=== PATIENT | female | born 1970 | race Caucasian/White ===

== ENCOUNTER 2023-09-18 20:46 | Outpatient (REF) | payer BC, SELFPAY ==
[2023-09-24 09:07] LABS: Age Gdln ACOG Testing Note (.); HPV Aptima Negative (Negative); IGP, Aptima HPV, rfx 16/18,45 Note (.)
== END 2023-09-18 20:47 | disposition home or self-care (01) ==
LOC: LAB 20:46
PROVIDERS: Visit Provider Obstetrics & Gynecology
DX: Z01.419 Encounter for gynecological examination (general) (routine) without abnormal findings (principal)
CPT/HCPCS: G0145

== ENCOUNTER 2023-11-29 07:40 | Outpatient (OUT) | payer BC, SELFPAY ==
--- NOTE | 2023-11-29 07:41 | MM_ITS ---
Patient Name: KIKA DANIELLE MR#: [id number] : 1970 Exam Date: 11/29/2023 Ordering Doctor: DR Kyaw Cruz . RADIOLOGY REPORT PROCEDURE: MM TOMOSYNTHESIS SCREENING BI COMPARISON: MG MAMM SCREEN 3D FADIA CAD, 09/17/2021. MG MAMM SCREEN 3D FADIA CAD, 10/27/2022. INDICATIONS: Screening Calculator Name NCI Breast Cancer Risk Assessment Tool 5 Year Breast Cancer Risk 1.10% Lifetime Breast Cancer Risk 9.70% Personal Breast Cancer No Personal Ovarian Cancer No Treatments None Family Cancers Aunt-paternal with breast cancer at age ~60; Father with colon cancer at age ~60. LOCATION: [facility] BREAST COMPOSITION: The breasts are heterogeneously dense,which may obscure small masses. FINDINGS: DIAGNOSTIC CATEGORY 1--NEGATIVE. NO CHANGE FROM COMPARISON ASSESSMENT. Scattered benign-appearing calcifications are present. Scattered benign-appearing lymph nodes are present. RIGHT BREAST: No significant suspicious finding. LEFT BREAST: No significant suspicious finding. RECOMMENDATIONS: ROUTINE MAMMOGRAM AND CLINICAL EVALUATION IN 12 MONTHS. PLEASE NOTE: A NORMAL MAMMOGRAM DOES NOT EXCLUDE THE POSSIBILITY OF BREAST CANCER. A CLINICALLY SUSPICIOUS PALPABLE LUMP SHOULD BE BIOPSIED. Dictated by: Neo Og MD on 11/29/2023 at 13:02 Approved by: Neo Og MD on 11/29/2023 at 13:03
--- OUTSIDE RECORDS SUMMARY | 2023-11-29 07:44 | XMS_ITS | CCD ---
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 Cleaner Name Role Phone Michelle Cardoza Unavailable NANI, DR MICHELLE Rosas Attending Unavailable CARDOZA, DR MICHELLE Rosas Consulting Unavailable CARDOZA, DR MICHELLE Rosas Primary Care Unavailable CARDOZA, DR MICHELLE Rosas Admitting Unavailable KARASIK ., DR ALVARENGA Admitting Unavailabl e CARDOZA, DR MICHELLE Rosas Primary Care Unavailable KARASIK ., DR ALVARENGA Attending Unavailabl e KARASIK ., DR ALVARENGA Consulting Unavailabl e WEST, DR LESLI Cr Consulting Unavailable ZIEBER, DR FILIPE Chavez Consulting Unavailable CARDOZA, DR MICHELLE Rosas Primary Care Unavailable KARASIK ., DR ALVARENGA Attending Unavailabl e KARASIK ., DR ALVARENGA Consulting Unavailabl e KARASIK ., DR ALVARENGA Admitting Unavailabl e CARDOZA, DR MICHELLE Rosas Primary Care Unavailable TIMMIS, DR SMITH Attending Unavailable TIMMIS, DR SMITH Consulting Unavailable TIMMIS, DR SMITH Admitting Unavailable WEST, DR LESLI Cr Consulting Unavailable SHANNON RIVERA Attending Unavailable Allergies Allergy Classification Reported Allergen(s) Allergy Type Date of Onset Reaction(s) Facility Penicillins (antibiotic) (1 source) Penicillins Drug Allergy 3 PENICILLINS Comment:REACTIO N HAPPENED A CHILD [facility] Sulfonamides (antibiotic) (1 source) Sulfonamides (Antibiotic) Drug Allergy 3 [facility] (2 sources) Penicillin Drug Allergy Unknown [employer] Other (2 sources) Substance with sulfonamide structure and antibacterial mechanism of action (substance) Drug allergy Unknown [employer] Other (1 source) Penicillins Drug allergy (disorder) 4 [facility] (1 source) Sulfonamides (Antibiotic) Drug allergy (disorder) 4 [facility] Medications Current Medications Medication Drug Class(es) Dates Sig (Normalized) Sig (Original) ciprofloxacin 250 mg oral tablet (2 sources) Quinolone Antimicrobial Start: 10-24-2022 take 1 tablet by mouth every twelve hours Ciprofloxacin HCl 250 MG 1 tablet Orally every 12 hrs for 5 day(s) Oct, Active Completed/Discontinued Medications Medication Drug Class(es) Dates Sig (Normalized) Sig (Original) triamcinolone acetonide 40 mg/ml injectable suspension (1 source) Corticosteroid Start: 11-29-2022 Kenalog-40 October, 60 mg Problems Problem Classification Problem Date Documented Da te Episodic/Chronic Genitourinary symptoms and ill-defined conditions (1 source) Dysuria Episodic Immunizations and screening for infectious disease (1 source) Encounter for screening for human papillomavirus (HPV); Translations: [ENC SCREENING HUMAN PAPILLOMAVIRUS] Onset: 09-19-2022 Episodic Other bone disease and musculoskeletal deformities (1 source) Other specified disorders of bone density and structure, left thigh; Translations: [OTH D/O BONE DEN STRUCT LT THIGH] Onset: 11-03-2022 Episodic Other ear and sense organ disorders (4 sources) Sensorineural hearing loss, bilateral; Translations: [SENSORINEURAL HEAR LOSS BILATERAL] Onset: 04-28-2022 Chronic Other screening for suspected conditions (not mental disorders or infectious disease) (8 sources) Encounter for screening mammogram for malignant neoplasm of breast; Translations: [Encounter for screening for malignant neoplasm of cervix] Onset: 09-13-2022 Episodic Other upper respiratory disease (1 source) Seasonal allergic rhinitis; Translations: [Other seasonal allergic rhinitis] Chronic Other upper respiratory disease (1 source) Other seasonal allergic rhinitis Chronic Residual codes; unclassified (1 source) Asymptomatic menopausal state; Translations: [ASYMPTOMATIC MENOPAUSAL STATE] Onset: 11-03-2022 Episodic Residual codes; unclassified (1 source) Family history of malignant neoplasm of breast; Translations: [FAMILY HX MALIG NEOPLASM OF BREAST] Onset: 11-03-2022 Episodic Residual codes; unclassified (1 source) Family history of malignant neoplasm of digestive organs; Translations: [FAM HX MALIG NEOPLASM DIGESTIV ORGN] Onset: 11-03-2022 Episodic Results Test Name Value Interpretation Reference Range Facility XR DEXA BONE DENSITYon 10-28 XR DEXA BONE DENSITY EXAMINATION: XR DEX A BONE DENSITY, 10/27/2022 3:26 PM EDT HISTORY: Menopause present COMPARISON: None. TECHNIQUE: Dual-energy X-ray absorptiometry (DEXA) bone density study performed for the axial skeleton. FINDINGS: SPINE ANALYSIS: Average bone mineral density is 1.209 g/cm2. T-score (standard deviation relative to young adult mean): 0.2 . HIP ANALYSIS: Lowest bone mineral density is within the left femoral trochanter, 0.708 g/cm2. T-score (standard deviation relative to young adult mean): -1.2 . IMPRESSION: [employer] Classification: Osteopenia - Moderate Fracture Risk Electronically authenticated by: FILIPE MORAES Date: 2022-10-28 06:58 Normal [facility] MAMM SCREEN 3D FADIA CADon 10-27-2022 MG MAMM SCREEN 3D FADIA CAD Patient: KIKA KUMAR Exam Date: 10/27/2022 : 1970 Gender:F Ordering : DR LYLE VASQUEZ . Admission #: [id number] Family : Order #: [id number] CLICK HERE TO VIEW EXAM RADIOLOGY REPORT PROCEDURE: MAMMOGRAM SCREENING 3D BILATERAL CAD COMPARISON: MG MAMM SCREEN FADIA W CAD, 06/17/2020. MG MAMM SCREEN 3D FADIA CAD, 09/17/2021. INDICATIONS: Screeening Calculator Name NCI Breast Cancer Risk Assessment Tool 5 Year Breast Cancer Risk 1.10% Lifetime Breast Cancer Risk 9.90% Personal Breast Cancer No Personal Ovarian Cancer No Treatments None Family Cancers Aunt-paternal with breast cancer at age 60; Father with colon cancer at age 60. LOCATION: [facility] BREAST COMPOSITION: Heterogeneously dense,which may obscure small masses. FINDINGS: DIAGNOSTIC CATEGORY 1--NEGATIVE. NO CHANGE FROM COMPARISON ASSESSMENT. Scattered benign-appearing calcifications are present. Scattered benign-appearing lymph nodes are present. RIGHT BREAST: No significant suspicious finding. LEFT BREAST: No significant suspicious finding. RECOMMENDATIONS: ROUTINE MAMMOGRAM AND CLINICAL EVALUATION IN 12 MONTHS. PLEASE NOTE: A NORMAL MAMMOGRAM DOES NOT EXCLUDE THE POSSIBILITY OF BREAST CANCER. A CLINICALLY SUSPICIOUS PALPABLE LUMP SHOULD BE BIOPSIED. Dictated by: Lesli Almazan MD on 10/28/2022 at 07:39 Approved by: Lesli Almazan MD on 10/28/2022 at 07:42 Normal [facility] PAP ACOG PANEL 2: 30 to 65on 09-22-2022 . . Normal [facility] Comment on above: Result Comment: Perf ormed at: WB Performed By: #### [id number] #### [facility] [address] [place] [address] Dr. Jihan Bryant Age Gdln ACOG Testing 30-65 Normal [facility] Comment on above: Performed By: #### [id number] #### [facility] [address] [place] [address] Dr. Jihan Bryant DIAGNOSIS: Comment Normal [facility] Comment on above: Result Comment: NEGA TIVE FOR INTRAEPITHELIAL LESION OR MALIGNANCY. THIS SPECIMEN WAS RESCREENED PART OF OUR HYDROPULPER OPERATOR PROGRAM. Performed at: WB Performed By: #### [id number] #### [facility] [address] [place] [address] Dr. Jihan Bryant HPV Aptima Negative Normal Negative [facility] Comment on above: Result Comment: This nucleic acid amplification test detects fourteen high-risk HPV types (16,18,31,33,35,39,45,51,52,56,58,59,66,68) without differentiation. Performed at: =G Performed By: #### [id number] #### [facility] [address] [place] [address] Dr. Jihan Bryant HPV Genotype Reflex Comment Normal [facility] Comment on above: Result Comment: Crit eria not met, HPV Genotype not performed. Performed at: WB Performed By: #### [id number] #### [facility] [address] [place] [address] Dr. Jihan Bryant Methodology: Comment Normal [facility] Comment on above: Result Comment: This liquid based ThinPrep(R) pap test was screened with the use of an image guided system. Performed at: WB Performed By: #### [id number] #### [facility] [address] [place] [address] Dr. Jihan Bryant Note: Comment Normal [facility] Comment on above: Result Comment: The Pap smear is a screening test designed to aid in the detection of premalignant and malignant conditions of the uterine cervix. It is not a diagnostic procedure and should not be used as the sole means of detecting cervical cancer. Both false-positive and false-negative reports do occur. . Performed at: WB Performed By: #### [id number] #### [facility] [address] [place] [address] Dr. Jihan Bryant Performed by: Comment Normal [facility] Comment on above: Result Comment: Hakan Anderson, Performing Artist (ASCP) Performed at: WB Performed By: #### [id number] #### [facility] [address] [address] [address] Jihan Bryant QC reviewed by: Comment Normal [facility] Comment on above: Result Comment: Catracho Liang, Supervisory Performing Artist (ASCP) Performed at: WB Performed By: #### [id number] #### [facility] [address] [place] [address] Dr. Jihan Bryant Specimen adequacy: Comment Normal [facility] Comment on above: Result Comment: Sati sfactory for evaluation. Areas of partially obscuring inflammatory exudate are present. Performed at: WB Performed By: #### [id number] #### [facility] [address] [place] [address] Dr. Jihan Bryant MRI IACS WO W CONon 04-28-20 22 MRI IACS WO W CON EXAMINATION: MRI IAC S WO W CON HISTORY: Sensorineural hearing loss, bilateral COMPARISON: No relevant comparison available. TECHNIQUE: A limited examination was performed of the internal auditory canals. Images were obtained without and contrast. FINDINGS: IACS: Negative. No evidence of an acoustic schwannoma. INNER EARS: Negative. No abnormal signal intensity. MIDDLE EARS: Negative. No fluid or abnormal soft tissue. MASTOIDS: Negative. No fluid or abnormal soft tissue. BRAIN: Mild scattered white matter signal abnormality, nonspecific.. No edema, mass, or inappropriate atrophy within the field of view. CSF SPACES: Negative. No visible mass. IMPRESSION: Mild white matter disease, nonspecific No acute infarct No evidence of an acoustic schwannoma Electronically authenticated by: LESLI ALMAZAN Date: 2022-04-28 19:05 Normal [facility] CBC AUTO DIFFon 02-25-2022 BASO # 0.1 103/ul Normal 0.0-0.1 [facility] Comment on above: Performed By: #### C BC #### [facility] [address] [address] [address] Jihan Bryant Basophils/100 WBC (Bld) 0.6 % Normal 0.2-2.0 [facility] Comment on above: Performed By: #### C BC #### [facility] [address] [address] [address] Jihan Bryant EO # 0.1 103/ul Normal 0.0-0.7 [facility] Comment on above: Performed By: #### C BC #### [facility] [address] [address] [address] Jihan Bryant Eosinophils/100 WBC (Bld) 1.5 % Normal 0.9-7.0 [facility] Comment on above: Performed By: #### C BC #### [facility] [address] [place] [address] Dr. Jihan Bryant Erythrocyte distribution width (RBC) [Ratio] 13.4 % Normal 11.0-15.0 [facility] Comment on above: Performed By: #### C BC #### [facility] [address] [place] [address] Dr. Jihan Bryant Hematocrit (Bld) [Volume fraction] 46.9 % Normal 36.0-48.0 [facility] Comment on above: Performed By: #### C BC #### [facility] [address] [place] [address] Dr. Jihan Bryant Hemoglobin (Bld) [Mass/Vol] 15.5 g/dL Normal 12.0-16.0 [facility] Comment on above: Performed By: #### C BC #### [facility] [address] [place] [address] Dr. Jihan Bryant IG # 0.04 10e3/ul Critically high 0.00-0.03 [facility] Comment on above: Performed By: #### C BC #### [facility] [address] [place] [address] Dr. Jihan Bryant IG % 0.5 % Normal 0.0-0.5 [facility] Comment on above: Performed By: #### C BC #### [facility] [address] [place] [address] Dr. Jihan Bryant LYMPH # 2.4 103/ul Normal 1.2-3.8 [facility] Comment on above: Performed By: #### C BC #### [facility] [address] [place] [address] Dr. Jihan Bryant Lymphocytes/100 WBC (Bld) 29.5 % Normal 20.5-60.0 [facility] Comment on above: Performed By: #### C BC #### [facility] [address] [place] [address] Dr. Jihan Bryant MANUAL DIFF REQ NO Normal [facility] Comment on above: Performed By: #### C BC #### [facility] [address] [place] [address] Dr. Jihan Byrant MCH (RBC) [Entitic mass] 31.3 pg Normal 26.7-34.0 [facility] Comment on above: Performed By: #### C BC #### [facility] [address] [place] [address] Dr. Jihan Bryant MCHC (RBC) [Mass/Vol] 33.0 g/dL Normal 29.9-35.2 [facility] Comment on above: Performed By: #### C BC #### [facility] [address] [place] [address] Dr. Jihan Bryant MCV (RBC) [Entitic vol] 94.7 fL Normal 81.0-99.0 [facility] Comment on above: Performed By: #### C BC #### [facility] [address] [place] [address] Dr. Jihan Bryant MONO # 0.6 103/ul Normal 0.3-0.8 [facility] Comment on above: Performed By: #### C BC #### [facility] [address] [place] [address] Dr. Jihan Bryant Monocytes/100 WBC (Bld) 7.7 % Normal 1.7-12.0 [facility] Comment on above: Performed By: #### C BC #### [facility] [address] [place] [address] Dr. Jihan Bryant NEUT # 5.0 103/ul Normal 1.4-6.5 [facility] Comment on above: Performed By: #### C BC #### [facility] [address] [place] [address] Dr. Jihan Bryant Neutrophils/100 WBC (Bld) 60.2 % Normal 43.0-75.0 [facility] Comment on above: Performed By: #### C BC #### [facility] [address] [place] [address] Dr. Jihan Bryant Platelet mean volume (Bld) [Entitic vol] 8.9 fL Critically low 9.5-13.5 [facility] Comment on above: Performed By: #### C BC #### [facility] [address] [place] [address] Dr. Jihan Bryant PLT 284 103/ul Normal 150-450 [facility] Comment on above: Performed By: #### C BC #### [facility] [address] [place] [address] Dr. Jihan Bryant RBC 4.95 106/ul Normal 4.20-5.40 [facility] Comment on above: Performed By: #### C BC #### [facility] [address] [place] [address] Dr. Jihan Bryant WBC 8.3 103/ul Normal 4.0-11.0 [facility] Comment on above: Performed By: #### C BC #### [facility] [address] [place] [address] Dr. Jihan Bryant GLYCOHEMOGLOBIN A1Con 2021 ADA RECOMMENDATION SEE BELOW Normal [facility] Comment on above: Result Comment: ADA RECOMMENDED LIMIT 4.0 - 6.0 ADA THERAPEUTIC TARGET < 7.0 ACTION SUGGESTED > 7.0 Performed By: #### A 1C #### [facility] [address] [place] [address] Dr. Jihan Bryant Glucose [Mass/Vol] 111 mg/dL Normal [facility] Comment on above: Performed By: #### A 1C #### [facility] [address] [address] [address] Jihan Bryant HbA1c (Bld) [Mass fraction] 5.5 % Normal 4.5-6.2 [facility] Comment on above: Performed By: #### A 1C #### [facility] [address] [address] [address] Jihan Bryant LIPID PROFILEon 02-25-2022 CHOL-HDL RATIO NORM SEE BELOW Normal [facility] Comment on above: Result Comment: 3.3 - 4.4 LOW RISK 4.4 - 7.1 AVERAGE RISK 7.1 - 11.0 MODERATE RISK >11.0 HIGH RISK Performed By: #### C MP, LIPID, TSH #### [facility] [address] [place] [address] Dr. Jihan Bryant Cholesterol [Mass/Vol] 229 mg/dL Critically high <=200 [facility] Comment on above: Performed By: #### C MP, LIPID, TSH #### [facility] [address] [address] [address] Jihan Bryant Cholesterol in HDL [Mass/Vol] 59 mg/dL Normal 40-60 [facility] Comment on above: Performed By: #### C MP, LIPID, TSH #### [facility] [address] [place] [address] Dr. Jihan Bryant Cholesterol in LDL [Mass/Vol] 149.4 mg/dL Normal [facility] Comment on above: Performed By: #### C MP, LIPID, TSH #### [facility] [address] [address] [address] Jihan Bryant Cholesterol.total/Cho lesterol in HDL [Mass ratio] 3.9 {ratio} Normal [facility] Comment on above: Performed By: #### C MP, LIPID, TSH #### [facility] [address] [place] [address] Dr. Jihan Bryant HDL NORMAL > or = 60 mg/dl - LO W CARDIOVASCULAR RISK <40 mg/dl - HIGH CARDIOVASCULAR RISK Normal [facility] Comment on above: Performed By: #### C MP, LIPID, TSH #### [facility] [address] [address] [address] Jihan Bryant LDL CALC NORMAL SEE BELOW Normal [facility] Comment on above: Result Comment: <100 mg/dl OPTIMAL 100 - 129 mg/dl NEAR OR ABOVE OPTIMAL 130 - 159 mg/dl BORDERLINE HIGH 160 - 189 mg/dl HIGH >190 mg/dl VERY HIGH Performed By: #### C MP, LIPID, TSH #### [facility] [address] [address] [address] Jihan Bryant Triglyceride [Mass/Vol] 103 mg/dL Normal <=150 [facility] Comment on above: Performed By: #### C MP, LIPID, TSH #### [facility] [address] [place] [address] Dr. Jihan Bryant VLDL CALC 20.6 mg/dL Normal [facility] Comment on above: Performed By: #### C MP, LIPID, TSH #### [facility] [address] [place] [address] Dr. Jihan Bryant PROF 14(COMP METB)on 022 Albumin [Mass/Vol] 3.9 g/dL Normal 3.4-5.0 [facility] Comment on above: Performed By: #### C MP, LIPID, TSH #### [facility] [address] [place] [address] Dr. Jihan Bryant Albumin/Globulin [Mass ratio] 1.2 {ratio} Normal [facility] Comment on above: Performed By: #### C MP, LIPID, TSH #### [facility] [address] [place] [address] Dr. Jihan Bryant ALP [Catalytic activity/Vol] 93 U/L Normal 46-116 [facility] Comment on above: Performed By: #### C MP, LIPID, TSH #### [facility] [address] [place] [address] Dr. Jihan Bryant ALT [Catalytic activity/Vol] 22 U/L Normal 14-59 [facility] Comment on above: Performed By: #### C MP, LIPID, TSH #### [facility] [address] [place] [address] Dr. Jihan Bryant Anion gap [Moles/Vol] 9.9 mmol/L Normal [facility] Comment on above: Performed By: #### C MP, LIPID, TSH #### [facility] [address] [address] [address] Jihan Bryant AST [Catalytic activity/Vol] 12 U/L Critically low 15-37 [facility] Comment on above: Performed By: #### C MP, LIPID, TSH #### [facility] [address] [place] [address] Dr. Jihan Bryant Bilirubin [Mass/Vol] 0.9 mg/dL Normal 0.2-1.0 [facility] Comment on above: Performed By: #### C MP, LIPID, TSH #### [facility] [address] [place] [address] Dr. Jihan Bryant Calcium [Mass/Vol] 9.1 mg/dL Normal 8.5-10.1 [facility] Comment on above: Performed By: #### C MP, LIPID, TSH #### [facility] [address] [place] [address] Dr. Jihan Bryant Chloride [Moles/Vol] 104 mmol/L Normal 98-107 [facility] Comment on above: Performed By: #### C MP, LIPID, TSH #### [facility] [address] [place] [address] Dr. Jihan Bryant CO2 [Moles/Vol] 30.4 mmol/L Normal 21.0-32.0 [facility] Comment on above: Performed By: #### C MP, LIPID, TSH #### [facility] [address] [place] [address] Dr. Jihan Bryant Creatinine [Mass/Vol] 0.71 mg/dL Normal 0.55-1.02 [facility] Comment on above: Performed By: #### C MP, LIPID, TSH #### [facility] [address] [place] [address] Dr. Jihan Bryant EGFR-AF ICELANDIC >60 Normal >=60 [facility] Comment on above: Performed By: #### C MP, LIPID, TSH #### [facility] [address] [address] [address] Jihan Bryant EGFR-NON AF ICELANDIC >60 Normal >=60 [facility] Comment on above: Performed By: #### C MP, LIPID, TSH #### [facility] [address] [address] [address] Jihan Bryant Globulin (S) [Mass/Vol] 3.2 g/dL Normal [facility] Comment on above: Performed By: #### C MP, LIPID, TSH #### [facility] [address] [place] [address] Dr. Jihan Bryant Glucose [Mass/Vol] 104 mg/dL Normal 74-106 [facility] Comment on above: Performed By: #### C MP, LIPID, TSH #### [facility] [address] [place] [address] Dr. Jihan Bryant Potassium [Moles/Vol] 4.3 mmol/L Normal 3.5-5.1 [facility] Comment on above: Performed By: #### C MP, LIPID, TSH #### [facility] [address] [place] [address] Dr. Jihan Bryant Protein [Mass/Vol] 7.1 g/dL Normal 6.4-8.2 [facility] Comment on above: Performed By: #### C MP, LIPID, TSH #### [facility] [address] [place] [address] Dr. Jihan Bryant Sodium [Moles/Vol] 140 mmol/L Normal 136-145 [facility] Comment on above: Performed By: #### C MP, LIPID, TSH #### [facility] [address] [place] [address] Dr. Jihan Bryant Urea nitrogen [Mass/Vol] 18.0 mg/dL Normal 7.0-18.0 [facility] Comment on above: Performed By: #### C MP, LIPID, TSH #### [facility] [address] [place] [address] Dr. Jihan Bryant Urea nitrogen/Creatinine [Mass ratio] 25.4 mg/mg Normal [facility] Comment on above: Performed By: #### C MP, LIPID, TSH #### [facility] [address], [place] [address] Dr. Jihan Bryant TSHon 02-25-2022 TSH 2.224 uIU/mL Normal 0.358-3.740 [facility] Comment on above: Performed By: #### C MP, LIPID, TSH #### [facility] [address], [place] [address] Dr. Jihan Bryant Ambulatory Clinical Summaryo n 08-19-2020 Ambulatory Clinical Summary {[id number] Normal [facility] General Surgery Office/Clini c Noteon 08-19-2020 General Surgery Office/Clinic Note HPI Staff 3 week post operative visit following umbilical hernia repair at [facility]. Denies pain or complications. History of Present Illness 3 weeks s/p primary umbilical hernia repair; doing well, denies pain, no drainage from incision, wearing abdominal binder; no strenuous activities; Review of Systems ROS - Provider Constitutional: no fever, no sweats, no weight loss. Eyes: no glasses, no blurred vision, no visual loss. ENMT: no dentures, no hoarseness, no swallowing difficulties, no hearing loss, no ear infection(s), no nose bleeds. Cardiovascular: normal blood pressure, no chest pain, regular heartbeat, no heart murmur. Respiratory: no shortness of breath, no cough, no asthma, no wheezing. Gastrointestinal: no nausea, no vomiting, no diarrhea, no constipation, no blood in stool, no change in bowel habits, no abdominal pain, no hepatitis. Genitourinary: no kidney stones, no urine infection, no dysuria. Musculoskeletal: no pain, no weakness. Skin: no changing moles, no rash, no skin lumps. Neurologic: no seizures, no epilepsy, no headache. Psychiatric: no emotional or psychiatric problem. Heme/Lymph: no bleeding problems, no anemia, no blood clots, no transfusions. Allergy/Immunologic: no swollen lymph nodes/glands, no IV drug abuse. Other: Additional ROS info: Except as noted in the above Review of Systems and in the History of Present Illness, all other systems have been reviewed and are negative or noncontributory. Physical Exam abd: soft, normal bs; incision without erythema or drainage, no ecchymoses, no seroma or recurrent hernias. Assessment/Plan 1. Umbilical hernia (K42.9: Umbilical hernia without obstruction or gangrene) doing well, continue to wear abdominal binder for 1 more week and no lifting > 10 lbs, then gradually increase activities back to normal; call with problems/questions. 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 Medications Zyrtec, Daily Allergies penicillin (Rash) sulfa drugs (Rash) Social History Alcohol - Denies Alcohol Use, 06/23/2020 Substance Abuse - Denies Substance Abuse, 06/23/2020 Tobacco Never (less than 100 in lifetime) Tobacco Use:., 07/21/2020 Family History Anxiety: Mother. Arthritis: Mother. COPD: Mother and Father. Colon cancer: Father. Depression: Mother. Diabetes mellitus type 2: Mother. Heart disease: Father. [facility] Comment on above: Result Comment: Elec tronically Signed By: Dilshad MARTELL MD\.br\Date and Time Signed: 08/19/20 13:26 EST Consultation Noteon 08-11-19 21 Consultation Note [id number] .[id number]:127 Normal [facility] RAD - MRI Reporton RAD - MRI Report [id number] .[id number]:127 Normal [facility] Ambulatory Clinical Summaryo n 08-05-2020 Ambulatory Clinical Summary {[id number]}CD:[id number] [facility] General Surgery Office/Clini c Noteon 08-05-2020 General Surgery Office/Clinic Note History of Present Illness 1 week s/p primary repair of small umbilical hernia at time of open ovarian cystectomy by Dr Vasquez; patient doing well, mild soreness, not taking any pain medication, normal bms, no drainage from incision, voiding well, no fevers, no N/V; wearing abdominal binder. Review of Systems ROS - Provider Constitutional: no fever, no sweats, no weight loss. Eyes: no glasses, no blurred vision, no visual loss. ENMT: no dentures, no hoarseness, no swallowing difficulties, no hearing loss, no ear infection(s), no nose bleeds. Cardiovascular: normal blood pressure, no chest pain, regular heartbeat, no heart murmur. Respiratory: no shortness of breath, no cough, no asthma, no wheezing. Gastrointestinal: no nausea, no vomiting, no diarrhea, no constipation, no blood in stool, no change in bowel habits, mild abdominal pain, no hepatitis. Genitourinary: no kidney stones, no urine infection, no dysuria. Musculoskeletal: no pain, no weakness. Skin: no changing moles, no rash, no skin lumps. Neurologic: no seizures, no epilepsy, no headache. Psychiatric: no emotional or psychiatric problem. Heme/Lymph: no bleeding problems, no anemia, no blood clots, no transfusions. Allergy/Immunologic: no swollen lymph nodes/glands, no IV drug abuse. Other: Additional ROS info: Except as noted in the above Review of Systems and in the History of Present Illness, all other systems have been reviewed and are negative or noncontributory. Physical Exam abd: soft, normal bs, nontender, nondistended, incision healing well, glue intact; no drainage, mild resolving ecchymoses. Assessment/Plan 1. Umbilical hernia (K42.9: Umbilical hernia without obstruction or gangrene) doing well, continue no lifting > 10 lbs for an additional 3 weeks, continue to wear abdominal binder; f/u in 2 weeks, call sooner if problems/questions. 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 Medications Zyrtec, Daily Allergies penicillin (Rash) sulfa drugs (Rash) Social History Alcohol - Denies Alcohol Use, 06/23/2020 Substance Abuse - Denies Substance Abuse, 06/23/2020 Tobacco Never (less than 100 in lifetime) Tobacco Use:., 07/21/2020 Family History Anxiety: Mother. Arthritis: Mother. COPD: Mother and Father. Colon cancer: Father. Depression: Mother. Diabetes mellitus type 2: Mother. Heart disease: Father. [facility] Comment on above: Result Comment: Elec tronically Signed By: NIURKA PIERRE, Dilshad Dahl\Date and Time Signed: 08/05/20 17:23 EST Operative Reporton 1 Operative Report [id number] .[id number]:127 Normal [facility] Operative Reporton 1 Operative Report [id number] .00CD:127 [facility] Ambulatory Clinical Summaryo n 07-21-2020 Ambulatory Clinical Summary {[id number] [facility] Patient Educationon 07-21-19 21 Patient Education Urinary Tract Infection Urinary tract infections (UTIs) can develop anywhere along your urinary tract. Your urinary tract is your body's drainage system for removing wastes and extra water. Your urinary tract includes two kidneys, two ureters, a bladder, and a urethra. Your kidneys are a pair of lawson-shaped organs. Each kidney is about the size of your fist. They are located below your ribs, one on each side of your spine. CAUSES Infections are caused by microbes, which are microscopic organisms, including fungi, viruses, and bacteria. These organisms are so small that they can only be seen through a microscope. Bacteria are the microbes that most commonly cause UTIs. SYMPTOMS Symptoms of UTIs may vary by age and gender of the patient and by the location of the infection. Symptoms in young women typically include a frequent and intense urge to urinate and a painful, burning feeling in the bladder or urethra during urination. Older women and men are more likely to be tired, shaky, and weak and have muscle aches and abdominal pain. A fever may mean the infection is in your kidneys. Other symptoms of a kidney infection include pain in your back or sides below the ribs, nausea, and vomiting. DIAGNOSIS To diagnose a UTI, your caregiver will ask you about your symptoms. Your caregiver also will ask to provide a urine sample. The urine sample will be tested for bacteria and white blood cells. White blood cells are made by your body to help fight infection. TREATMENT Typically, UTIs can be treated with medication. Because most UTIs are caused by a bacterial infection, they usually can be treated with the use of antibiotics. The choice of antibiotic and length of treatment depend on your symptoms and the type of bacteria causing your infection. HOME CARE INSTRUCTIONS ? If you were prescribed antibiotics, take them exactly as your caregiver instructs you. Finish the medication even if you feel better after you have only taken some of the medication. ? Drink enough water and fluids to keep your urine clear or pale yellow. ? Avoid caffeine, tea, and carbonated beverages. They tend to irritate your bladder. ? Empty your bladder often. Avoid holding urine for long periods of time. ? Empty your bladder before and after sexual intercourse. ? After a bowel movement, women should cleanse from front to back. Use each tissue only once. SEEK MEDICAL CARE IF: ? You have back pain. ? You develop a fever. ? Your symptoms do not begin to resolve within 3 days. SEEK IMMEDIATE MEDICAL CARE IF: ? You have severe back pain or lower abdominal pain. ? You develop chills. ? You have nausea or vomiting. ? You have continued burning or discomfort with urination. MAKE SURE YOU: ? Understand these instructions. ? Will watch your condition. ? Will get help right away if you are not doing well or get worse. Document Released: 03/29/2006 Document Revised: 12/18/2012 Document Reviewed: 07/27/2012 ExitCare? Patient Information ?2013 [facility] [employer] [facility]. [facility] Urology Office/Clinic Noteon 07-21-2020 Urology Office/Clinic Note Chief Complaint Pt is new and referred by Dr. Vasquez pt is having ureter stents put in on 07/29/2020. This patient is a 49-year-old female with a history of a left ovarian cyst and umbilical hernia. She is being scheduled for combined general surgery and [employer] surgery procedure. A request has been made for placement of ureteral stents to aid in the dissection of the pelvic portion of procedure. HPI Staff Pt is new and here referred by pt is having ureter stents put in on 07/29/2020. Pain with urination:Pt denies pain and burning Blood in urine:Pt denies Incomplete bladder emptying:Pt denies Frequency:Pt states she goes a lot but does not have urgency Urgency:Pt denies Nocturia:Pt denies Hesitancy:Pt denies Urination requires straining:P denies Stream:Pt denies Stream starts and stops:Pt denies Leaking before getting to the restroom:Pt denies Urinary incontinence without sensory awareness:Pt denies Temporarily unable to restrain urination with body movement:Pt states occasionally Wearing pad/Depends:Pt denies Urine odor:Pt denies Flank/Back pain:Pt denies Abdominal pain:Pt denies History of Present Illness Reviewed urine, MRI, and referral papers from Dr. Vasquez. There have been no associated fever, chills, flank pain or blood in the urine. Pt. denies any pain/burning with urination at this time. Review of Systems ROS - Provider Constitutional: denies weight loss, denies hot flashes. Eyes: denies eye problems. Gastrointestinal: denies nausea, denies vomiting. Cardiovascular: denies chest pain or angina. Integumentary: no dryness Musculoskeletal: denies musculoskeletal symptoms. ENMT: denies otolaryngeal symptoms. Respiratory: no shortness of breath. Heme/Lymph: denies easy bleeding tendency, denies easy bruising tendency. Psychiatric: no confusion, no anxiety. Genitourinary: denies vaginal discharge, denies incontinence, denies dysuria, denies hematuria, denies urinary frequency, denies amenorrhea, denies menorrhagia, denies abnormal bleeding, denies pelvic pain, denies genital sores, and denies decreased libido. Physical Exam Vitals & Measurements HR: 82(Peripheral) RR: 16 BP: 120/81 HT: 167 cm HT: 167.0 cm WT: 88.0 kg WT: 88.0 kg BMI: 31.55 General Appearance: alert , no acute distress, well nourished, well developed female. Head: normocephalic . Eyes: normal orbit and globe. ENMT: normal examination of external ears. Chest: Lungs CTA, respirations non labored . Cardiovascular: regular rate and rhythm. Abdomen: soft, non distended, no tenderness, no mass or organomegaly, no hernia. Genitourinary: bladder nonpalpable, no flank tenderness. Lymph Nodes: unremarkable palpation of the cervical area. Skin: warm, dry, no bruising. Psychiatric: cooperative, affect appropriate for age, normal judgement, euthymic mood. Assessment/Plan This patient has a left ovarian cyst and umbilical hernia both of which is scheduled for surgery. She is here today to discuss the urologic portion of the procedure that will include cystoscopy and bilateral ureteral stent placement. The procedure, risk and potential complications have been discussed. Informed consent has been obtained. 1. Ovarian cyst (N83.209: Unspecified ovarian cyst, unspecified side) Pt. referred by Dr. Vasquez and will be having surgery with him on 07/29/2020. MRI done on 06/23/2020 showed large 18cm simple appearing cystic structure within the midline pelvis and lower abd. of uncertain etiology. Today I discussed with the pt. having Cysto/ureteral stent placement prior to the procedure. All questions/concerns were discussed. Pt. to call the office if sheencounters any issues prior. Pt. acknowledges understanding. 2. Umbilical hernia (K42.9: Umbilical hernia without obstruction or gangrene) Surgery will be on 07/29/2020. 3. Stress incontinence (N39.3: Stress incontinence (female) (male)) Intermittent. Pt. is doing well overall w/ his urination w/ no bothersome symptoms. Orders: Urnls Dip Stick Auto w/o Microscopy POC [id number] I have reviewed the previous health record information and history for this pt. from Dr. Cummings. Follow-up With When Contact Information Emiliano Mcconnell MD, Tony Schaefer [address] [place] [address]- Additional Instructions: Patient Education Urinary Tract Infection Deanna Flaherty , personally scribed for Dr. Cummings on 07/21/2020 09:49:20. Documentation recorded by the scribe, Deanna Lee, accurately reflects the services(s) I performed and decisions made by me. Authenticated by Dr. Cummings on 07/21/2020 09:57:29. 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 Medications Zyrtec, Daily Allergies penicillin (Rash) sulfa drugs (Rash) Social History Alcohol - Denies Alcohol Use, 06/23/2020 Substance Abuse - Denies Substance Abuse, 06/23/2020 Tobacco Never (less than 100 in lifetime) Tobacco Use:., 07/21/2020 Family History Anxiety: Mother. Arthritis: Mother. COPD: Mother and Father. Colon cancer: Father. Depression: Mother. Diabetes mellitus type 2: Mother. Heart disease: Father. Lab Results Ambulatory Point of Care Results Bilirubin Urine Dipstick: 1+ Small (07/21/20 09:04:00) Blood Urine Dipstick: Negative (07/21/20 09:04:00) Glucose Urine Dipstick: Negative (07/21/20 09:04:00) Ketones Urine Dipstick: 1+ 15 mg/dl (07/21/20 09:04:00) Leukocytes Urine Dipstick: Negative (07/21/20 09:04:00) Nitrite Urine Dipstick: Negative (07/21/20 09:04:00) Protein Urine Dipstick: Trace (07/21/20 09:04:00) Specific Runge Urine Dipstick: >=1.030 (07/21/20 09:04:00) Urine Appearance Urine Dipstick: Clear (07/21/20 09:04:00) Urine Color Urine Dipstick: Dark yellow (07/21/20 09:04:00) Urobilinogen Urine Dipstick: Normal 0.2-1 EU/dl (07/21/20 09:04:00) pH Urine Dipstick: 5 (07/21/20 09:04:00) Diagnostic Results Urinalysis was reviewed. No evidence of infection was noted. Normal [facility] Comment on above: Result Comment: Elec tronically Signed By: Emiliano Mcconnell MD, Tony L\.br\Date and Time Signed: 07/21/20 09:57 EST\.br\Electronically Co-Signed By: Deanna Lee MA\.br\Date and Time Co-Signed: 07/21/20 09:49 EST Consent for Procedure/Surger yon 07-08-2020 Consent for Procedure/Surgery [id number] .[id number]:127 Normal [facility] Ambulatory Clinical Summaryo n 06-24-2020 Ambulatory Clinical Summary {[id number]}CD:[id number] Normal [facility] Facesheeton 06-24-2020 Facesheet [id number]. 00CD:127 Normal [facility] Provider Letter FTon 06-24 Provider Letter FT MICHELLE CARDOZA, [address] [place] [address] Re: KIKA KUMAR Date of : 1970 Thank you for your referral of Kika Kumar who was seen on consultation on June 23, 2020, for umbilical hernia. A possible combined surgery is planned. I have enclosed my consultation notes for your review. I will be happy to follow Kika should her symptoms persist. Sincerely, Dilshad Martell MD General Surgery [facility] General Surgery Office/Clini c Noteon 06-23-2020 General Surgery Office/Clinic Note Chief Complaint referral for umbilical hernia HPI Staff 49 year old female presents on consultation from Dr. Cardoza for umbilical hernia. Present for greater than one year. History of Present Illness 49 yo female with 1 year h/o umbilical hernia, no change in size, sore at times, no skin changes, no N/V or bowel changes; no incisions through umbilicus; abdominal operations significant for c section via Pfannenstiel incision, and vaginal hysterectomy; patient has large ovarian cyst that Dr Vasquez is evaluating for surgery, and is interested in a possible combined procedure; no asa or NSAID use; no tobacco use. had MRI of pelvis today, no abdominal ct scans. Review of Systems PHQ Score Initial Depression Screen Score: 0 ROS - Provider Constitutional: no fever, no sweats, no weight loss. Eyes: no glasses, no blurred vision, no visual loss. ENMT: no dentures, no hoarseness, no swallowing difficulties, no hearing loss, no ear infection(s), no nose bleeds. Cardiovascular: normal blood pressure, no chest pain, regular heartbeat, no heart murmur. Respiratory: no shortness of breath, no cough, no asthma, no wheezing. Gastrointestinal: no nausea, no vomiting, no diarrhea, no constipation, no blood in stool, no change in bowel habits, no abdominal pain, no hepatitis. Genitourinary: no kidney stones, no urine infection, no dysuria. Musculoskeletal: no pain, no weakness. Skin: no changing moles, no rash, no skin lumps. Neurologic: no seizures, no epilepsy, no headache. Psychiatric: no emotional or psychiatric problem. Heme/Lymph: no bleeding problems, no anemia, no blood clots, no transfusions. Allergy/Immunologic: no swollen lymph nodes/glands, no IV drug abuse. Other: Additional ROS info: Except as noted in the above Review of Systems and in the History of Present Illness, all other systems have been reviewed and are negative or noncontributory. Physical Exam Vitals & Measurements T: 36.5 ?C (Tympanic) HR: 76(Peripheral) RR: 16 BP: 126/82 HT: 167.6 cm HT: 167.64 cm WT: 87.4 kg WT: 87.4 kg BMI: 31.1 HEENT: normal conjunctiva, sclera clear, no scleral icterus, EOM intact, PERRLA. oral mucosa moist without lesions Neck: trachea midline , no mass, symmetric, no thyromegaly or nodules. no adenopathy Respiratory: lungs CTA, respirations non labored. Cardiovascular: regular rate and rhythm, no murmur, , no pedal edema or varicosities. Gastrointestinal: obese, soft, non distended, no tenderness, no masses, approximately 1 cm incarcerated umbilical hernia, mild tenderness, no skin changes diastasis recti no, no hepatosplenomegaly. normal bs Lymphatic: no cervical adenopathy, no axillary adenopathy, no inguinal adenopathy. Musculoskeletal: normalgait, digits and nails without infection, nodes, cyanosis, clubbing. Skin: no rashes, no lesions, no ulcers, no subcutaneous nodules, induration. Psychiatric/Neuro: oriented to time, place, person, judgement normal, affect appropriate for age, insight intact, no focal deficits. Tests: review of old records completed, Discussed surgical options, risks, and possible complications with patient. Assessment/Plan 1. Umbilical hernia (K42.9: Umbilical hernia without obstruction or gangrene) possible combined surgery with ovarian cyst removal; await Dr Vasquez's plan; would favor primary repair due to small hernia. informed consent obtained. 2. BMI 31.0-31.9,adult (Z68.31: Body mass index [BMI] 31.0-31.9, adult) recommend diet and exercise. Ordered: Most recent diastolic blood pressure 80-89 mm Hg 3079F Systolic BP <130 mm Hg (Most Recent) 3074F Follow-up No qualifying data available Patient Education Exercise to Lose Weight, [id number] Problem List/Past Medical History Ongoing Allergic rhinitis, seasonal Umbilical hernia Historical No qualifying data Procedure/Surgical History LEEP (12/01/2013), Vaginal total hysterectomy (07/03/2013), section. Medications No active medications Allergies penicillin (Rash) sulfa drugs (Rash) Social History Alcohol - Denies Alcohol Use, 06/23/2020 Substance Abuse - Denies Substance Abuse, 06/23/2020 Tobacco Never (less than 100 in lifetime) Tobacco Use:., 06/23/2020 Family History Diabetes mellitus type 2: Mother. Primary malignant neoplasm of colon: Father. Normal [facility] Comment on above: Result Comment: Elec tronically Signed By: NIURAK PIERRE, Dilshad Dahl\Date and Time Signed: 06/23/20 16:50 EST Patient Educationon 06-23-20 20 Patient Education Exercise to Lose Weight Exercise and a healthy diet may help you lose weight. Your doctor may suggest specific exercises. EXERCISE IDEAS AND TIPS ? Choose low-cost things you enjoy doing, such as walking, bicycling, or exercising to workout videos. ? Take stairs instead of the elevator. ? Walk during your lunch break. ? Park your car further away from work or school. ? Go to a gym or an exercise class. ? Start with 5 to 10 minutes of exercise each day. Build up to 30 minutes of exercise 4 to 6 days a week. ? Wear shoes with good support and comfortable clothes. ? Stretch before and after working out. ? Work out until you breathe harder and your heart beats faster. ? Drink extra water when you exercise. ? Do not do so much that you hurt yourself, feel dizzy, or get very short of breath. Exercises that burn about 150 calories: ? Running 1 ? miles in 15 minutes. ? Playing volleyball for 45 to 60 minutes. ? Washing and waxing a car for 45 to 60 minutes. ? Playing touch football for 45 minutes. ? Walking 1 ? miles in 35 minutes. ? Pushing a stroller 1 ? miles in 30 minutes. ? Playing basketball for 30 minutes. ? Raking leaves for 30 minutes. ? Bicycling 5 miles in 30 minutes. ? Walking 2 miles in 30 minutes. ? Dancing for 30 minutes. ? Shoveling snow for 15 minutes. ? Swimming laps for 20 minutes. ? Walking up stairs for 15 minutes. ? Bicycling 4 miles in 15 minutes. ? Gardening for 30 to 45 minutes. ? Jumping rope for 15 minutes. ? Washing windows or floors for 45 to 60 minutes. Document Released: 07/22/2011 Document Revised: 09/10/2012 Document Reviewed: 07/22/2011 ExitCare? Patient Information ?2014 [facility] [employer] [facility] Physician Referralon 020 Physician Referral [id number] .[id number]:127 [facility] Encounters Encounter Date Encounter Type Care Provider Facility Start: 11-24-2023 End: 11-24-2023 ambulatory [facility] Work Phone: Start: 11-24-2023 End: 11-24-2023 Patient encounter procedure [facility] Work Phone: Start: 09-18-2023 End: 09-18-2023 ambulatory SHANNON RIVERA Not Available Start: 11-29-2022 End: 11-29-2022 ambulatory Michelle Cardoza Other [employer] Other Start: 11-29-2022 Nursing evaluation o f patient and report Michelle Cardoza [facility] Start: 10-27-2022 End: 10-28-[address] LYLE VASQUEZ . Facility:[facility] Start: 10-24-2022 End: 10-24-2022 ambulatory Michelle Cardoza Other [employer] Other Start: 10-24-2022 Nursing evaluation o f patient and report Michelle Cardoza [facility] Start: 09-13-2022 End: 09-13-[address] MICHELLE CARDOZA Facility:[facility] Start: 04-28-2022 End: 04-29-[address] MICHELLE CARDOZA Facility:[facility] Start: 02-28-2022 Encounter for genera l adult medical examination without abnormal findings DR MICHELLE CARDOZA [facility] Start: 02-25-2022 End: 02-26-[address] MICHELLE CARDOZA Facility:[facility] Start: 02-25-2022 End: 02-26-2022 Encounter for general adult medical examination without abnormal findings DR MICHELLE CARDOZA Facility:[facility] Payers Date Payer Category Payer [facility] [id number] 2019 Unknown [id number] 1970 Unknown [id number] 1970 Unknown [id number] [id number] [id number] 1970 Unknown [id number] [id number] [id number] 1970 Unknown [id number] 2.16.84 [id number] 1970 Unknown [id number] Social History Date Type Detail Facility Sex Assigned At [employer] Other Start: 1970 Sex Assigned At Female F [facility] Evaluation note 11-29-2022 Note Date & Type Note Facility 11-29-2022 Evaluation note Encounter Date Diagnosis Assessment Notes October, Seasonal allergic rhinitis, unspecified trigger (ICD-10 - J30.2) [facility] Other Evaluation note 10-24-2022 Note Date & Type Note Facility 10-24-2022 Evaluation note Encounter Date Diagnosis Assessment Notes Oct, Dysuria (ICD-10 - R30.0) [facility] Other Evaluation note Note Date & Type Note Facility Evaluation note No assessment information availa [facility] Work Phone: Summary Purpose Family History No Family History Records FoundNo Family History Records FoundNo Family History Records Found Advance Directives Advance Directive Response Recorded Date/ Time Advance Directives No November 23 10:04am Chief Complaint and Reason for Visit Chief Complaint Allergy Shot Additional Source Comments INFORMATION SOURCE (unrecogn ized section and content) DATE CREATED AUTHOR 08/21/2020 [facility] DATE CREATED AUTHOR AUTHOR'S ORGANIZ ATION 11/04/2022 [facility] DATE CREATED AUTHOR AUTHOR'S ORGANIZ ATION 09/19/2023 [facility] EPIC REASON FOR VISIT (unrecogniz ed section and content) UA-Possible UTIAllergy Shot Care Teams (unrecognized sec tion and content) Team Status: Active Member Role Status Dates Michelle Cardoza MD Primary Care Provider Active Team Status: Inactive Member Role Status Dates Michelle Cardoza MD Primary Care Provide r, Attending Provider Active Start: November 24, 2023 End: November 24, 2023 Goals (unrecognized section and content) Goals may be documented in a n alternate section FOR RECORDS PERTAINING TO PATIENTS WHO ARE OR HAVE BEEN ENROLLED IN A CHEMICAL DEPENDENCY/SUBSTANCEABUSE PROGRAM, SOME INFORMATION MAY BE OMITTED. This clinical summary was aggregated from multiple sources. Caution should be exercised in using it in the provision of clinical care. This summary normalizes information from multiple sources, and as a consequence, information in this document may materially change the coding, format and clinical context of patient data. In addition, data may be omitted in some cases. CLINICAL DECISIONS SHOULD BE BASED ON THE PRIMARY CLINICAL RECORDS. [facility] [employer] [facility]. provides no warranty or guarantee of the accuracy or completeness of information in this document.
== END 2023-11-29 07:41 | disposition home or self-care (01) ==
LOC: MAMMO 07:40
PROVIDERS: PCP Family Medicine; Visit Provider Obstetrics & Gynecology
DX: Z00.00 Encounter for general adult medical examination without abnormal findings (principal); Z12.31 Encounter for screening mammogram for malignant neoplasm of breast; Z80.3 Family history of malignant neoplasm of breast; Z80.0 Family history of malignant neoplasm of digestive organs
CPT/HCPCS: 36415; 77063; 77067; 80053; 80061; 83036; 84443; 85025

== ENCOUNTER 2023-11-29 08:18 | Outpatient (OUT) | payer BC, SELFPAY ==
--- OUTSIDE RECORDS SUMMARY | 2023-11-29 08:35 | XMS_ITS ---
Patient Summarization (C-CDA 2.1 CCD) Created on: November 29, 2023 Kika Vidales : 1970 Sex: Female Author Organization Sample organization Care Team Providers Care Access Manager Name Role Phone Michelle Cardoza Unavailable NANI, [...] 3 PENICILLINS Comment:REACTIO N HAPPENED A CHILD [facility] Sulfonamides (antibiotic) (1 source) Sulfonamides (Antibiotic) Drug Allergy 3 [facility] (2 sources) Penicillin Drug Allergy Unknown [facility] Other (2 sources) Substance with sulfonamide structure and antibacterial mechanism of action (substance) Drug allergy Unknown [facility] Other (1 source) Penicillins Drug allergy (disorder) 4 [facility] (1 source) Sulfonamides (Antibiotic) Drug allergy (disorder) 4 [facility] Encounters Encounter Date Encounter Type Care Provider Facility Start: 11-24-2023 End: 11-24-2023 ambulatory [facility] Work Phone: Start: 11-24-2023 End: 11-24-2023 Patient encounter procedure [facility] Work Phone: Start: 09-18-2023 End: 09-18-2023 ambulatory SHANNON RIVERA Not Available Start: 11-29-2022 End: 11-29-2022 ambulatory Michelle Cardoza Other [facility] Other Start: 11-29-2022 Nursing evaluation o f patient and report Michelle Cardoza [facility] Start: 10-27-2022 End: 10-28-[address] LYLE VASQUEZ . Facility:[facility] Start: 10-24-2022 End: 10-24-2022 ambulatory Michelle Cardoza Other [facility] Other Start: 10-24-2022 Nursing evaluation o f patient and report Michelle Cardoza [facility] Start: 09-13-2022 End: 09-13-[address] MICHELLE CARDOZA Facility:[facility] Start: 04-28-2022 End: 04-29-[address] MICHELLE CARDOZA Facility:[facility] Start: 02-28-2022 Encounter for genera l adult medical examination without abnormal findings DR MICHELLE CARDOZA [facility] Start: 02-25-2022 End: 02-26-[address] MICHELLE CARDOZA Facility:[facility] Start: 02-25-2022 End: 02-26-2022 Encounter for general adult medical examination without abnormal findings DR MICHELLE CARDOZA Facility:[facility] Medications Current Medications Medication Drug Class(es) Dates [...] Corticosteroid Start: 11-29-2022 Kenalog-40 October, 60 mg Payers Date Payer Category Payer [facility] [id number] 2019 Unknown [id number] 1970 Unknown [id number] 2.16.84 [id number] 1970 Unknown [id number] 2.16.84 [id number] 1970 Unknown [id number] 2.16.84 [id number] 1970 Unknown [id number] 2.16.84 [id number] 1970 Unknown [id number] 2.16.84 [id number] Problems Problem Classification Problem Date Documented Da [...] by: FILIPE MORAES Date: 2022-10-28 06:58 Normal [facility] MAMM SCREEN 3D FADIA CADon 10-27-2022 MG MAMM SCREEN 3D FADIA CAD Patient: KIKA KUMAR Exam Date: 10/27/2022 : 1970 Gender:F Ordering : DR LYLE VASQUEZ . Admission #: [id number] Family : Order #: [id number] CLICK HERE TO VIEW EXAM RADIOLOGY REPORT [...] colon cancer at age 61. LOCATION: [facility] BREAST COMPOSITION: Heterogeneously dense,which may obscure [...] Almazan MD on 10/28/2022 at 07:42 Normal [facility] PAP ACOG PANEL 2: 30 to 65on 09-22-2022 . . Normal [facility] Comment on above: Result Comment: Perf ormed at: WB Performed By: #### [id number] #### [facility] [address] [address] [address] Jihan Bryant Age Gdln ACOG Testing 30-65 Normal [facility] Comment on above: Performed By: #### [id number] #### [facility] [address] [place] [address] Dr. Jihan Bryant DIAGNOSIS: Comment Normal [facility] Comment on above: Result Comment: NEGA TIVE FOR INTRAEPITHELIAL LESION OR MALIGNANCY. THIS SPECIMEN WAS RESCREENED PART OF OUR LAUNDRY MARKER SUPERVISOR PROGRAM. Performed at: WB Performed By: #### [id number] #### [facility] [address] [address] [address] Jihan Bryant HPV Aptima Negative Normal Negative [facility] Comment on above: Result Comment: This nucleic acid amplification test detects fourteen high-risk HPV types (16,18,31,33,35,39,45,51,52,56,58,59,66,68) without differentiation. Performed at: =G Performed By: #### [id number] #### [facility] [address] [address] [address] Jihan Bryant HPV Genotype Reflex Comment Normal [facility] Comment on above: Result Comment: Crit eria not met, HPV Genotype not performed. Performed at: WB Performed By: #### [id number] #### [facility] [address] [place] [address] Dr. Jihan Bryant Methodology: Comment Normal [facility] Comment on above: Result Comment: This liquid based ThinPrep(R) pap test was screened with the use of an image guided system. Performed at: WB Performed By: #### [id number] #### [facility] [address] [place] [address] Dr. Jihan Bryant Note: Comment Normal [facility] Comment on above: Result Comment: The Pap smear is a screening test designed to aid in the detection of premalignant and malignant conditions of the uterine cervix. It is not a diagnostic procedure and should not be used as the sole means of detecting cervical cancer. Both false-positive and false-negative reports do occur. . Performed at: WB Performed By: #### [id number] #### [facility] [address] [place] [address] Dr. Jihan Bryant Performed by: Comment Normal [facility] Comment on above: Result Comment: Hakan Anderson, Passenger Brakeman (ASCP) Performed at: WB Performed By: #### 4 [id number] #### [facility] [address] [place] [address] Dr. Jihan Bryant QC reviewed by: Comment Normal [facility] Comment on above: Result Comment: Catracho Liang, Supervisory Passenger Brakeman (ASCP) Performed at: WB Performed By: #### [id number] #### [facility] [address] [place] [address] Dr. Jihan Bryant Specimen adequacy: Comment Normal [facility] Comment on above: Result Comment: Sati sfactory for evaluation. Areas of partially obscuring inflammatory exudate are present. Performed at: WB Performed By: #### [id number] #### [facility] [address] [place] [address] Dr. Jihan Bryant MRI IACS WO W CONon 27-20 22 MRI IACS WO W CON EXAMINATION: [...] by: LESLI ALMAZAN Date: 2022-04-28 19:05 Normal [facility] CBC AUTO DIFFon 02-25-2022 BASO # 0.1 103/ul Normal 0.0-0.1 [facility] Comment on above: Performed By: #### C BC #### [facility] [address] [place] [address] Dr. Jihan Bryant Basophils/100 WBC (Bld) 0.6 % Normal 0.2-2.0 [facility] Comment on above: Performed By: #### C BC #### [facility] [address] [place] [address] Dr. Jihan Bryant EO # 0.1 103/ul Normal 0.0-0.7 [facility] Comment on above: Performed By: #### C BC #### [facility] [address] [place] [address] Dr. Jihan Bryant Eosinophils/100 WBC (Bld) 1.5 % Normal 0.9-7.0 [facility] Comment on above: Performed By: #### C BC #### [facility] [address] [place] [address] Dr. Jihan Bryant Erythrocyte distribution width (RBC) [Ratio] 13.4 % Normal 11.0-15.0 [facility] Comment on above: Performed By: #### C BC #### [facility] [address] [place] [address] Dr. Jihan Bryant Hematocrit (Bld) [Volume fraction] 46.9 % Normal 36.0-48.0 [facility] Comment on above: Performed By: #### C BC #### [facility] [address] [place] [address] Dr. Jihan Bryant Hemoglobin (Bld) [Mass/Vol] 15.5 g/dL Normal 12.0-16.0 [facility] Comment on above: Performed By: #### C BC #### [facility] [address] [place] [address] Dr. Jihan Bryant IG # 0.04 10e3/ul Critically high 0.00-0.03 [facility] Comment on above: Performed By: #### C BC #### [facility] [address] [place] [address] Dr. Jihan rByant IG % 0.5 % Normal 0.0-0.5 [facility] Comment on above: Performed By: #### C BC #### [facility] [address] [place] [address] Dr. Jihan Bryant LYMPH # 2.4 103/ul Normal 1.2-3.8 [facility] Comment on above: Performed By: #### C BC #### [facility] [address] [place] [address] Dr. Jihan Bryant Lymphocytes/100 WBC (Bld) 29.5 % Normal 20.5-60.0 [facility] Comment on above: Performed By: #### C BC #### [facility] [address] [place] [address] Dr. Jihan Bryant MANUAL DIFF REQ NO Normal [facility] Comment on above: Performed By: #### C BC #### [facility] [address] [place] [address] Dr. Jihan Bryant MCH (RBC) [Entitic mass] 31.3 pg Normal 26.7-34.0 [facility] Comment on above: Performed By: #### C BC #### [facility] [address] [place] [address] Dr. Jihan Bryant MCHC (RBC) [Mass/Vol] 33.0 g/dL Normal 29.9-35.2 [facility] Comment on above: Performed By: #### C BC #### [facility] [address] [place] [address] Dr. Jihan Bryant MCV (RBC) [Entitic vol] 94.7 fL Normal 81.0-99.0 [facility] Comment on above: Performed By: #### C BC #### [facility] [address] [address] [address] Jihan Bryant MONO # 0.6 103/ul Normal 0.3-0.8 [facility] Comment on above: Performed By: #### C BC #### [facility] [address] [place] [address] Dr. Jihan Bryant Monocytes/100 WBC (Bld) 7.7 % Normal 1.7-12.0 [facility] Comment on above: Performed By: #### C BC #### [facility] [address] [place] [address] Dr. Jihan Bryant NEUT # 5.0 103/ul Normal 1.4-6.5 [facility] Comment on above: Performed By: #### C BC #### [facility] [address] [place] [address] Dr. Jihan Bryant Neutrophils/100 WBC (Bld) 60.2 % Normal 43.0-75.0 [facility] Comment on above: Performed By: #### C BC #### [facility] [address] [place] [address] Dr. Jihan Bryant Platelet mean volume (Bld) [Entitic vol] 8.9 fL Critically low 9.5-13.5 [facility] Comment on above: Performed By: #### C BC #### [facility] [address] [place] [address] Dr. Jihan Bryant PLT 284 103/ul Normal 150-450 [facility] Comment on above: Performed By: #### C BC #### [facility] [address] [place] [address] Dr. Jihan Bryant RBC 4.95 106/ul Normal 4.20-5.40 [facility] Comment on above: Performed By: #### C BC #### [facility] [address] [place] [address] Dr. Jihan Bryant WBC 8.3 103/ul Normal 4.0-11.0 [facility] Comment on above: Performed By: #### C BC #### [facility] [address] [place] [address] Dr. Jihan Bryant GLYCOHEMOGLOBIN A1Con 2021 ADA RECOMMENDATION SEE BELOW Normal [facility] Comment on above: Result Comment: ADA RECOMMENDED LIMIT 4.0 - 6.0 ADA THERAPEUTIC TARGET < 7.0 ACTION SUGGESTED > 7.0 Performed By: #### A 1C #### [facility] [address] [address] [address] Jihan Bryant Glucose [Mass/Vol] 111 mg/dL Normal [facility] Comment on above: Performed By: #### A 1C #### [facility] [address] [address] [address] Jihan Bryant HbA1c (Bld) [Mass fraction] 5.5 % Normal 4.5-6.2 [facility] Comment on above: Performed By: #### A 1C #### [facility] [address] [place] [address] Dr. Jihan Bryant LIPID PROFILEon 02-25-2022 CHOL-HDL RATIO NORM SEE BELOW Normal [facility] Comment on above: Result Comment: 3.3 - 4.4 LOW RISK 4.4 - 7.1 AVERAGE RISK 7.1 - 11.0 MODERATE RISK >11.0 HIGH RISK Performed By: #### C MP, LIPID, TSH #### [facility] [address] [place] [address] Dr. Jihan Bryant Cholesterol [Mass/Vol] 229 mg/dL Critically high <=200 [facility] Comment on above: Performed By: #### C MP, LIPID, TSH #### [facility] [address] [place] [address] Dr. Jihan Bryant Cholesterol in HDL [Mass/Vol] 59 mg/dL Normal 40-60 [facility] Comment on above: Performed By: #### C MP, LIPID, TSH #### [facility] [address] [address] [address] Jihan Bryant Cholesterol in LDL [Mass/Vol] 149.4 mg/dL Normal [facility] Comment on above: Performed By: #### C MP, LIPID, TSH #### [facility] [address] [address] [address] Jihan Bryant Cholesterol.total/Cho lesterol in HDL [Mass ratio] 3.9 {ratio} Normal [facility] Comment on above: Performed By: #### C MP, LIPID, TSH #### [facility] [address] [address] [address] Jihan Bryant HDL NORMAL > or = 60 mg/dl - LO W CARDIOVASCULAR RISK <40 mg/dl - HIGH CARDIOVASCULAR RISK Normal [facility] Comment on above: Performed By: #### C MP, LIPID, TSH #### [facility] [address] [address] [address] Jihan Bryant LDL CALC NORMAL SEE BELOW Normal [facility] Comment on above: Result Comment: <100 mg/dl OPTIMAL 100 - 129 mg/dl NEAR OR ABOVE OPTIMAL 130 - 159 mg/dl BORDERLINE HIGH 160 - 189 mg/dl HIGH >190 mg/dl VERY HIGH Performed By: #### C MP, LIPID, TSH #### [facility] [address] [address] [address] Jihan Bryant Triglyceride [Mass/Vol] 103 mg/dL Normal <=150 [facility] Comment on above: Performed By: #### C MP, LIPID, TSH #### [facility] [address] [address] [address] Jihan Bryant VLDL CALC 20.6 mg/dL Normal [facility] Comment on above: Performed By: #### C MP, LIPID, TSH #### [facility] [address] [address] [address] Jihan Bryant PROF 14(COMP METB)on 022 Albumin [Mass/Vol] 3.9 g/dL Normal 3.4-5.0 [facility] Comment on above: Performed By: #### C MP, LIPID, TSH #### [facility] [address] [address] [address] Jihan Bryant Albumin/Globulin [Mass ratio] 1.2 {ratio} Normal [facility] Comment on above: Performed By: #### C MP, LIPID, TSH #### [facility] [address] [address] [address] Jihan Bryant ALP [Catalytic activity/Vol] 93 U/L Normal 46-116 [facility] Comment on above: Performed By: #### C MP, LIPID, TSH #### [facility] [address] [address] [address] Jihan Bryant ALT [Catalytic activity/Vol] 22 U/L Normal 14-59 [facility] Comment on above: Performed By: #### C MP, LIPID, TSH #### [facility] [address] [address] [address] Jihan Bryant Anion gap [Moles/Vol] 9.9 mmol/L Normal [facility] Comment on above: Performed By: #### C MP, LIPID, TSH #### [facility] [address] [address] [address] Jihan Bryant AST [Catalytic activity/Vol] 12 U/L Critically low 15-37 [facility] Comment on above: Performed By: #### C MP, LIPID, TSH #### [facility] [address] [address] [address] Jihan Bryant Bilirubin [Mass/Vol] 0.9 mg/dL Normal 0.2-1.0 [facility] Comment on above: Performed By: #### C MP, LIPID, TSH #### [facility] [address] [address] [address] Jihan Bryant Calcium [Mass/Vol] 9.1 mg/dL Normal 8.5-10.1 [facility] Comment on above: Performed By: #### C MP, LIPID, TSH #### [facility] [address] [address] [address] Jihan Bryant Chloride [Moles/Vol] 104 mmol/L Normal 98-107 [facility] Comment on above: Performed By: #### C MP, LIPID, TSH #### [facility] [address] [address] [address] Jihan Bryant CO2 [Moles/Vol] 30.4 mmol/L Normal 21.0-32.0 [facility] Comment on above: Performed By: #### C MP, LIPID, TSH #### [facility] [address] [address] [address] Jihan Bryant Creatinine [Mass/Vol] 0.71 mg/dL Normal 0.55-1.02 [facility] Comment on above: Performed By: #### C MP, LIPID, TSH #### [facility] [address] [place] [address] Dr. Jihan Bryant EGFR-AF PAPUA [place] >60 Normal >=60 [facility] Comment on above: Performed By: #### C MP, LIPID, TSH #### [facility] [address] [address] [address] Jihan Bryant EGFR-NON AF PAP[place] >60 Normal >=60 [facility] Comment on above: Performed By: #### C MP, LIPID, TSH #### [facility] [address] [place] [address] Dr. Jihan Bryant Globulin (S) [Mass/Vol] 3.2 g/dL Normal [facility] Comment on above: Performed By: #### C MP, LIPID, TSH #### [facility] [address] [place] [address] Dr. Jihan Bryant Glucose [Mass/Vol] 104 mg/dL Normal 74-106 [facility] Comment on above: Performed By: #### C MP, LIPID, TSH #### [facility] [address] [place] [address] Dr. Jihan Bryant Potassium [Moles/Vol] 4.3 mmol/L Normal 3.5-5.1 [facility] Comment on above: Performed By: #### C MP, LIPID, TSH #### [facility] [address] [place] [address] Dr. Jihan Bryant Protein [Mass/Vol] 7.1 g/dL Normal 6.4-8.2 [facility] Comment on above: Performed By: #### C MP, LIPID, TSH #### [facility] [address] [place] [address] Dr. Jihan Bryant Sodium [Moles/Vol] 140 mmol/L Normal 136-145 [facility] Comment on above: Performed By: #### C MP, LIPID, TSH #### [facility] [address] [place] [address] Dr. Jihan Bryant Urea nitrogen [Mass/Vol] 18.0 mg/dL Normal 7.0-18.0 [facility] Comment on above: Performed By: #### C MP, LIPID, TSH #### [facility] [address] [place], [place] [address] Dr. Jihan Bryant Urea nitrogen/Creatinine [Mass ratio] 25.4 mg/mg Normal [facility] Comment on above: Performed By: #### C MP, LIPID, TSH #### [facility] [address] [place], [place] [address] Dr. Jihan Bryant TSHon 02-25-2022 TSH 2.224 uIU/mL Normal 0.358-3.740 [facility] Comment on above: Performed By: #### C MP, LIPID, TSH #### [facility] [address] [place], [place] [address] Dr. Jihan Bryant Ambulatory Clinical Summaryo n 08-19-2020 Ambulatory Clinical Summary {[id number]}CD:[id number] Normal [facility] General Surgery Office/Clini c Noteon 08-19-2020 General Surgery Office/Clinic Note HPI Staff 3 week post operative visit following umbilical hernia repair at [facility]. Denies pain or complications. History of [...] Dilshad MARTELL MD Only if needed [address] [place] [address]- Additional Instructions: Problem List/Past Medical [...] type 2: Mother. Heart disease: Father. Normal [facility] Comment on above: Result Comment: Elec tronically Signed By: Dilshad MARTELL MD\.br\Date and Time Signed: 08/19/20 13:26 EST Consultation Noteon 08-11-19 21 Consultation Note [id number] .00CD:127 Normal [facility] RAD - MRI Reporton 1 RAD - MRI Report [id number] .00CD:127 Normal [facility] Ambulatory Clinical Summaryo n 08-05-2020 Ambulatory Clinical Summary {[id number]}CD:[id number] Normal [facility] General Surgery Office/Clini c Noteon 08-05-2020 [...] mellitus type 2: Mother. Heart disease: Father. [facility] Comment on above: Result Comment: Elec tronically Signed By: NIURKA PIERRE, Dilshad Banksbr\Date and Time Signed: 08/05/20 17:23 EST Operative Reporton 1 Operative Report [id number] .00CD:127 [facility] Operative Reporton 1 Operative Report [id number] .00CD:127 [facility] Ambulatory Clinical Summaryo n 07-21-2020 Ambulatory Clinical Summary {[id number]}CD:[id number] [facility] Patient Educationon 07-21-19 21 Patient Education [...] Document Reviewed: 07/27/2012 ExitCare? Patient Information ?2013 [employer]. [facility] Urology Office/Clinic Noteon 07-21-2020 Urology Office/Clinic Note Chief Complaint Pt is new and referred by Dr. Vasquez pt is having ureter stents put in on 07/29/2020. This patient is a 49-year-old female with a history of a left ovarian cyst and umbilical hernia. She is being scheduled for combined general surgery and [employer] surgery procedure. A request has been made [...] Urnls Dip Stick Auto w/o Microscopy POC [id number] I have reviewed the previous health record information and history for this pt. from Dr. Cummings. Follow-up With When Contact Information Tony Cummings Jr., MD [address] [place] [address]- Additional Instructions: Patient Education Urinary Tract Infection I, Deanna Lee , personally scribed for Dr. Cummings on [...] Protein Urine Dipstick: Trace (07/21/20 09:04:00) Specific [place] Urine Dipstick: >=1.030 (07/21/20 09:04:00) Urine Appearance Urine Dipstick: Clear (07/21/20 09:04:00) Urine Color Urine Dipstick: Dark yellow (07/21/20 09:04:00) Urobilinogen Urine Dipstick: Normal 0.2-1 EU/dl (07/21/20 09:04:00) pH Urine Dipstick: 5 (07/21/20 09:04:00) Diagnostic Results Urinalysis was reviewed. No evidence of infection was noted. [facility] Comment on above: Result Comment: Elec tronically Signed By: Emiliano Mcconnell MD, Tony Schaefer\.br\Date and Time Signed: 07/21/20 09:57 EST\.br\Electronically Co-Signed By: Deanna Lee MA\.br\Date and Time Co-Signed: 07/21/20 09:49 EST Consent for Procedure/Surger yon 07-08-2020 Consent for Procedure/Surgery [id number] .00CD:127 [facility] Ambulatory Clinical Summaryo 06-24-2020 Ambulatory Clinical Summary {[id number]}CD:[id number] [facility] Facesheeton 06-24-2020 Facesheet [id number]. 00CD:127 [facility] Provider Letter FTon 06-24 Provider Letter [facility] MICHELLE CARDOZA, [address] [place] [id number] Re: KIKA KUMAR Date of : 1970 Thank you for your referral of Kika Kumar who was seen on consultation on June 23, 2020, for umbilical hernia. A possible combined surgery is planned. I have enclosed my consultation notes for your review. I will be happy to follow Kika should her symptoms persist. Sincerely, Dilshad Martell MD General Surgery Normal [facility] General Surgery Office/Clini c Noteon 06-23-2020 [...] available Patient Education Exercise to Lose Weight, [id number] Problem List/Past Medical History Ongoing Allergic rhinitis, [...] Primary malignant neoplasm of colon: Father. Normal [facility] Comment on above: Result Comment: Elec tronically Signed By: NIURKA PIERRE, Dilshad Dahl\Date and Time Signed: 06/23/20 [...] 09/10/2012 Document Reviewed: 07/22/2011 ExitCare? Patient Information ?2013 [employer] [facility] Physician Referralon 020 Physician Referral [phone] [id number] [facility] Social History Date Type Detail Facility Start: 1970 Sex Assigned At Female F [facility] Sex Assigned At [employer] Other Evaluation note 11-29-2022 Note Date & Type Note Facility 11-29-2022 Evaluation note Encounter Date Diagnosis Assessment Notes October, Seasonal allergic rhinitis, unspecified trigger (ICD-10 - J30.2) [employer] [facility] [employer] Other Evaluation note 10-24-2022 Note Date & Type Note Facility 10-24-2022 Evaluation note Encounter Date Diagnosis Assessment Notes Oct, Dysuria (ICD-10 - R30.0) [employer] Other Evaluation note Note Date & Type Note Facility Evaluation note No assessment information availa [facility] Work Phone: Summary Purpose Family History No Family History Records FoundNo Family History Records FoundNo Family History Records Found Advance Directives Advance Directive Response Recorded Date/ Time Advance Directives No November 23 10:04am Chief Complaint and Reason for Visit Chief Complaint Allergy Shot Additional Source Comments INFORMATION SOURCE (unrecogn ized section and content) DATE CREATED AUTHOR 08/21/2020 Michel Trey [facility] DATE CREATED AUTHOR AUTHOR'S ORGANIZ ATION 11/04/2022 [facility] DATE CREATED AUTHOR AUTHOR'S ORGANIZ ATION 09/19/2023 [facility] EPIC REASON FOR VISIT (unrecogniz [...] BE BASED ON THE PRIMARY CLINICAL RECORDS. [employer] [facility]. provides no warranty or guarantee of the accuracy or completeness of information in this document.
[2023-11-29 09:05] LABS: Basophils Absolute Auto 0.1 10^3/uL (0.0-0.1); Basophils Percent Auto 0.7 % (0.2-2.0); Eosinophils Absolute Auto 0.1 10^3/uL (0.0-0.7); Eosinophils Percent Auto 1.3 % (0.9-7.0); Hematocrit 44.9 % (36.0-48.0); Hemoglobin 15.2 g/dL (12.0-16.0); Immature Granulocytes Abs Auto 0.03 10^3/uL (0.00-0.03); Immature Granulocytes Pct Auto 0.4 % (0.0-0.5); Lymphocytes Absolute Auto 2.8 10^3/uL (1.2-3.8); Lymphocytes Percent Auto 34.2 % (20.5-60.0); Mean Corpuscular HGB Conc 33.9 g/dL (29.9-35.2); Mean Corpuscular Hemoglobin 31.5 pg (26.7-34.0); Mean Corpuscular Volume 93.2 fL (81.0-99.0); Mean Platelet Volume 9.3 fL (9.5-13.5); Monocytes Absolute Auto 0.6 10^3/uL (0.3-0.8); Neutrophils Absolute Auto 4.6 10^3/uL (1.4-6.5); Neutrophils Percent Auto 56.4 % (43.0-75.0); Platelet Count 297 10^3/uL (150-450); Red Blood Count 4.82 10^6/uL (4.20-5.40); Red Cell Distribution Width 12.8 % (11.0-15.0); White Blood Count 8.2 10^3/uL (4.0-11.0)
[2023-11-29 09:19] LABS: Estimated Average Glucose 111 mg/dL; Glycohemoglobin A1C 5.5 % (4.5-6.2)
[2023-11-29 09:30] LABS: Alanine Aminotransferase 34 U/L (14-59); Albumin Globulin Ratio 1.2; Albumin Level 4.2 g/dL (3.4-5.0); Alkaline Phosphatase 130 U/L (46-116); Anion Gap 10.4; Aspartate Amino Transferase 19 U/L (15-37); Calcium 9.4 mg/dL (8.5-10.1); Carbon Dioxide 32.1 mmol/L (21.0-32.0); Chloride 100 mmol/L (98-107); Chol HDL Ratio 3.6; Cholesterol 259 mg/dL (<=200); Estimated GFR (African America >60 (>=60); Estimated GFR (Non-African Ame >60 (>=60); Globulin 3.6 g/dL; Glucose 101 mg/dL (74-106); HDL Cholesterol 72 mg/dL (40-60); Potassium 3.5 mmol/L (3.5-5.1); Sodium 139 mmol/L (136-145); Thyroid Stimulating Hormone 2.943 uIU/mL (0.358-3.740); Total Protein 7.8 g/dL (6.4-8.2); Triglycerides 119 mg/dL (<=150); VLDL CHOLESTEROL 23.8 mg/dL
== END 2023-11-29 08:19 | disposition home or self-care (01) ==
LOC: LAB 08:18
PROVIDERS: PCP Family Medicine; Visit Provider Family Medicine
DX: Z00.00 Encounter for general adult medical examination without abnormal findings (principal)
CPT/HCPCS: 36415; 80053; 80061; 83036; 84443; 85025

== ENCOUNTER 2024-07-08 09:44 | Outpatient (OUT) | payer BC, SELFPAY ==
[2024-07-08 10:32] LABS: Estimated Average Glucose 117 mg/dL; Glycohemoglobin A1C 5.7 % (4.5-6.2)
[2024-07-08 11:02] LABS: Free T3 2.34 pg/mL (2.18-3.98); Free T4 0.86 ng/dL (0.76-1.46); Glucose 98 mg/dL (74-106); Thyroid Stimulating Hormone 1.514 uIU/mL (0.358-3.740)
[2024-07-09 06:07] LABS: Sex Horm Binding Glob, Serum 52.1 nmol/L (17.3-125.0)
[2024-07-09 08:08] LABS: Estradiol 9.1 pg/mL (.); Insulin 10.4 uIU/mL (2.6-24.9); Progesterone 0.2 ng/mL (.); Thyroid Peroxidase (TPO) Ab 11 IU/mL (0-34)
[2024-07-09 14:08] LABS: Thyroglobulin Antibody <1.0 IU/mL (0.0-0.9)
[2024-07-09 19:12] LABS: Free Testosterone(Direct) 0.6 pg/mL (0.0-4.2); Testosterone 12 ng/dL (4-50)
[2024-07-10 12:07] LABS: Calcitriol(1,25 di-OH Vit D) 59.5 pg/mL (24.8-81.5)
[2024-07-10 14:08] LABS: Estrone, Serum 33 pg/mL (.)
[2024-07-10 21:08] LABS: Reverse T3, Serum 15.9 ng/dL (9.2-24.1)
[2024-07-11 09:13] LABS: Serotonin, Serum 86 ng/mL (31-207)
== END 2024-07-08 09:45 | disposition home or self-care (01) ==
LOC: LAB 09:47
PROVIDERS: PCP Family Medicine; Visit Provider Physician Assistant
DX: E34.9 Endocrine disorder, unspecified (principal)
CPT/HCPCS: 36415; 82530; 82627; 82652; 82670; 82679; 82728; 82947; 83036; 83525; 84144; 84260; 84270; 84402; 84403; 84432; 84436; 84439; 84443; 84481; 84482; 84681; 86376; 86800

== ENCOUNTER 2024-08-16 07:46 | Outpatient (OUT) | payer BC, SELFPAY ==
--- OUTSIDE RECORDS SUMMARY | 2024-08-16 07:50 | XMS_ITS | CCD ---
Author Organization [facility] Care Team Providers Care Teradata Solution Architect Name Role Phone Michelle Cardoza Unavailable NANI, DR MICHELLE Rosas Attending Unavailable CARDOZA, DR MICHELLE Rosas Consulting Unavailable CARDOZA, DR MICHELLE Rosas Primary Care Unavailable CARDOZA, DR MICHELLE Rosas Admitting Unavailable KARASIK ., DR ALVARENGA Admitting Unavailabl e CARDOZA, DR MICHELLE Rosas Primary Care Unavailable KARASIK ., DR ALVARENGA Attending Unavailabl e KARASIK ., DR ALVARENGA Consulting Unavailabl e NORAH, DR LESLI Cr Consulting Unavailable ZIEBER, DR [...] Unavailable WEST, DR LESLI Cr Consulting Unavailable Michelle Cardoza MD Primary Care Provider SHANNON CRUZ Attending Unavailable ANGELINA SALCEDO Attending Unavailable ANGELINA SALCEDO Attending Unavailable Allergies Allergy Classification Reported Allergen(s) Allergy Type Date of Onset Reaction(s) Facility Penicillins (antibiotic) (1 source) Penicillins Drug Allergy 3 P[facility]INS Comment:REACTIO N HAPPENED A CHILD [facility] Sulfonamides (antibiotic) (1 source) Sulfonamides (Antibiotic) Drug Allergy 3 [facility] (2 sources) Penicillin Drug Allergy Unknown [facility] Other (6 sources) Substance with sulfonamide structure and antibacterial mechanism of action (substance) Drug allergy 3 Unknown [facility] Other (1 source) Penicillins Drug allergy (disorder) 4 [facility] (1 source) Sulfonamides (Antibiotic) Drug allergy (disorder) 4 [facility] (4 sources) Penicillin G Drug Allergy 4 [facility] Work Phone: (4 sources) Penicillins Drug Allergy 3 [facility] Medications Current Medications Medication Drug Class(es) Dates Sig (Normalized) Sig (Original) Calcium (3 sources) Phosphate Binder, Calcium calcium 200 MG tablet Take by mouth Active cetirizine hydrochloride 10 mg oral tablet (3 sources) Histamine-1 Receptor Antagonist cetirizine (ZyrTEC) 10 MG tablet Take by mouth if needed for allergies Active ciprofloxacin 250 mg oral tablet (2 sources) Quinolone Antimicrobial Start: 10-24-2022 take 1 tablet by mouth every twelve hours Ciprofloxacin HCl 250 MG 1 tablet Orally every 12 hrs for 5 day(s) Oct, Active phentermine hydrochloride 37.5 mg oral tablet (6 sources) Sympathomimetic Amine Anorectic Start: 01-18-2024 End: 08-21-2024 take 1 tablet by mouth before mealtime phentermine (Adipex-P) 37.5 MG tablet Indications: Encounter for weight management Take 1 tablet (37.5 mg) by mouth in the morning. Take before meals. 90 tablet 05/23/2024 08/21/2024 Active semaglutide (Ozempic, 1 MG/DOSE,) 4 MG/3ML solution pen-injector (3 sources) Start: 07-28-2022 End: 05-23-2024 inject 1 mg by subcutaneous injection every week semaglutide (Ozempic, 1 MG/DOSE,) 4 MG/3ML solution pen-injector as directed Subcutaneous once a week for 28 days 07/28/2022 05/23/2024 Discontinued (Other) Start: 07-28-2022 inject 1 mg by subcu taneous injection every week semaglutide (Ozempic, 1 MG/DOSE,) 4 MG/3ML solution pen-injector as directed Subcutaneous once a week for 28 days 07/28/2022 Active Completed/Discontinued Medications Medication Drug Class(es) Dates Sig (Normalized) Sig (Original) triamcinolone acetonide 40 mg/ml injectable suspension (1 source) Corticosteroid Start: 11-29-2022 Kenalog-40 October, 60 mg Problems Problem Classification Problem Date Documented Da te Episodic/Chronic Administrative/social admission (4 sources) Patient encounter status; Translations: [Persons encountering health services in other specified circumstances] 05-23-2024 Episodic Genitourinary symptoms and ill-defined conditions (1 source) [...] HEAR LOSS BILATERAL] Onset: 04-28-2022 Chronic Other endocrine disorders (2 sources) Disorder of endocrine system; Translations: [Endocrine disorder, unspecified] 05-23-2024 Episodic Other screening for suspected conditions (not mental [...] Test Name Value Interpretation Reference Range Facility [facility] HEMOGLOBIN A1Con 025 Glucose [Mass/Vol] 117 mg/dL [facility] HbA1c (Bld) [Mass fraction] 5.7 % 4.5 - 6.2 % [facility] Comment on above: ADA RECOMMENDED LIMI T 4.0 - 6.0 ADA THERAPEUTIC TARGET < 7.0 ACTION SUGGESTED > 7.[address] [facility] XR DEXA BONE DENSITYon 10-28 XR DEXA [...] FILIPE MORAES Date: 2022-10-28 06:58 Normal [facility] MAMM SCREEN 3D FADIA CADon 10-27-2022 MG MAMM SCREEN 3D FADIA CAD Patient: KIKA KUMAR Exam Date: 10/27/2022 : 1970 Gender:F Ordering : DR LYLE VASQUEZ . Admission #: [id number] Family : Order #: [id number] CLICK HERE TO VIEW EXAM RADIOLOGY REPORT [...] colon cancer at age 61. LOCATION: [facility] BREAST COMPOSITION: Heterogeneously dense,which may obscure small [...] Almazan MD on 10/28/2022 at 07:42 Normal [facility] PAP ACOG PANEL 2: 30 to 65on 09-22-2022 . . Normal [facility] Comment on above: Result Comment: Perf ormed at: WB Performed By: #### [id number] #### [facility] [address] [place] [address] Dr. Jihan Bryant Age Gdln ACOG Testing 30-65 Normal [facility] Comment on above: Performed By: #### [id number] #### [facility] [address] [place] [address] Dr. Jihan Bryant DIAGNOSIS: Comment Normal [facility] Comment on above: Result Comment: NEGA TIVE FOR INTRAEPITHELIAL LESION OR MALIGNANCY. THIS SPECIMEN WAS RESCREENED PART OF OUR BACK END DEVELOPER PROGRAM. Performed at: WB Performed By: #### [id number] #### [facility] [address] [place] [address] Dr. Jihan Bryant HPV Aptima Negative Normal Negative [facility] Comment on above: Result Comment: This nucleic acid amplification test detects fourteen high-risk HPV types (16,18,31,33,35,39,45,51,52,56,58,59,66,68) without differentiation. Performed at: =G Performed By: #### [id number] #### [facility] [address] [place] [address] Dr. Jihan Bryant HPV Genotype Reflex Comment Normal [facility] Comment on above: Result Comment: Crit eria not met, HPV Genotype not performed. Performed at: WB Performed By: #### [id number] #### [facility] [address] [place] [address] Dr. Jihan Bryant Methodology: Comment Normal [facility] Comment on above: Result Comment: This liquid based ThinPrep(R) pap test was screened with the use of an image guided system. Performed at: WB Performed By: #### [id number] #### [facility] [address] [place] [address] Dr. Jihan Bryant Note: Comment Normal [facility] Comment on above: Result Comment: The Pap smear is a screening test designed to aid in the detection of premalignant and malignant conditions of the uterine cervix. It is not a diagnostic procedure and should not be used as the sole means of detecting cervical cancer. Both false-positive and false-negative reports do occur. . Performed at: WB Performed By: #### [id number] #### [facility] [address] [place] [address] Dr. Jihan Bryant Performed by: Comment Normal [facility] Comment on above: Result Comment: Hakan Anderson, Construction Accountant (ASCP) Performed at: WB Performed By: #### [id number] #### [facility] [address] [place] [address] Dr. Jihan Bryant QC reviewed by: Comment Normal [facility] Comment on above: Result Comment: Catracho Liang, Supervisory Construction Accountant (ASCP) Performed at: WB Performed By: #### [id number] #### [facility] [address] [place] [address] Dr. Jihan Bryant Specimen adequacy: Comment Normal [facility] Comment on above: Result Comment: Sati sfactory for evaluation. Areas of partially obscuring inflammatory exudate are present. Performed at: WB Performed By: #### [id number] #### [facility] [address] [place] [address] Dr. Jihan Bryant MRI IACS WO W CONon 10-27-20 22 MRI IACS WO W CON EXAMINATION: [...] LESLI ALMAZAN Date: 2022-04-28 19:05 Normal [facility] CBC AUTO DIFFon 02-25-2022 BASO # 0.1 103/ul Normal 0.0-0.1 [facility] Comment on above: Performed By: #### C BC #### [facility] [address] [address] [address] Jihan Bryant Basophils/100 WBC (Bld) 0.6 % Normal 0.2-2.0 [facility] Comment on above: Performed By: #### C BC #### [facility] [address] [address] [address] Jihan Bryant EO # 0.1 103/ul Normal 0.0-0.7 [facility] Comment on above: Performed By: #### C BC #### [facility] [address] [place] [address] Dr. Jihan Bryant Eosinophils/100 WBC (Bld) 1.5 % Normal 0.9-7.0 [facility] Comment on above: Performed By: #### C BC #### [facility] [address] [place] [address] Dr. Jihan Bryant Erythrocyte distribution width (RBC) [Ratio] 13.4 % Normal 11.0-15.0 [facility] Comment on above: Performed By: #### C BC #### [facility] [address] [place] [address] Dr. Jihan Bryant Hematocrit (Bld) [Volume fraction] 46.9 % Normal 36.0-48.0 [facility] Comment on above: Performed By: #### C BC #### [facility] [address] [address] [address] Jihan Bryant Hemoglobin (Bld) [Mass/Vol] 15.5 g/dL Normal 12.0-16.0 [facility] Comment on above: Performed By: #### C BC #### [facility] [address] [place] [address] Dr. Jihan Bryant IG # 0.04 10e3/ul Critically high 0.00-0.03 [facility] Comment on above: Performed By: #### C BC #### [facility] [address] [place] [address] Dr. Jihan Bryant IG % 0.5 % Normal 0.0-0.5 [facility] Comment on above: Performed By: #### C BC #### [facility] [address] [place] [address] Dr. Jihan Bryant LYMPH # 2.4 103/ul Normal 1.2-3.8 [facility] Comment on above: Performed By: #### C BC #### [facility] [address] [place] [address] Dr. Jihan Bryant Lymphocytes/100 WBC (Bld) 29.5 % Normal 20.5-60.0 [facility] Comment on above: Performed By: #### C BC #### [facility] [address] [place] [address] Dr. Jihan Bryant MANUAL DIFF REQ NO Normal [facility] Comment on above: Performed By: #### C BC #### [facility] [address] [place] [address] Dr. Jihan Bryant MCH (RBC) [Entitic mass] 31.3 pg Normal 26.7-34.0 [facility] Comment on above: Performed By: #### C BC #### [facility] [address] [place] [address] Dr. Jihan Bryant MCHC (RBC) [Mass/Vol] 33.0 g/dL Normal 29.9-35.2 [facility] Comment on above: Performed By: #### C BC #### [facility] [address] [place] [address] Dr. Jihan Bryant MCV (RBC) [Entitic vol] 94.7 fL Normal 81.0-99.0 [facility] Comment on above: Performed By: #### C BC #### [facility] [address] [place] [address] Dr. Jihan Bryant MONO # 0.6 103/ul Normal 0.3-0.8 [facility] Comment on above: Performed By: #### C BC #### [facility] [address] [place] [address] Dr. Jihan Bryant Monocytes/100 WBC (Bld) 7.7 % Normal 1.7-12.0 [facility] Comment on above: Performed By: #### C BC #### [facility] [address] [address] [address] Jihan Bryant NEUT # 5.0 103/ul Normal 1.4-6.5 [facility] Comment on above: Performed By: #### C BC #### [facility] [address] [place] [address] Dr. Jihan Bryant Neutrophils/100 WBC (Bld) 60.2 % Normal 43.0-75.0 [facility] Comment on above: Performed By: #### C BC #### [facility] [address] [place] [address] Dr. Jihan Bryant Platelet mean volume (Bld) [Entitic vol] 8.9 fL Critically low 9.5-13.5 [facility] Comment on above: Performed By: #### C BC #### [facility] [address] [place] [address] Dr. Jihan Bryant PLT 284 103/ul Normal 150-450 [facility] Comment on above: Performed By: #### C BC #### [facility] [address] [place] [address] Dr. Jihan Bryant RBC 4.95 106/ul Normal 4.20-5.40 [facility] Comment on above: Performed By: #### C BC #### [facility] [address] [place] [address] Dr. Jihan Bryant WBC 8.3 103/ul Normal 4.0-11.0 [facility] Comment on above: Performed By: #### C BC #### [facility] [address] [place] [address] Dr. Jihan Bryant GLYCOHEMOGLOBIN A1Con 2021 ADA RECOMMENDATION SEE BELOW Normal [facility] Comment on above: Result Comment: ADA RECOMMENDED LIMIT 4.0 - 6.0 ADA THERAPEUTIC TARGET < 7.0 ACTION SUGGESTED > 7.0 Performed By: #### A 1C #### [facility] [address] [address] [address] Jihan Bryant Glucose [Mass/Vol] 111 mg/dL Normal [facility] Comment on above: Performed By: #### A 1C #### [facility] [address] [address] [address] Jihan Bryant HbA1c (Bld) [Mass fraction] 5.5 % Normal 4.5-6.2 [facility] Comment on above: Performed By: #### A 1C #### [facility] [address] [address] [address] Jihan Bryant LIPID PROFILEon 02-25-2022 CHOL-HDL RATIO NORM SEE BELOW Normal [facility] Comment on above: Result Comment: 3.3 - 4.4 LOW RISK 4.4 - 7.1 AVERAGE RISK 7.1 - 11.0 MODERATE RISK >11.0 HIGH RISK Performed By: #### C MP, LIPID, TSH #### [facility] [address] [place] [address] Dr. Jihan Bryant Cholesterol [Mass/Vol] 229 mg/dL Critically high <=200 [facility] Comment on above: Performed By: #### C MP, LIPID, TSH #### [facility] [address] [place] [address] Dr. Jihan Bryant Cholesterol in HDL [Mass/Vol] 59 mg/dL Normal 40-60 [facility] Comment on above: Performed By: #### C MP, LIPID, TSH #### [facility] [address] [address] [address] Jihan Bryant Cholesterol in LDL [Mass/Vol] 149.4 mg/dL Normal [facility] Comment on above: Performed By: #### C MP, LIPID, TSH #### [facility] [address] [place] [address] Dr. Jihan Bryant Cholesterol.total/Ch olesterol in HDL [Mass ratio] 3.9 {ratio} Normal [facility] Comment on above: Performed By: #### C MP, LIPID, TSH #### [facility] [address] [place] [address] Dr. Jihan Bryant HDL NORMAL > or = 60 mg/dl - LO W CARDIOVASCULAR RISK <40 mg/dl - HIGH CARDIOVASCULAR RISK Normal [facility] Comment on above: Performed By: #### C MP, LIPID, TSH #### [facility] [address] [address] [address] Jihan Bryant LDL CALC NORMAL SEE BELOW Normal [facility] Comment on above: Result Comment: <100 mg/dl OPTIMAL 100 - 129 mg/dl NEAR OR ABOVE OPTIMAL 130 - 159 mg/dl BORDERLINE HIGH 160 - 189 mg/dl HIGH >190 mg/dl VERY HIGH Performed By: #### C MP, LIPID, TSH #### [facility] [address] [address] [address] Jihan Bryant Triglyceride [Mass/Vol] 103 mg/dL Normal <=150 [facility] Comment on above: Performed By: #### C MP, LIPID, TSH #### [facility] [address] [place] [address] Dr. Jihan Bryant VLDL CALC 20.6 mg/dL Normal [facility] Comment on above: Performed By: #### C MP, LIPID, TSH #### [facility] [address] [address] [address] Jihan Bryant PROF 14(COMP METB)on 022 Albumin [Mass/Vol] 3.9 g/dL Normal 3.4-5.0 [facility] Comment on above: Performed By: #### C MP, LIPID, TSH #### [facility] [address] [place] [address] Dr. Jihan Bryant Albumin/Globulin [Mass ratio] 1.2 {ratio} Normal [facility] Comment on above: Performed By: #### C MP, LIPID, TSH #### [facility] [address] [place] [address] Dr. Jihan Bryant ALP [Catalytic activity/Vol] 93 U/L Normal 46-116 [facility] Comment on above: Performed By: #### C MP, LIPID, TSH #### [facility] [address] [address] [address] Jihan Bryant ALT [Catalytic activity/Vol] 22 U/L Normal 14-59 [facility] Comment on above: Performed By: #### C MP, LIPID, TSH #### [facility] [address] [place] [address] Dr. Jihan Bryant Anion gap [Moles/Vol] 9.9 mmol/L Normal [facility] Comment on above: Performed By: #### C MP, LIPID, TSH #### [facility] [address] [place] [address] Dr. Jihan Bryant AST [Catalytic activity/Vol] 12 U/L Critically low 15-37 [facility] Comment on above: Performed By: #### C MP, LIPID, TSH #### [facility] [address] [place] [address] Dr. Jihan Bryant Bilirubin [Mass/Vol] 0.9 mg/dL Normal 0.2-1.0 [facility] Comment on above: Performed By: #### C MP, LIPID, TSH #### [facility] [address] [place] [address] Dr. Jihan Bryant Calcium [Mass/Vol] 9.1 mg/dL Normal 8.5-10.1 [facility] Comment on above: Performed By: #### C MP, LIPID, TSH #### [facility] [address] [place] [address] Dr. Jihan Bryant Chloride [Moles/Vol] 104 mmol/L Normal 98-107 [facility] Comment on above: Performed By: #### C MP, LIPID, TSH #### [facility] [address] [place] [address] Dr. Jihan Bryant CO2 [Moles/Vol] 30.4 mmol/L Normal 21.0-32.0 [facility] Comment on above: Performed By: #### C MP, LIPID, TSH #### [facility] [address] [place] [address] Dr. Jihan Bryant Creatinine [Mass/Vol] 0.71 mg/dL Normal 0.55-1.02 [facility] Comment on above: Performed By: #### C MP, LIPID, TSH #### [facility] [address] [address] [address] Jihan Bryant EGFR-AF [place] ISLANDER >60 Normal >=60 [facility] Comment on above: Performed By: #### C MP, LIPID, TSH #### [facility] [address] [address] [address] Jihan Bryant EGFR-NON AF [place]ER >60 Normal >=60 [facility] Comment on above: Performed By: #### C MP, LIPID, TSH #### [facility] [address] [address] [address] Jihan Bryant Globulin (S) [Mass/Vol] 3.2 g/dL Normal [facility] Comment on above: Performed By: #### C MP, LIPID, TSH #### [facility] [address] [place] [address] Dr. Jihan Bryant Glucose [Mass/Vol] 104 mg/dL Normal 74-[address] [facility] Comment on above: Performed By: #### C MP, LIPID, TSH #### [facility] [address] [place] [address] Dr. Jihan Bryant Potassium [Moles/Vol] 4.3 mmol/L Normal 3.5-5.1 [facility] Comment on above: Performed By: #### C MP, LIPID, TSH #### [facility] [address] [place] [address] Dr. Jihan Bryant Protein [Mass/Vol] 7.1 g/dL Normal 6.4-8.[address] [facility] Comment on above: Performed By: #### C MP, LIPID, TSH #### [facility] [address] [place] [address] Dr. Jihan Bryant Sodium [Moles/Vol] 140 mmol/L Normal 136-[address] [facility] Comment on above: Performed By: #### C MP, LIPID, TSH #### [facility] [address] [place] [address] Dr. Jihan Bryant Urea nitrogen [Mass/Vol] 18.0 mg/dL Normal 7.0-18.0 [facility] Comment on above: Performed By: #### C MP, LIPID, TSH #### [facility] [address] [place], [place] [address] Dr. Jihan Bryant Urea nitrogen/Creatinine [Mass ratio] 25.4 mg/mg Normal [facility] Comment on above: Performed By: #### C MP, LIPID, TSH #### [facility] [address] [place], [place] [address] Dr. Jihan Bryant TSHon 02-25-2022 TSH 2.224 uIU/mL Normal 0.358-3.740 [facility] Comment on above: Performed By: #### C MP, LIPID, TSH #### [facility] [address] [place], [place] [address] Dr. Jihan Bryant Ambulatory Clinical Summaryo n 08-19-2020 Ambulatory Clinical Summary {[id number]}CD:[id number] Normal [facility] General Surgery Office/Clini c Noteon 08-19-2020 General Surgery Office/Clinic Note HPI Staff 3 week post operative visit following umbilical hernia repair at [facility]. Denies pain or complications. History of Present [...] with problems/questions. Follow-up With When Contact Information NIURKA PIERRE, Dilshad Chavez Only if needed [address] [place] [address]- Additional Instructions: Problem List/Past Medical [...] type 2: Mother. Heart disease: Father. Normal [facility] Comment on above: Result Comment: Elec tronically Signed By: Dilshad MARTELL MD\.br\Date and Time Signed: 08/19/20 13:26 EST Consultation Noteon 08-11-19 21 Consultation Note [id number] .00CD:127 [facility] RAD - MRI Reporton RAD - MRI Report [id number] .00CD:127 [facility] Ambulatory Clinical Summaryo n 08-05-2020 Ambulatory Clinical Summary {[id number]}CD:[id number] Normal [facility] General Surgery Office/Clini c Noteon 08-05-2020 [...] mellitus type 2: Mother. Heart disease: Father. [facility] Comment on above: Result Comment: Elec tronically Signed By: NIURKA PIERRE, Dilshad Dahl\Date and Time Signed: 08/05/20 17:23 EST Operative Reporton 1 Operative Report [id number] .00CD:127 [facility] Operative Reporton 1 Operative Report [id number] .00CD:127 [facility] Ambulatory Clinical Summaryo n 07-21-2020 Ambulatory Clinical Summary {[id number]}CD:[id number] [facility] Patient Educationon 07-21-19 21 Patient Education Urinary [...] Document Reviewed: 07/27/2012 ExitCare? Patient Information ?2013 official.fm. [facility] Urology Office/Clinic Noteon 07-21-2020 Urology Office/Clinic Note Chief Complaint Pt is new and referred by Dr. Vasquez pt is having ureter stents put in on 07/29/2020. This patient is a 49-year-old female with a history of a left ovarian cyst and umbilical hernia. 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 A request has been made [...] Urnls Dip Stick Auto w/o Microscopy POC [id number] I have reviewed the previous health record information and history for this pt. from Dr. Cummings. Follow-up With When Contact Information Tony Cummings Jr., MD [address] [place] [address]- Additional Instructions: Patient Education Urinary Tract Infection [...] Protein Urine Dipstick: Trace (07/21/20 09:04:00) Specific [place] Urine Dipstick: >=1.030 (07/21/20 09:04:00) Urine Appearance Urine Dipstick: Clear (07/21/20 09:04:00) Urine Color Urine Dipstick: Dark yellow (07/21/20 09:04:00) Urobilinogen Urine Dipstick: Normal 0.2-1 EU/dl (07/21/20 09:04:00) pH Urine Dipstick: 5 (07/21/20 09:04:00) Diagnostic Results Urinalysis was reviewed. No evidence of infection was noted. Normal [facility] Comment on above: Result Comment: Elec tronically Signed By: Emiliano Mcconnell MD, Tony Schaefer\.br\Date and Time Signed: 07/21/20 09:57 EST\.br\Electronically Co-Signed By: Deanna Lee MA\.br\Date and Time Co-Signed: 07/21/20 09:49 EST Consent for Procedure/Surger yon 07-08-2020 Consent for Procedure/Surgery [id number] .00CD:127 Normal [facility] Ambulatory Clinical Summaryo n 06-24-2020 Ambulatory Clinical Summary {[id number]}CD:220342 [facility] Facesheeton 06-24-2020 Facesheet [id number]. 00CD:127 Normal [facility] Provider Letter FTon 06-24 Provider Letter [facility] MICHELLE CARDOZA, [address] [place] [address] Re: KIKA KUMAR Date of : 1970 Thank you for your referral of Kika Kumar who was seen on consultation on June 23, 2020, for umbilical hernia. A possible combined surgery is planned. I have enclosed my consultation notes for your review. I will be happy to follow Kika should her symptoms persist. Sincerely, Dilshad Martell MD General Surgery [facility] General Surgery Office/Clini c Noteon 06-23-2020 [...] available Patient Education Exercise to Lose Weight, Szbd-oh-Kxic Problem List/Past Medical History Ongoing Allergic rhinitis, [...] Primary malignant neoplasm of colon: Father. [facility] Comment on above: Result Comment: Elec tronically Signed By: NIURKA PIERRE, Dilshad Mccracken.julieth\Date and Time Signed: 06/23/20 16:50 EST Patient Educationon 06-23-20 Patient Education Exercise to Lose Weight Exercise [...] Document Reviewed: 07/22/2011 ExitCare? Patient Information ?2013 [facility] [employer] [facility] Physician Referralon 020 Physician Referral [phone] [id number] [id number]:[id number] [facility] Vital Signs Date Time Vital Sign Value Performing Clinician Radames delgado 05-23-2024 08:37-0500 Body mass index (BMI) [Ratio] 29.99 kg/m2 Angelina ARNOLD Work Phone: [facility] 05-23-2024 08:37-0500 Body weight 84.28 kg Angelina ARNOLD Work Phone: [facility] 05-23-2024 08:37-0500 Diastolic blood pressure 76 mm[Hg] Angelina ARNOLD Work Phone: [facility] 05-23-2024 08:37-0500 Systolic blood pressure 114 mm[Hg] Angelina ARNOLD Work Phone: [facility] Encounters Encounter Date Encounter Type Care Provider Facility Start: 07-08-2024 End: 07-08-2024 Clinisync Result Encounter Angelina ARNOLD Work Phone: [facility] External Department Unsolicited Start: 07-08-2024 End: 07-08-2024 Clinisync Result Encounter Angelina Salcedo CLAYTON Work Phone: [facility] External Department Unsolicited Start: 05-23-2024 End: 05-23-2024 Bamboo flowsheet Angelina Salcedo PA Work Phone: [facility] Start: 05-23-2024 End: 05-23-2024 Bamboo flowsheet Angelina ARNOLD Work Phone: [facility] Start: 05-23-2024 End: 05-23-2024 Office outpatient visit 15 minutes Angelina ARNOLD Work Phone: [facility] Comment on above: Encounter for weight management; Follow-up exam; Hormone disorder Start: 05-23-2024 End: 05-23-2024 ambulatory ANGELINA SALCEDO Not Available Start: 01-18-2024 End: 01-18-2024 ambulatory ANGELINA SALCEDO Not Available Start: 11-24-2023 End: 11-24-2023 ambulatory [facility] Work Phone: Start: 11-24-2023 End: 11-24-2023 Patient encounter procedure [facility] Work Phone: Start: 09-18-2023 End: 09-18-2023 ambulatory SHANNON CRUZ Not Available Start: 11-29-2022 End: 11-29-2022 ambulatory Michelle Cardoza Other [facility] Other Start: 11-29-2022 Nursing evaluation o f patient and report Michelle Cardoza [facility] Start: 10-27-2022 End: 10-28-[address] LYLE VASQUEZ . Facility:[facility] Start: 10-24-2022 End: 10-24-2022 ambulatory Michelle Cardoza Other [facility] Other Start: 10-24-2022 Nursing evaluation o f patient and report Michelle Cardoza [facility] Start: 09-13-2022 End: 09-13-[address] MICHELLE CARDOZA Facility:[facility] Start: 04-28-2022 End: 04-29-[address] MICHELLE CARDOZA Facility:[facility] Start: 02-28-2022 Encounter for genera l adult medical examination without abnormal findings DR MICHELLE CARDOZA [facility] Start: 02-25-2022 End: 02-26-[address] MICHELLE CARDOZA Facility:[facility] Start: 02-25-2022 End: 02-26-2022 Encounter for general adult medical examination without abnormal findings DR MICHELLE CARDOZA Facility:[facility] Procedures Date Procedure Procedure Detail Performing Clinician Start: 07-08-2024 MLR HEMOGLOBIN A1C Angelina ARNOLD Work Phone: Start: 11-29-2023 Mammography Angelina ARNOLD Work Phone: Start: 09-13-2022 Microscopic observat ion [Identifier] in Cervix by Cyto stain Angelina ARNOLD Work Phone: Plan of Treatment Date Care Activity Detail Author Start: 09-09-2026 Screening for malign ant neoplasm of cervix [facility] Start: 09-13-2025 Screening for malign ant neoplasm of cervix Pap Smear [facility] Start: 11-28-2024 Screening for malign ant neoplasm of breast Mammogram [facility] Start: 09-23-2024 End: 09-23-2024 Patient encounter procedure 09/23/2024 1:00 PM EDT Office Visit [facility] [address] [place] [address] Shannon Cruz DO [address] [place] [address] [facility] Start: 05-23-2024 End: 05-23-2025 C-peptide C-peptide Lab Routine Hormone disorder Expected: 05/23/2024, Expires: 05/23/2025 [facility] Comment on above: Expected: 05/23/2024 , Expires: 05/23/2025 Start: 05-23-2024 End: 05-23-2025 Cortisol free Cortisol, free Lab Routine Hormone disorder Expected: 05/23/2024, Expires: 05/23/2025 [facility] Comment on above: Expected: 05/23/2024 , Expires: 05/23/2025 Start: 05-23-2024 End: 05-23-2025 DHEA-sulfate DHEA-sulfate Lab Routine Hormone disorder Expected: 05/23/2024 (Approximate), Expires: 05/23/2025 [facility] Comment on above: Expected: 05/23/2024 (Approximate), Expires: 05/23/2025 Start: 05-23-2024 End: 05-23-2025 Estradiol Estradiol Lab Routine Hormone disorder Expected: 05/23/2024 (Approximate), Expires: 05/23/2025 [facility] Work Phone: Comment on above: Expected: 05/23/2024 (Approximate), Expires: 05/23/2025 Start: 05-23-2024 End: 05-23-2025 Estrone Estrone Lab Routine Hormone disorder Expected: 05/23/2024 (Approximate), Expires: 05/23/2025 [facility] Comment on above: Expected: 05/23/2024 (Approximate), Expires: 05/23/2025 Start: 05-23-2024 End: 05-23-2025 Ferritin [Mass/volume] in Serum or Plasma Ferritin Lab Routine Hormone disorder Expected: 05/23/2024 (Approximate), Expires: 05/23/2025 [facility] Comment on above: Expected: 05/23/2024 (Approximate), Expires: 05/23/2025 Start: 05-23-2024 End: 05-23-2025 Glucose [Mass/volume] in Serum or Plasma Glucose, random Lab Routine Hormone disorder Expected: 05/23/2024, Expires: 05/23/2025 [facility] Comment on above: Expected: 05/23/2024 , Expires: 05/23/2025 Start: 05-23-2024 End: 05-23-2025 Hemoglobin A1c/Hemoglobin.total in Blood Hemoglobin A1c Lab Routine Hormone disorder Expected: 05/23/2024 (Approximate), Expires: 05/23/2025 [facility] Comment on above: Expected: 05/23/2024 (Approximate), Expires: 05/23/2025 Start: 05-23-2024 End: 05-23-2025 Insulin, total Insulin, total Lab Routine Hormone disorder Expected: 05/23/2024, Expires: 05/23/2025 [facility] Comment on above: Expected: 05/23/2024 , Expires: 05/23/2025 Start: 05-23-2024 End: 05-23-2025 Progesterone Progesterone Lab Routine Hormone disorder Expected: 05/23/2024 (Approximate), Expires: 05/23/2025 [facility] Comment on above: Expected: 05/23/2024 (Approximate), Expires: 05/23/2025 Start: 05-23-2024 End: 05-23-2025 Serotonin serum Serotonin serum Lab Routine Hormone disorder Expected: 05/23/2024, Expires: 05/23/2025 [facility] Comment on above: Expected: 05/23/2024 , Expires: 05/23/2025 Start: 05-23-2024 End: 05-23-2025 Sex hormone binding globulin Sex hormone binding globulin Lab Routine Hormone disorder Expected: 05/23/2024 (Approximate), Expires: 05/23/2025 [facility] Comment on above: Expected: 05/23/2024 (Approximate), Expires: 05/23/2025 Start: 05-23-2024 End: 05-23-2025 T3, reverse T3, reverse Lab Routine Hormone disorder Expected: 05/23/2024 (Approximate), Expires: 05/23/2025 [facility] Comment on above: Expected: 05/23/2024 (Approximate), Expires: 05/23/2025 Start: 05-23-2024 End: 05-23-2025 TESTOSTERONE, FREE TESTOSTERONE, FREE Lab Routine Hormone disorder Expected: 05/23/2024 (Approximate), Expires: 05/23/2025 [facility] Comment on above: Expected: 05/23/2024 (Approximate), Expires: 05/23/2025 Start: 05-23-2024 End: 05-23-2025 Testosterone, free, total Testosterone, free, total Lab Routine Hormone disorder Expected: 05/23/2024 (Approximate), Expires: 05/23/2025 [facility] Comment on above: Expected: 05/23/2024 (Approximate), Expires: 05/23/2025 Start: 05-23-2024 End: 05-23-2025 Thyroglobulin Thyroglobulin Lab Routine Hormone disorder Expected: 05/23/2024, Expires: 05/23/2025 [facility] Comment on above: Expected: 05/23/2024 , Expires: 05/23/2025 Start: 05-23-2024 End: 05-23-2025 Thyroglobulin Antibody Thyroglobulin Antibody Lab Routine Hormone disorder Expected: 05/23/2024, Expires: 05/23/2025 [facility] Comment on above: Expected: 05/23/2024 , Expires: 05/23/2025 Start: 05-23-2024 End: 05-23-2025 Thyroid peroxidase antibody Thyroid peroxidase antibody Lab Routine Hormone disorder Expected: 05/23/2024 (Approximate), Expires: 05/23/2025 [facility] Comment on above: Expected: 05/23/2024 (Approximate), Expires: 05/23/2025 Start: 05-23-2024 End: 05-23-2025 Thyrotropin [Units/volume] in Serum or Plasma [facility] Comment on above: Expected: 05/23/2024 (Approximate), Expires: 05/23/2025 Expected: 05/23/2024 , Expires: 05/23/2025 Start: 05-23-2024 End: 05-23-2025 Thyroxine (T4) free [Mass/volume] in Serum or Plasma T4, free Lab Routine Hormone disorder Expected: 05/23/2024 (Approximate), Expires: 05/23/2025 [facility] Comment on above: Expected: 05/23/2024 (Approximate), Expires: 05/23/2025 Start: 05-23-2024 End: 05-23-2025 Triiodothyronine (T3) Free [Mass/volume] in Serum or Plasma T3, free Lab Routine Hormone disorder Expected: 05/23/2024 (Approximate), Expires: 05/23/2025 [facility] Comment on above: Expected: 05/23/2024 (Approximate), Expires: 05/23/2025 Start: 05-23-2024 End: 05-23-2025 Vitamin D 1,25 dihydroxy Vitamin D 1,25 dihydroxy Lab Routine Hormone disorder Expected: 05/23/2024 (Approximate), Expires: 05/23/2025 [facility] Comment on above: Expected: 05/23/2024 (Approximate), Expires: 05/23/2025 Start: 05-23-2024 End: 05-23-2024 Patient encounter procedure 05/23/2024 8:30 AM EST Office Visit [facility] [address] [place] [address] Angelina Salcedo PA [address] [place] [address] Arrived [facility] Comment on above: Arrived Start: 03-03-2024 Influenza vaccination Influenza Vacc ine (#1) [facility] Start: 1970 Screening for malign ant neoplasm of colon [facility] Immunizations Immunization Date Immunization Notes Care Provider Fa cility 04-04-2019 influenza virus vacc ine, unspecified formulation Angelina ARNOLD Work Phone: [facility] Payers Date Payer Category Payer [facility] BCBS [id number] 2022 [facility] [id number] 2019 Unknown [id number] 1971 Unknown [id number] 1971 Unknown [id number] 1971 Unknown [id number] 1971 Unknown [id number] 1971 Unknown [id number] 1971 Unknown [id number] 1971 Unknown [id number] Social History Date Type Detail Facility Start: 08-29-2023 Sex Assigned At N [employer] Other Start: 1970 Sex Assigned At Female F [facility] Start: 08-29-2023 Tobacco smoking stat [facility] Never smoked tobacco [facility] Start: 01-18-2024 Alcoholic beverage intake Current drinker of alcohol (finding) [facility] Start: 08-29-2023 History of Social function [facility] Start: 1970 Sex assigned at Not on file [facility] History of Present illness Narrative 05-23-2024 CLAYTON Case - 05/23/2024 8:30 AM EST Note Date & Type Note Facility 05-23-2024 History of Presen t illness Narrative Reason for Appointment: Patient ID: Kika Vidales is a 53 y.o. female who presents for Weight Management and Follow-up Patient presents today for Weight Management Consult. 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 SNHL (sensorineural hearing loss) Seasonal allergies Tinnitus HISTORY PAST MEDICAL HISTORY SOCIAL HISTORY Past Medical History: Diagnosis Date 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 salphingo-oophorectomy HYSTERECTOMY 2014 URETERAL STENT PLACEMENT 07/29/2020 REVIEW OF SYSTEMS Review of Systems: Review of Systems Constitutional: Negative. HENT: Negative. Eyes: Negative. Respiratory: Negative. Cardiovascular: Negative. Gastrointestinal: Negative. Genitourinary: Negative. Musculoskeletal: Negative. Skin: Negative. Neurological: Negative. All other systems reviewed and are negative. Hematological: Negative. Endocrine: Negative. Allergic/Immunologic: Negative. OBJECTIVE Objective: Physical Exam Constitutional: Appearance: Normal appearance. She is well-developed and normal weight. HENT: Head: Normocephalic. Cardiovascular: Rate and Rhythm: Normal rate and regular rhythm. Pulses: Normal pulses. Pulmonary: Effort: Pulmonary effort is normal. Breath sounds: Normal breath sounds. Abdominal: General: Bowel sounds are normal. There is no distension. Palpations: Abdomen is soft. Tenderness: There is no abdominal tenderness. There is no guarding or rebound. Musculoskeletal: General: No swelling. Normal range of motion. Right lower leg: No edema. Left lower leg: No edema. Neurological: General: No focal deficit present. Mental Status: She is alert and oriented to person, place, and time. Skin: General: Skin is warm and dry. Psychiatric: Mood and Affect: Mood normal. Behavior: Behavior normal. Thought Content: Thought content normal. Judgment: Judgment normal. Vitals and nursing note reviewed. Exam conducted with a suture polisher present. Vitals: Estimated body mass index is 29.99 kg/m as calculated from the following: Height as of 09/18/23: 5' 6 . Weight as of this encounter: 185 lb 12.8 oz. BP: 114/76 No LMP recorded. Patient has had a hysterectomy. ASSESSMENT & PLAN ICD-10-CM 1. Encounter for weight management Z76.89 2. Follow-up exam Z09 Patient presents for weight management. Patient given 90 day prescription for Adipex. Discussed patients symptoms and patient desires to have hormone labs drawn and fill out [facility] Packet to be returned to office for referral to [facility]. Patient aware of referral process and that everything will be sent out once all labs are reviewed & returned. Patient to return to clinic for annual appointment. Patient also wished to start back on semiglutide, pt took previously with good results Documented by Melinda Kilgore LPN on behalf of: [facility] Case documented in this encounter [facility] Evaluation note 11-29-2022 Note Date & Type Note Facility 11-29-2022 Evaluation note Encounter Date Diagnosis Assessment Notes October, Seasonal allergic rhinitis, unspecified trigger (ICD-10 - J30.2) [facility] Other Evaluation note 10-24-2022 Note Date & Type Note Facility 10-24-2022 Evaluation note Encounter Date Diagnosis Assessment Notes Oct, Dysuria (ICD-10 - R30.0) [facility] Other Evaluation note Note Date & Type Note Facility Evaluation note No assessment information availa [facility] Work Phone: Evaluation note Note Date & Type Note Facility Evaluation note Diagnosis Encounter for weight management Follow-up exam Unspecified follow-up examination Hormone disorder Unspecified endocrine disorder documented in this encounter [facility] Summary Purpose Family History No Family History Records FoundNo Family History Records FoundNo Family History Records Found Advance Directives Advance Directive Response Recorded Date/ Time Advance Directives No November 23 10:04am Chief Complaint and Reason for Visit Chief Complaint Allergy Shot Additional Source Comments INFORMATION SOURCE (unrecogn ized section and content) DATE CREATED AUTHOR 08/21/2020 [facility] DATE CREATED AUTHOR AUTHOR'S ORGANIZ ATION 11/04/2022 [facility] DATE CREATED AUTHOR AUTHOR'S ORGANIZ ATION 05/26/2024 [facility] EPIC REASON FOR VISIT (unrecogniz ed section and content) Reason Comments Weight Management Follow-up Care Teams (unrecognized sec tion and content) Team Status: Active Member Role Status Dates Michelle Cardoza MD Primary Care Provider Active Team Status: Inactive Member Role Status Dates Michelle Cadroza MD Primary Care Provide r, Attending Provider Active Start: November 24, 2023 End: November 24, 2023 [employer] Relationship Specialty Start Date End Date Michelle Cardoza MD [address] [place] [address] PCP - General Family Medicine 09/18/23 [employer] Relationship Specialty Start Date End Date Michelle Cardoza MD [address] [place] [address] PCP - General Family Medicine 09/18/23 Goals (unrecognized section and content) Goals may [...] BE BASED ON THE PRIMARY CLINICAL RECORDS. [facility] [employer] [facility]. provides no warranty or guarantee of the accuracy or completeness of information in this document.
[2024-08-16 08:39] LABS: Alanine Aminotransferase 20 U/L (14-59); Albumin Globulin Ratio 1.3; Alkaline Phosphatase 101 U/L (46-116); Anion Gap 13.2; Aspartate Amino Transferase 18 U/L (15-37); BUN Creatinine Ratio 14.5; Bilirubin Total 0.9 mg/dL (0.2-1.0); Carbon Dioxide 25.4 mmol/L (21.0-32.0); Chloride 106 mmol/L (98-107); Estimated GFR (African America >60 (>=60 mL/min/1.73m^2); Estimated GFR (Non-African Ame >60 (>=60 mL/min/1.73m^2); Globulin 3.1 g/dL; Glucose 97 mg/dL (74-106); Potassium 3.6 mmol/L (3.5-5.1); Sodium 141 mmol/L (136-145); Total Protein 7.1 g/dL (6.4-8.2)
== END 2024-08-16 07:47 | disposition home or self-care (01) ==
LOC: LAB 07:48
PROVIDERS: PCP Family Medicine; Visit Provider Physician Assistant
DX: Z79.899 Other long term (current) drug therapy (principal)
CPT/HCPCS: 36415; 80053

== ENCOUNTER 2024-09-30 20:50 | Outpatient (REF) | payer BC, OTHER, SELFPAY ==
--- OUTSIDE RECORDS SUMMARY | 2024-09-30 20:56 | XMS_ITS | CCD ---
Author Organization [facility] Care Team Providers Care Tmd Teacher Name Role Phone Michelle Cardoza Unavailable NANI, [...] 3 PENICILLINS Comment:REACTIO N HAPPENED A CHILD [facility] Sulfonamides (antibiotic) (1 source) Sulfonamides (Antibiotic) Drug Allergy 3 [facility] (2 sources) Penicillin Drug Allergy Unknown [facility] Other (10 sources) Substance with sulfonamide structure and antibacterial mechanism of action (substance) Drug allergy 3 Unknown [facility] Other (1 source) Penicillins Drug allergy (disorder) 4 [facility] (1 source) Sulfonamides (Antibiotic) Drug allergy (disorder) 4 [facility] (8 sources) Penicillin G Drug Allergy 4 [facility] Work Phone: (8 sources) Penicillins Drug Allergy 3 [facility] Medications Current Medications Medication Drug Class(es) Dates Sig (Normalized) Sig (Original) Calcium (7 sources) Phosphate Binder, Calcium calcium 200 MG tablet Take by mouth Active cetirizine hydrochloride 10 mg oral tablet (7 sources) Histamine-1 Receptor Antagonist cetirizine (ZyrTEC) 10 MG tablet Take by mouth if needed for allergies Active ciprofloxacin 250 mg oral tablet (2 sources) Quinolone Antimicrobial Start: 10-24-2022 take 1 tablet by mouth every twelve hours Ciprofloxacin HCl 250 MG 1 tablet Orally every 12 hrs for 5 day(s) Oct, Active phentermine hydrochloride 37.5 mg oral tablet (10 sources) Sympathomimetic Amine Anorectic Start: 01-18-2024 End: 08-21-2024 take 1 tablet by mouth before mealtime phentermine (Adipex-P) 37.5 MG tablet Indications: Encounter for weight management Take 1 tablet (37.5 mg) by mouth in the morning. Take before meals. 90 tablet 05/23/2024 Active semaglutide (Ozempic, 1 MG/DOSE,) 4 MG/3ML [...] conditions (not mental disorders or infectious disease) (12 sources) Encounter for screening mammogram for malignant [...] Test Name Value Interpretation Reference Range Facility Urinalysis macro (dipstick) panel (U)on 09-30-2024 Bilirubin, UA Positive Negative - 4(70) +++ mg/dL [facility] Comment on above: small Blood, UA Positive Negative - 50 Yair/mcL [facility] Comment on above: trace Clarity, UA Clear [facility] Color, UA Brenda [facility] Glucose, UA Negative Negative - 1999(110) ++++ mg/dL [facility] Interpretation and review of laboratory results Abnormal [facility] Ketones, UA Negative Negative - 160(16) ++++ mg/dL [facility] Leukocytes, UA Negative Negative - 500+++ William/mcL [facility] Nitrite, UA Negative Negative - Positive [facility] pH, UA 5.5 5 - 9 [facility] Protein, UA Positive Negative - 1999(20) ++++ mg/dL [facility] Comment on above: 30 Spec Grav, UA 1.03 1 - 1.03 [facility] Urobilinogen, UA 0.2 0.2 - 12 mg/dL [facility] CMP (CMP) (FOR REMOTE FH C USE)on 08-16-2024 Albumin [Mass/Vol] 4 g/dL 3.4 - 5.0 g/dL [facility] ALBUMIN GLOBULIN RATIO 1.3 [facility] ALP [Catalytic activity/Vol] 101 U/L 46 - 116 U/L [facility] ALT [Catalytic activity/Vol] 20 U/L 14 - 59 U/L [facility] Anion gap [Moles/Vol] 13.2 mmol/L [facility] AST [Catalytic activity/Vol] 18 U/L 15 - 37 U/L [facility] Bilirubin [Mass/Vol] 0.9 mg/dL 0.2 - 1 .0 mg/dL [facility] Calcium [Mass/Vol] 9 mg/dL 8.5 - 10. 1 mg/dL [facility] Chloride [Moles/Vol] 106 mmol/L 98 - 10 7 mmol/L [facility] CO2 [Moles/Vol] 25.4 mmol/L 21.0 - 32.0 mmol/L [facility] Creatinine [Mass/Vol] 0.83 mg/dL 0.55 - 1.02 mg/dL [facility] GFR/1.73 sq M.predicted CKD-EPI (S/P/Bld) [Vol rate/Area] >60 >=60 mL/min/1.73m 2 [facility] Globulin (S) [Mass/Vol] 3.1 g/dL [facility] Glucose [Mass/Vol] 97 mg/dL 74 - 106 mg/dL [facility] Potassium [Moles/Vol] 3.6 mmol/L 3.5 - 5.1 mmol/L [facility] Protein [Mass/Vol] 7.1 g/dL 6.4 - 8.2 g/dL [facility] Sodium [Moles/Vol] 141 mmol/L 136 - 145 mmol/L [facility] TBH EGFR-NON AF SWAZI >60 >=60 mL/min/1.73m 2 [facility] Urea nitrogen [Mass/Vol] 12 mg/dL 7.0 - 18.0 mg/dL [facility] Urea nitrogen/Creatinine [Mass ratio] 14.5 mg/mg [facility] MLR HEMOGLOBIN A1Con 025 Glucose [Mass/Vol] 117 mg/dL [facility] HbA1c (Bld) [Mass fraction] 5.7 % 4.5 - 6.2 % [facility] Comment on above: ADA RECOMMENDED LIMI T 4.0 - 6.0 ADA THERAPEUTIC TARGET < 7.0 ACTION SUGGESTED > 7.[address] [facility] Cytology Cervical or vaginal smear or scraping studyon 09-18-2023 [facility] XR DEXA BONE DENSITYon 10-28 XR DEXA [...] by: FILIPE MORAES Date: 2022-10-28 06:58 Normal [facility] MG MAMM SCREEN 3D FADIA CADon 10-27-2022 MG MAMM SCREEN 3D FADIA CAD Patient: KIKA KUMAR Exam Date: 10/27/2022 : 1970 Gender:F Ordering : DR LYLE VASQUEZ . Admission #: [id number] Family : Order #: [id number] CLICK HERE TO VIEW EXAM RADIOLOGY REPORT [...] colon cancer at age 61. LOCATION: [facility] BREAST COMPOSITION: Heterogeneously dense,which may obscure [...] Almazan MD on 10/28/2022 at 07:42 Normal [facility] PAP ACOG PANEL 2: 30 to 65on 09-22-2022 . . Normal [facility] Comment on above: Result Comment: Perf ormed at: WB Performed By: #### [id number] #### [facility] [address] [place] [address] Dr. Jihan Bryant Age Gdln ACOG Testing 30-65 Normal [facility] Comment on above: Performed By: #### [id number] #### [facility] [address] [place] [address] Dr. Jihan Bryant DIAGNOSIS: Comment Normal [facility] Comment on above: Result Comment: NEGA TIVE FOR INTRAEPITHELIAL LESION OR MALIGNANCY. THIS SPECIMEN WAS RESCREENED PART OF OUR VOICE INTERCEPT TECHNICIAN PROGRAM. Performed at: WB Performed By: #### [id number] #### [facility] [address] [place] [address] Dr. Jihan Bryant HPV Aptima Negative Normal Negative [facility] Comment on above: Result Comment: This nucleic acid amplification test detects fourteen high-risk HPV types (16,18,31,33,35,39,45,51,52,56,58,59,66,68) without differentiation. Performed at: =G Performed By: #### [id number] #### [facility] [address] [place] [address] Dr. Jihan Bryant HPV Genotype Reflex Comment Normal [facility] Comment on above: Result Comment: Crit eria not met, HPV Genotype not performed. Performed at: WB Performed By: #### [id number] #### [facility] [address] [place] [address] Dr. Jihan Bryant Methodology: Comment Normal [facility] Comment on above: Result Comment: This liquid based ThinPrep(R) pap test was screened with the use of an image guided system. Performed at: WB Performed By: #### [id number] #### [facility] [address] [place] [address] Dr. Jihan Bryant Note: Comment Normal [facility] Comment on above: Result Comment: The Pap smear is a screening test designed to aid in the detection of premalignant and malignant conditions of the uterine cervix. It is not a diagnostic procedure and should not be used as the sole means of detecting cervical cancer. Both false-positive and false-negative reports do occur. . Performed at: WB Performed By: #### [id number] #### [facility] [address] [place] [address] Dr. Jihan Bryant Performed by: Comment Normal [facility] Comment on above: Result Comment: Hakan Anderson, Crap Game Box Person (ASCP) Performed at: WB Performed By: #### [id number] #### [facility] [address] [place] [address] Dr. Jihan Bryant QC reviewed by: Comment Normal [facility] Comment on above: Result Comment: Catracho Liang, Supervisory Crap Game Box Person (ASCP) Performed at: WB Performed By: #### [id number] #### [facility] [address] [place] [address] Dr. Jihan Bryant Specimen adequacy: Comment Normal [facility] Comment on above: Result Comment: Sati sfactory for evaluation. Areas of partially obscuring inflammatory exudate are present. Performed at: WB Performed By: #### [id number] #### [facility] [address] [place] [address] Dr. Jihan Bryant MRI IACS WO W CONon 04-28-20 MRI IACS WO W CON EXAMINATION: MRI [...] LESLI ALMAZAN Date: 2022-04-28 19:05 Normal [facility] CBC AUTO DIFFon 02-25-2022 BASO # 0.1 103/ul Normal 0.0-0.1 [facility] Comment on above: Performed By: #### C BC #### [facility] [address] [place] [address] Dr. Jihan Bryant Basophils/100 WBC (Bld) 0.6 % Normal 0.2-2.0 [facility] Comment on above: Performed By: #### C BC #### [facility] [address] [place] [address] Dr. Jihan Bryant EO # 0.1 103/ul Normal 0.0-0.7 [facility] Comment on above: Performed By: #### C BC #### [facility] [address] [place] [address] Dr. Jihan Bryant Eosinophils/100 WBC (Bld) 1.5 % Normal 0.9-7.0 [facility] Comment on above: Performed By: #### C BC #### [facility] [address] [place] [address] Dr. Jihan Bryant Erythrocyte distribution width (RBC) [Ratio] 13.4 % Normal 11.0-15.0 [facility] Comment on above: Performed By: #### C BC #### [facility] [address] [place] [address] Dr. Jihan Bryant Hematocrit (Bld) [Volume fraction] 46.9 % Normal 36.0-48.0 [facility] Comment on above: Performed By: #### C BC #### [facility] [address] [place] [address] Dr. Jihan Bryant Hemoglobin (Bld) [Mass/Vol] 15.5 g/dL Normal 12.0-16.0 [facility] Comment on above: Performed By: #### C BC #### [facility] [address] [place] [address] Dr. Jihan Bryant IG # 0.04 10e3/ul Critically high 0.00-0.03 [facility] Comment on above: Performed By: #### C BC #### [facility] [address] [place] [address] Dr. Jihan Bryant IG % 0.5 % Normal 0.0-0.5 [facility] Comment on above: Performed By: #### C BC #### [facility] [address] [place] [address] Dr. Jihan Bryant LYMPH # 2.4 103/ul Normal 1.2-3.8 [facility] Comment on above: Performed By: #### C BC #### [facility] [address] [place] [address] Dr. Jihan Bryant Lymphocytes/100 WBC (Bld) 29.5 % Normal 20.5-60.0 [facility] Comment on above: Performed By: #### C BC #### [facility] [address] [place] [address] Dr. Jihan Bryant MANUAL DIFF REQ NO Normal [facility] Comment on above: Performed By: #### C BC #### [facility] [address] [place] [address] Dr. Jihan Bryant MCH (RBC) [Entitic mass] 31.3 pg Normal 26.7-34.0 [facility] Comment on above: Performed By: #### C BC #### [facility] [address] [address] [address] Jihan Bryant MCHC (RBC) [Mass/Vol] 33.0 g/dL Normal 29.9-35.2 [facility] Comment on above: Performed By: #### C BC #### [facility] [address] [place] [address] Dr. Jihan Bryant MCV (RBC) [Entitic vol] 94.7 fL Normal 81.0-99.0 [facility] Comment on above: Performed By: #### C BC #### [facility] [address] [place] [address] Dr. Jihan Bryant MONO # 0.6 103/ul Normal 0.3-0.8 [facility] Comment on above: Performed By: #### C BC #### [facility] [address] [place] [address] Dr. Jihan Bryant Monocytes/100 WBC (Bld) 7.7 % Normal 1.7-12.0 [facility] Comment on above: Performed By: #### C BC #### [facility] [address] [place] [address] Dr. Jihan Bryant NEUT # 5.0 103/ul Normal 1.4-6.5 [facility] Comment on above: Performed By: #### C BC #### [facility] [address] [place] [address] Dr. Jihan Bryant Neutrophils/100 WBC (Bld) 60.2 % Normal 43.0-75.0 [facility] Comment on above: Performed By: #### C BC #### [facility] [address] [place] [address] Dr. Jihan Bryant Platelet mean volume (Bld) [Entitic vol] 8.9 fL Critically low 9.5-13.5 [facility] Comment on above: Performed By: #### C BC #### [facility] [address] [place] [address] Dr. Jihan Bryant PLT 284 103/ul Normal 150-450 [facility] Comment on above: Performed By: #### C BC #### [facility] [address] [address] [address] Jihan Bryant RBC 4.95 106/ul Normal 4.20-5.40 [facility] Comment on above: Performed By: #### C BC #### [facility] [address] [place] [address] Dr. Jihan Bryant WBC 8.3 103/ul Normal 4.0-11.0 [facility] Comment on above: Performed By: #### C BC #### [facility] [address] [place] [address] Dr. Jihan Bryant GLYCOHEMOGLOBIN A1Con 2021 ADA RECOMMENDATION SEE BELOW Normal [facility] Comment on above: Result Comment: ADA RECOMMENDED LIMIT 4.0 - 6.0 ADA THERAPEUTIC TARGET < 7.0 ACTION SUGGESTED > 7.0 Performed By: #### A 1C #### [facility] [address] [place] [address] Dr. Jihan Bryant Glucose [Mass/Vol] 111 mg/dL Normal [facility] Comment on above: Performed By: #### A 1C #### [facility] [address] [place] [address] Dr. Jihan Bryant HbA1c (Bld) [Mass fraction] 5.5 % Normal 4.5-6.2 [facility] Comment on above: Performed By: #### A 1C #### [facility] [address] [place] [address] Dr. Jihan Bryant LIPID PROFILEon 02-25-2022 CHOL-HDL RATIO NORM SEE BELOW Normal [facility] Comment on above: Result Comment: 3.3 - 4.4 LOW RISK 4.4 - 7.1 AVERAGE RISK 7.1 - 11.0 MODERATE RISK >11.0 HIGH RISK Performed By: #### C MP, LIPID, TSH #### [facility] [address] [place] [address] Dr. Jihan Bryant Cholesterol [Mass/Vol] 229 mg/dL Critically high <=200 [facility] Comment on above: Performed By: #### C MP, LIPID, TSH #### [facility] [address] [address] [address] Jihan Bryant Cholesterol in HDL [Mass/Vol] 59 mg/dL Normal 40-60 [facility] Comment on above: Performed By: #### C MP, LIPID, TSH #### [facility] [address] [address] [address] Jihan Bryant Cholesterol in LDL [Mass/Vol] 149.4 mg/dL Normal [facility] Comment on above: Performed By: #### C MP, LIPID, TSH #### [facility] [address] [address] [address] Jihan Bryant Cholesterol.total/Ch olesterol in HDL [Mass ratio] 3.9 {ratio} Normal [facility] Comment on above: Performed By: #### C MP, LIPID, TSH #### [facility] [address] [address] [address] Jihan Bryant HDL NORMAL > or = 60 mg/dl - LO W CARDIOVASCULAR RISK <40 mg/dl - HIGH CARDIOVASCULAR RISK Normal [facility] Comment on above: Performed By: #### C MP, LIPID, TSH #### [facility] [address] [address] [address] Jihan Bryant LDL CALC NORMAL SEE BELOW Normal [facility] Comment on above: Result Comment: <100 mg/dl OPTIMAL 100 - 129 mg/dl NEAR OR ABOVE OPTIMAL 130 - 159 mg/dl BORDERLINE HIGH 160 - 189 mg/dl HIGH >190 mg/dl VERY HIGH Performed By: #### C MP, LIPID, TSH #### [facility] [address] [address] [address] Jihan Bryant Triglyceride [Mass/Vol] 103 mg/dL Normal <=150 [facility] Comment on above: Performed By: #### C MP, LIPID, TSH #### [facility] [address] [address] [address] Jihan Bryant VLDL CALC 20.6 mg/dL Normal [facility] Comment on above: Performed By: #### C MP, LIPID, TSH #### [facility] [address] [address] [address] Jihan Bryant PROF 14(COMP METB)on 022 Albumin [Mass/Vol] 3.9 g/dL Normal 3.4-5.0 [facility] Comment on above: Performed By: #### C MP, LIPID, TSH #### [facility] [address] [address] [address] Jihan Bryant Albumin/Globulin [Mass ratio] 1.2 {ratio} Normal [facility] Comment on above: Performed By: #### C MP, LIPID, TSH #### [facility] [address] [address] [address] Jihan Bryant ALP [Catalytic activity/Vol] 93 U/L Normal 46-116 [facility] Comment on above: Performed By: #### C MP, LIPID, TSH #### [facility] [address] [address] [address] Jihan Bryant ALT [Catalytic activity/Vol] 22 U/L Normal 14-59 [facility] Comment on above: Performed By: #### C MP, LIPID, TSH #### [facility] [address] [address] [address] Jihan Bryant Anion gap [Moles/Vol] 9.9 mmol/L Normal [facility] Comment on above: Performed By: #### C MP, LIPID, TSH #### [facility] [address] [address] [address] Jihan Bryant AST [Catalytic activity/Vol] 12 U/L Critically low 15-37 [facility] Comment on above: Performed By: #### C MP, LIPID, TSH #### [facility] [address] [address] [address] Jihan Bryant Bilirubin [Mass/Vol] 0.9 mg/dL Normal 0.2-1.0 [facility] Comment on above: Performed By: #### C MP, LIPID, TSH #### [facility] [address] [address] [address] Jihan Bryant Calcium [Mass/Vol] 9.1 mg/dL Normal 8.5-10.1 [facility] Comment on above: Performed By: #### C MP, LIPID, TSH #### [facility] [address] [address] [address] Jihan Bryant Chloride [Moles/Vol] 104 mmol/L Normal 98-107 [facility] Comment on above: Performed By: #### C MP, LIPID, TSH #### [facility] [address] [address] [address] Jihan Bryant CO2 [Moles/Vol] 30.4 mmol/L Normal 21.0-32.0 [facility] Comment on above: Performed By: #### C MP, LIPID, TSH #### [facility] [address] [address] [address] Jihan Bryant Creatinine [Mass/Vol] 0.71 mg/dL Normal 0.55-1.02 [facility] Comment on above: Performed By: #### C MP, LIPID, TSH #### [facility] [address] [place] [address] Dr. Jihan Bryant EGFR-AF SWAZI >60 Normal >=60 [facility] Comment on above: Performed By: #### C MP, LIPID, TSH #### [facility] [address] [place] [address] Dr. Jihan Bryant EGFR-NON AF SWAZI >60 Normal >=60 [facility] Comment on above: Performed By: #### C MP, LIPID, TSH #### [facility] [address] [place] [address] Dr. Jihan Bryant Globulin (S) [Mass/Vol] 3.2 g/dL Normal [facility] Comment on above: Performed By: #### C MP, LIPID, TSH #### [facility] [address] [address] [address] Jihan Bryant Glucose [Mass/Vol] 104 mg/dL Normal 74-106 [facility] Comment on above: Performed By: #### C MP, LIPID, TSH #### [facility] [address] [address] [address] Jihan Bryant Potassium [Moles/Vol] 4.3 mmol/L Normal 3.5-5.1 [facility] Comment on above: Performed By: #### C MP, LIPID, TSH #### [facility] [address] [address] [address] Jihan Bryant Protein [Mass/Vol] 7.1 g/dL Normal 6.4-8.2 [facility] Comment on above: Performed By: #### C MP, LIPID, TSH #### [facility] [address] [address] [address] Jihan Bryant Sodium [Moles/Vol] 140 mmol/L Normal 136-145 [facility] Comment on above: Performed By: #### C MP, LIPID, TSH #### [facility] [address] [address] [address] Jihan Bryant Urea nitrogen [Mass/Vol] 18.0 mg/dL Normal 7.0-18.0 [facility] Comment on above: Performed By: #### C MP, LIPID, TSH #### [facility] [address] [address] [address] Jihan Bryant Urea nitrogen/Creatinine [Mass ratio] 25.4 mg/mg Normal [facility] Comment on above: Performed By: #### C MP, LIPID, TSH #### [facility] [address] [address] [address] Jihan Bryant TSHon 02-25-2022 TSH 2.224 uIU/mL Normal 0.358-3.740 [facility] Comment on above: Performed By: #### C MP, LIPID, TSH #### [facility] [address] [place] [address] Dr. Jihan Bryant Ambulatory Clinical Summaryo n 08-19-2020 Ambulatory Clinical Summary {[id number]}CD:[id number] Normal [facility] General Surgery Office/Clini c Noteon 08-19-2020 General Surgery Office/Clinic Note HPI Staff 3 week post operative visit following umbilical hernia repair at [facility]. Denies pain or complications. History of [...] Information Dilshad MARTELL MD Only if needed [address] [email or web address] [address]- Additional Instructions: Problem List/Past Medical [...] type 2: Mother. Heart disease: Father. Normal [facility] Comment on above: Result Comment: Elec tronically Signed By: NIURKA PIERRE, Dilshad Dahl\Date and Time Signed: 08/19/20 13:26 EST Consultation Noteon 08-11-19 Consultation Note [id number] .00CD:127 Normal [facility] RAD - MRI Reporton RAD - MRI Report [id number] .00CD:127 Normal [facility] Ambulatory Clinical Summaryo n 08-05-2020 Ambulatory Clinical Summary {[id number]}CD:[id number] Normal [facility] General Surgery Office/Clini c Noteon 08-05-2020 [...] mellitus type 2: Mother. Heart disease: Father. [facility] Comment on above: Result Comment: Elec tronically Signed By: NIURKA PIERRE, Dilshad Dahl\Date and Time Signed: 08/05/20 17:23 EST Operative Reporton 1 Operative Report [id number] .00CD:127 [facility] Operative Reporton 1 Operative Report [id number] .[id number]:127 [facility] Ambulatory Clinical Summaryo n 07-21-2020 Ambulatory Clinical Summary {[id number]}CD:[id number] Normal [facility] Patient Educationon 07-21-19 21 Patient Education [...] Document Reviewed: 07/27/2012 ExitCare? Patient Information ?2013 CMP.LY. [facility] Urology Office/Clinic Noteon 07-21-2020 Urology Office/Clinic Note Chief Complaint Pt is new and referred by Dr. Vasquez pt is having ureter stents put in on 07/29/2020. This patient is a 49-year-old female with a history of a left ovarian cyst and umbilical hernia. She is being scheduled for combined general surgery and RECORD CHANGER surgery procedure. A request has been made [...] Urnls Dip Stick Auto w/o Microscopy POC 17317 I have reviewed the previous health record information and history for this pt. from Dr. Cummings. Follow-up With When Contact Information Emiliano Mcconnell MD, Tony Schaefer [address] [place] [address] Drive [place] [id number] Additional Instructions: Patient Education Urinary Tract Infection [...] Protein Urine Dipstick: Trace (07/21/20 09:04:00) Specific [place] Urine Dipstick: >=1.030 (07/21/20 09:04:00) Urine Appearance Urine Dipstick: Clear (07/21/20 09:04:00) Urine Color Urine Dipstick: Dark yellow (07/21/20 09:04:00) Urobilinogen Urine Dipstick: Normal 0.2-1 EU/dl (07/21/20 09:04:00) pH Urine Dipstick: 5 (07/21/20 09:04:00) Diagnostic Results Urinalysis was reviewed. No evidence of infection was noted. Normal [facility] Comment on above: Result Comment: Elec tronically Signed By: Emiliano Mcconnell MD, Tony Schaefer\.br\Date and Time Signed: 07/21/20 09:57 EST\.br\Electronically Co-Signed By: Deanna Lee MA\.br\Date and Time Co-Signed: 07/21/20 09:49 EST Consent for Procedure/Surger yon 07-08-2020 Consent for Procedure/Surgery [id number] .[id number]:127 Normal [facility] Ambulatory Clinical Summaryo n 06-24-2020 Ambulatory Clinical Summary {[id number] [facility] Facesheeton 06-24-2020 Facesheet [id number]. 00CD:127 Normal [facility] Provider Letter FTon 06-24 Provider Letter [facility] MICHELLE CARDOZA, [address] [place] [address] Re: KIKA KUMAR Date of : 1970 Thank you for your referral of Kika Kumar who was seen on consultation on June 23, 2020, for umbilical hernia. A possible combined surgery is planned. I have enclosed my consultation notes for your review. I will be happy to follow Kika should her symptoms persist. Sincerely, Dilshad Martell MD General Surgery Normal [facility] General Surgery Office/Clini c Noteon 06-23-2020 [...] available Patient Education Exercise to Lose Weight, Enzi-mo-Fqvc Problem List/Past Medical History Ongoing Allergic rhinitis, [...] Primary malignant neoplasm of colon: Father. Normal Michel [facility] Comment on above: Result Comment: Elec tronically [...] Document Reviewed: 07/22/2011 ExitCare? Patient Information ?2013 CMP.LY. [facility] Physician Referralon 020 Physician Referral [id number] .00CD:127 [facility] Vital Signs Date Time Vital Sign Value Performing Clinician Radames delgado 09-30-2024 13:11-0400 Body mass index (BMI) [Ratio] 27.6 kg/m2 Angelina Salcedo PA Work Phone: [facility] 09-30-2024 13:11-0400 Body weight 77.56 kg Angelina Salcedo PA Work Phone: [facility] 09-30-2024 13:11-0400 Diastolic blood pressure 68 mm[Hg] Angelina Salcedo PA Work Phone: [facility] 09-30-2024 13:11-0400 Systolic blood pressure 118 mm[Hg] Angelina Salcedo PA Work Phone: [facility] 05-23-2024 08:37-0500 Body mass index (BMI) [Ratio] 29.99 kg/m2 Angelina Anita PA Work Phone: [facility] 05-23-2024 08:37-0500 Body weight 84.28 kg Angelina Salcedo PA Work Phone: [facility] 05-23-2024 08:37-0500 Diastolic blood pressure 76 mm[Hg] Angelina Anita PA Work Phone: [facility] 05-23-2024 08:37-0500 Systolic blood pressure 114 mm[Hg] Angelina Salcedo PA Work Phone: [facility] Healthcare Encounters Encounter Date Encounter Type Care Provider Facility Start: 09-30-2024 End: 09-30-2024 Bamboo flowsheet Angelina ARNOLD Work Phone: [facility] Start: 09-30-2024 End: 09-30-2024 Bamboo flowsheet Angelina ARNOLD Work Phone: [facility] Start: 09-30-2024 End: 09-30-2024 Patient encounter procedure Angelina ARNOLD Work Phone: [facility] Start: 09-30-2024 End: 09-30-2024 Periodic preventive med est patient 40-64yrs Angelina ARNOLD Work Phone: [facility] Comment on above: Well woman exam with routine gynecological exam; Encounter for screening for osteoporosis; Breast cancer screening by mammogram Start: 08-16-2024 End: 08-16-2024 Clinisync Result Encounter Angelina ARNOLD Work Phone: [facility] Unsolicited Start: 08-16-2024 End: 08-16-2024 Clinisync Result Encounter Angelina ARNOLD Work Phone: [facility] Unsolicited Start: 07-08-2024 End: 07-08-2024 Clinisync Result Encounter Angelina ARNOLD Work Phone: [facility] Unsolicited Start: 07-08-2024 End: 07-08-2024 Clinisync Result Encounter Angelina ARNOLD Work Phone: [facility] Unsolicited Start: 05-23-2024 End: 05-23-2024 Bamboo flowsheet Angelina ARNOLD Work Phone: [facility] Start: 05-23-2024 End: 05-23-2024 Bamboo flowsheet Angelina ARNOLD Work Phone: [facility] Start: 05-23-2024 End: 05-23-2024 Office outpatient visit 15 minutes Angelina ARNOLD Work Phone: [facility] Comment on above: Encounter for weight management; Follow-up exam; Hormone disorder Start: 05-23-2024 End: 05-23-2024 ambulatory ANGELINA SALCEDO Not Available Start: 01-18-2024 End: 01-18-2024 ambulatory ANGELINA SALCEDO Not Available Start: 11-24-2023 End: 11-24-2023 ambulatory [facility] Work Phone: Start: 11-24-2023 End: 11-24-2023 Patient encounter procedure [facility] Physician [facility] Work Phone: Start: 09-18-2023 End: 09-18-2023 ambulatory SHANNON CRUZ Not Available Start: 11-29-2022 End: 11-29-2022 ambulatory Michelle Cardoza Other [facility] Other Start: 11-29-2022 Nursing evaluation o f patient and report Michelle Cardoza [facility] Start: 10-27-2022 End: 10-28-[address] LYLE VASQUEZ . Facility:[facility] Start: 10-24-2022 End: 10-24-2022 ambulatory Michelle Cardoza Other [facility] Other Start: 10-24-2022 Nursing evaluation o f patient and report Michelle Cardoza [facility] Start: 09-13-2022 End: 09-13-[address] MICHELLE CARDOZA Facility:[facility] Start: 04-28-2022 End: 04-29-[address] MICHELLE CARDOZA Facility:[facility] Start: 02-28-2022 Encounter for genera l adult medical examination without abnormal findings DR MICHELLE CARDOZA [facility] Start: 02-25-2022 End: 02-26-[address] MICHELLE CARDOZA Facility:[facility] Start: 02-25-2022 End: 02-26-2022 Encounter for general adult medical examination without abnormal findings DR MICHELLE CARDOZA Facility:[facility] Procedures Date Procedure Procedure Detail Performing Clinician Start: 09-30-2024 Urnls dip stick/tabl et rgnt non-auto w/o micrscp Angelina ARNOLD Work Phone: Start: 08-16-2024 [facility] CMP (CMP) (FOR [facility] USE) Angelina ARNOLD Work Phone: Start: 07-08-2024 MLR HEMOGLOBIN A1C Angelina ARNOLD Work Phone: Start: 11-29-2023 Mammography Angelina ARNOLD Work Phone: Start: 09-18-2023 Microscopic observat ion [Identifier] in Cervix by Cyto stain Angelina ARNOLD Work Phone: Start: 09-18-2023 Cytp cerv/vag auto t hin layer prep mnl screen Shannon Cruz DO Work Phone: Start: 09-13-2022 Microscopic observat ion [Identifier] in Cervix by Cyto stain Angelina ARNOLD Work Phone: Plan of Treatment Date Care Activity Detail Author Start: 09-17-2028 Screening for malign ant neoplasm of cervix [facility] Start: 09-09-2026 Screening for malign ant neoplasm of cervix [facility] Start: 09-13-2025 Screening for malign ant neoplasm of cervix Pap Smear [facility] Start: 11-28-2024 Screening for malign ant neoplasm of breast Mammogram [facility] Start: 09-30-2024 End: 09-30-2025 DXA Skeletal system Views for bone density DEXA bone density Imaging Routine Encounter for screening for osteoporosis Expected: 09/30/2024 (Approximate), Expires: 09/30/2025 [facility] Comment on above: Expected: 09/30/2024 (Approximate), Expires: 09/30/2025 Start: 09-30-2024 End: 11-30-2025 MG Breast - bilateral Screening Bilateral screening mammogram Imaging Routine Breast cancer screening by mammogram Expected: 09/30/2024 (Approximate), Expires: 11/30/2025 [facility] Work Phone: Comment on above: Expected: 09/30/2024 (Approximate), Expires: 11/30/2025 Start: 09-30-2024 End: 09-30-2024 Patient encounter procedure [facility] Comment on above: Arrived Start: 09-23-2024 End: 09-23-2024 Patient encounter procedure 09/23/2024 1:00 PM EDT Office Visit [facility] [address] [place] [address] Shannon Cruz DO [address] [place] [address] [facility] Start: 05-23-2024 End: 05-23-2025 C-peptide C-peptide Lab Routine Hormone disorder Expected: 05/23/2024, Expires: 05/23/2025 [facility] Comment on above: Expected: 05/23/2024 , Expires: 05/23/2025 Start: 05-23-2024 End: 05-23-2025 Cortisol free Cortisol, free Lab Routine Hormone disorder Expected: 05/23/2024, Expires: 05/23/2025 [facility] Comment on above: Expected: 05/23/2024 , Expires: 05/23/2025 Start: 05-23-2024 End: 05-23-2025 DHEA-sulfate DHEA-sulfate Lab Routine Hormone disorder Expected: 05/23/2024 (Approximate), Expires: 05/23/2025 [facility] Comment on above: Expected: 05/23/2024 (Approximate), Expires: 05/23/2025 Start: 05-23-2024 End: 05-23-2025 Estradiol Estradiol Lab Routine Hormone disorder Expected: 05/23/2024 (Approximate), Expires: 05/23/2025 [facility] Work Phone: Comment on above: Expected: 05/23/2024 (Approximate), Expires: 05/23/2025 Start: 05-23-2024 End: 05-23-2025 Estrone Estrone Lab Routine Hormone disorder Expected: 05/23/2024 (Approximate), Expires: 05/23/2025 [facility] Comment on above: Expected: 05/23/2024 (Approximate), Expires: 05/23/2025 Start: 05-23-2024 End: 05-23-2025 Ferritin [Mass/volume] in Serum or Plasma Ferritin Lab Routine Hormone disorder Expected: 05/23/2024 (Approximate), Expires: 05/23/2025 [facility] Comment on above: Expected: 05/23/2024 (Approximate), Expires: 05/23/2025 Start: 05-23-2024 End: 05-23-2025 Glucose [Mass/volume] in Serum or Plasma Glucose, random Lab Routine Hormone disorder Expected: 05/23/2024, Expires: 05/23/2025 [facility] Healthcare Comment on above: Expected: 05/23/2024 , Expires: 05/23/2025 Start: 05-23-2024 End: 05-23-2025 Hemoglobin A1c/Hemoglobin.total in Blood Hemoglobin A1c Lab Routine Hormone disorder Expected: 05/23/2024 (Approximate), Expires: 05/23/2025 [facility] Comment on above: Expected: 05/23/2024 (Approximate), Expires: 05/23/2025 Start: 05-23-2024 End: 05-23-2025 Insulin, total Insulin, total Lab Routine Hormone disorder Expected: 05/23/2024, Expires: 05/23/2025 [facility] Comment on above: Expected: 05/23/2024 , Expires: 05/23/2025 Start: 05-23-2024 End: 05-23-2025 Progesterone Progesterone Lab Routine Hormone disorder Expected: 05/23/2024 (Approximate), Expires: 05/23/2025 [facility] Comment on above: Expected: 05/23/2024 (Approximate), Expires: 05/23/2025 Start: 05-23-2024 End: 05-23-2025 Serotonin serum Serotonin serum Lab Routine Hormone disorder Expected: 05/23/2024, Expires: 05/23/2025 [facility] Comment on above: Expected: 05/23/2024 , Expires: 05/23/2025 Start: 05-23-2024 End: 05-23-2025 Sex hormone binding globulin Sex hormone binding globulin Lab Routine Hormone disorder Expected: 05/23/2024 (Approximate), Expires: 05/23/2025 [facility] Comment on above: Expected: 05/23/2024 (Approximate), Expires: 05/23/2025 Start: 05-23-2024 End: 05-23-2025 T3, reverse T3, reverse Lab Routine Hormone disorder Expected: 05/23/2024 (Approximate), Expires: 05/23/2025 [facility] Comment on above: Expected: 05/23/2024 (Approximate), Expires: 05/23/2025 Start: 05-23-2024 End: 05-23-2025 TESTOSTERONE, FREE TESTOSTERONE, FREE Lab Routine Hormone disorder Expected: 05/23/2024 (Approximate), Expires: 05/23/2025 [facility] Comment on above: Expected: 05/23/2024 (Approximate), Expires: 05/23/2025 Start: 05-23-2024 End: 05-23-2025 Testosterone, free, total Testosterone, free, total Lab Routine Hormone disorder Expected: 05/23/2024 (Approximate), Expires: 05/23/2025 [facility] Comment on above: Expected: 05/23/2024 (Approximate), Expires: 05/23/2025 Start: 05-23-2024 End: 05-23-2025 Thyroglobulin Thyroglobulin Lab Routine Hormone disorder Expected: 05/23/2024, Expires: 05/23/2025 [facility] Comment on above: Expected: 05/23/2024 , Expires: 05/23/2025 Start: 05-23-2024 End: 05-23-2025 Thyroglobulin Antibody Thyroglobulin Antibody Lab Routine Hormone disorder Expected: 05/23/2024, Expires: 05/23/2025 [facility] Comment on above: Expected: 05/23/2024 , Expires: 05/23/2025 Start: 05-23-2024 End: 05-23-2025 Thyroid peroxidase antibody Thyroid peroxidase antibody Lab Routine Hormone disorder Expected: 05/23/2024 (Approximate), Expires: 05/23/2025 [facility] Comment on above: Expected: 05/23/2024 (Approximate), Expires: 05/23/2025 Start: 05-23-2024 End: 05-23-2025 Thyrotropin [Units/volume] in Serum or Plasma [facility] Comment on above: Expected: 05/23/2024 (Approximate), Expires: 05/23/2025 Expected: 05/23/2024 , Expires: 05/23/2025 Start: 05-23-2024 End: 05-23-2025 Thyroxine (T4) free [Mass/volume] in Serum or Plasma T4, free Lab Routine Hormone disorder Expected: 05/23/2024 (Approximate), Expires: 05/23/2025 [facility] Comment on above: Expected: 05/23/2024 (Approximate), Expires: 05/23/2025 Start: 05-23-2024 End: 05-23-2025 Triiodothyronine (T3) Free [Mass/volume] in Serum or Plasma T3, free Lab Routine Hormone disorder Expected: 05/23/2024 (Approximate), Expires: 05/23/2025 [facility] Comment on above: Expected: 05/23/2024 (Approximate), Expires: 05/23/2025 Start: 05-23-2024 End: 05-23-2025 Vitamin D 1,25 dihydroxy Vitamin D 1,25 dihydroxy Lab Routine Hormone disorder Expected: 05/23/2024 (Approximate), Expires: 05/23/2025 [facility] Comment on above: Expected: 05/23/2024 (Approximate), Expires: 05/23/2025 Start: 05-23-2024 End: 05-23-2024 Patient encounter procedure 05/23/2024 8:30 AM EST Office Visit [facility] [address] [id number] Angelina Salcedo PA [address] [place] [address] Arrived [facility] Comment on above: Arrived Start: 03-03-2024 Influenza vaccination Influenza Vacc ine (#1) [facility] Start: 1970 Screening for malign ant neoplasm of colon [facility] THIN PREP TIS PAP AN D HR HPV DNA THIN PREP TIS PAP AND HR HPV DNA Pathology and Cytology Routine Well woman exam with routine gynecological exam Ordered: 09/30/2024 [facility] Comment on above: Ordered: 09/30/2024 Immunizations Immunization Date Immunization Notes Care Provider Fa cili 04-04-2019 influenza virus vacc ine, unspecified formulation Angelina ARNOLD Work Phone: [facility] Payers Date Payer Category Payer Private Health Insurance [employer] [id number] 2023 Blue Cross Blue Shield BCBS Memb er Subscriber Plan / Payer (Effective 2023-Present) Name: Kika Vidales Member ID: [id number] Relation to Subscriber: Self Name: Kika Vidales Subscriber ID: [id number] Payer ID: Not on file Type: Not on file Address: [address] [place] [address] [id number] 2022 Blue Cross Blue Shield [id number] 2019 Unknown [id number] 1970 Unknown [id number] 1970 Unknown [id number] 1970 Unknown [id number] 1970 Unknown [id number] 1970 Unknown [id number] 1259 1970 Unknown [id number] [id number] 1970 Unknown [id number] [id number] Social History Date Type Detail Facility Start: 08-29-2023 End: 01-18-2024 Sex Assigned At [facility] Other Start: 1970 Sex Assigned At Female F [facility] Start: 08-29-2023 Tobacco smoking stat NHIS Never smoked tobacco [facility] Start: 01-18-2024 End: 09-30-2024 Alcoholic beverage intake Current drinker of alcohol (finding) [facility] Start: 08-29-2023 End: 01-18-2024 History of Social function [facility] Start: 1970 Sex assigned at Not on file N [facility] History of Present illness Narrative 09-30-2024 CLAYTON Case - 09/30/2024 1:00 PM EDT Note Date & Type Note Facility 09-30-2024 History of Presen t illness Narrative Reason for Appointment: Patient ID: Kika Vidales is a 53 y.o. female who presents for Gynecologic Exam (Pt present today for an annual visit) Patient presents today for Annual Exam. MEDICATIONS Current Outpatient Medications Medication Instructions calcium 200 MG tablet Oral cetirizine (ZyrTEC) 10 MG tablet Oral, As needed phentermine (ADIPEX-P) 37.5 mg, Oral, Daily before breakfast ALLERGIES Allergies Allergen Reactions Penicillin G Other [...] Objective: Physical Exam Constitutional: Appearance: Normal appearance. Genitourinary: Right Adnexa: not tender and no mass present. Left Adnexa: not tender and no mass present. Cervix is absent. Uterus is absent. Breasts: Breasts are soft. Right: Normal. Left: Normal. HENT: Head: Normocephalic. Nose: Nose normal. Mouth/Throat: Mouth: Mucous membranes are moist. Cardiovascular: Rate and Rhythm: Normal rate. Pulmonary: Effort: Pulmonary effort is normal. Abdominal: General: Bowel sounds are normal. Palpations: Abdomen is soft. Musculoskeletal: General: Normal range of motion. Cervical back: Normal range of motion. Neurological: General: No focal deficit present. Mental Status: She is alert. Skin: General: Skin is warm and dry. Psychiatric: Mood and Affect: Mood normal. Vitals and nursing note reviewed. Exam conducted with a bulb filler present. Vitals: Estimated body mass index is 29.99 kg/m as calculated from the following: Height as of 09/18/23: 5' 6 . Weight as of 05/23/24: 185 lb 12.8 oz. BP: No LMP recorded. Patient has had a hysterectomy. ASSESSMENT & PLAN ICD-10-CM 1. Well woman exam with routine gynecological exam Z01.419 THIN PREP TIS PAP AND HR HPV DNA 2. Encounter for screening for osteoporosis Z13.820 DEXA bone density 3. Breast cancer screening by mammogram Z12.31 Bilateral screening mammogram Bilateral screening mammogram Annual: Patient presents today for an annual exam. Patient states she is doing well and has no complaints. Pap was obtained without difficulty and patient given mammogram order to have scheduled/obtained. Orders Placed This Encounter Procedures Bilateral screening mammogram DEXA bone density Follow Up: Patient is to return in one year for annual unless needed otherwise. Documented by Paty Delacruz MA on behalf of: [facility] Case documented in this encounter [facility] History of Present illness Narrative 11-21-2024 [facility]LAYTON Case - 05/23/2024 8:30 AM EST [...] nursing note reviewed. Exam conducted with a bulb filler present. Vitals: Estimated body mass index is [...] of: [facility] Case documented in this encounter [facility] Evaluation note 11-29-2022 Note Date & Type Note Facility 11-29-2022 Evaluation note Encounter Date Diagnosis Assessment Notes October, Seasonal allergic rhinitis, unspecified trigger (ICD-10 - J30.2) [facility] Other Evaluation note 10-24-2022 Note Date & Type Note Facility 10-24-2022 Evaluation note Encounter Date Diagnosis Assessment Notes Oct, Dysuria (ICD-10 - R30.0) [facility] Other Evaluation note Note Date & Type Note Facility Evaluation note No assessment information [facility] Work Phone: Evaluation note Note Date & Type Note Facility Evaluation note Diagnosis Encounter for weight management Follow-up exam Unspecified follow-up examination Hormone disorder Unspecified endocrine disorder documented in this encounter [facility] Evaluation note Note Date & Type Note Facility Evaluation note Diagnosis Well woman exam with routine gynecological exam Routine gynecological examination Encounter for screening for osteoporosis Breast cancer screening by mammogram documented in this encounter [facility] Summary Purpose Family History No Family History Records FoundNo Family History Records FoundNo Family History Records Found Advance Directives Advance Directive Response Recorded Date/ Time Advance Directives No November 23 10:04am Chief Complaint and Reason for Visit Chief Complaint Allergy Shot Additional Source Comments INFORMATION SOURCE (unrecogn ized section and content) DATE CREATED AUTHOR 08/21/2020 [facility] DATE CREATED AUTHOR AUTHOR'S ORGANIZ ATION 11/04/2022 [facility] [facility] DATE CREATED AUTHOR AUTHOR'S ORGANIZ ATION 05/26/2024 [facility] EPIC REASON FOR VISIT (unrecogniz ed section and content) Reason Comments Weight Management Follow-up Reason Comments Gynecologic Exam Pt present today for an annual visit Care Teams (unrecognized sec tion and content) Team Status: Active Member Role Status Dates Michelle Cardoza MD Primary Care Provider Active Team Status: Inactive Member Role Status Dates Michelle Cardoza MD Primary Care Provide r, Attending Provider Active Start: November 24, 2023 End: November 24, 2023 Tmd Teacher Relationship Specialty Start Date End Date Michelle Cardoza MD [address] [place] [phone] PCP - General Family Medicine 09/18/23 Tmd Teacher Relationship Specialty Start Date End Date Michelle Cardoza MD [address] [place] [phone] PCP - General Family Medicine 09/18/23 Tmd Teacher Relationship Specialty Start Date End Date Michelle Cardoza MD [address] [place] [phone] PCP - General Family Medicine 09/18/23 Tmd Teacher Relationship Specialty Start Date End Date Michelle Cardoza MD [address] [place] [address] [place] [address] PCP - General Family Medicine 09/18/23 Goals [...] BE BASED ON THE PRIMARY CLINICAL RECORDS. [facility] [employer] [facility]. provides no warranty or guarantee of the accuracy or completeness of information in this document.
== END 2024-09-30 20:51 | disposition home or self-care (01) ==
LOC: LAB 20:50
PROVIDERS: PCP Family Medicine; Visit Provider Physician Assistant
DX: Z01.419 Encounter for gynecological examination (general) (routine) without abnormal findings (principal)
CPT/HCPCS: 88175

== ENCOUNTER 2025-01-16 06:47 | Outpatient (OUT) | payer OTHER, SELFPAY ==
--- OUTSIDE RECORDS SUMMARY | 2025-01-16 06:52 | XMS_ITS | CCD ---
Author Organization [facility] Care Team Providers Care 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 Name Role Phone Michelle Cardoza Unavailable NANI, [...] e NORAH, DR LESLI Cr Consulting Unavailable KIRTEBER, DR FILIPE Chavez Consulting Unavailable CARDOZA, DR [...] Unavailable Michelle Cardoza MD Primary Care Provider [phone] ANGELINA SALCEDO Attending Unavailable ANGELINA SALCEDO Attending Unavailable ANGELINA SALCEDO Attending Unavailable Allergies Allergy Classification Reported Allergen(s) Allergy Type Date of Onset Reaction(s) Facility Penicillins (antibiotic) (1 source) Penicillins Drug Allergy 3 P[facility] Comment:REACTIO N HAPPENED A CHILD [facility] Sulfonamides (antibiotic) (1 source) Sulfonamides (Antibiotic) Drug Allergy 3 [facility] (2 sources) Penicillin Drug Allergy Unknown Home Comfort Zones Other (11 sources) Substance with sulfonamide structure and antibacterial mechanism of action (substance) Drug allergy 3 Unknown [facility] Other (1 source) Penicillins Drug allergy (disorder) 4 [facility] (1 source) Sulfonamides (Antibiotic) Drug allergy (disorder) 4 [facility] (9 sources) Penicillin G Drug Allergy 4 [facility] Work Phone: (9 sources) Penicillins Drug Allergy 3 [facility] Medications Current Medications Medication Drug Class(es) Dates Sig (Normalized) Sig (Original) Calcium (8 sources) Phosphate Binder, Calcium calcium 200 MG tablet Take by mouth Active cetirizine hydrochloride 10 mg oral tablet (8 sources) Histamine-1 Receptor Antagonist cetirizine (ZyrTEC) 10 [...] Test Name Value Interpretation Reference Range Facility IGP,APTIMA HPV,AGE GDLNon AGE GDLN ACOG TESTING Note . [facility] Comment on above: TESTS RESULT FLAG UN ITS REF RANGE LAB Clinician Provided Cytology Information Source.............Vagina No. of containers..01 ThinPrep Vial Age Rhonda Ramos... 31 FLAG LEGEND: L-Low Normal,H-High Normal,LL-Alert Low,HH-Alert High <-Panic Low,>-Panic High,A-Abnormal,AA-Critical Abnormal Performed at: 01 =G [address] [place] [address] Elle Silveira MD, HPV APTIMA Negative Negative [facility] Comment on above: This nucleic acid am plification test detects fourteen high- risk HPV types (16,18,31,33,35,39,45,51,52,56,58,59,66,68) without differentiation. Performed at: = - [address] [id number] Tomato Grader: Elle Silveira MD, Phone: [phone] Performed at: - [address] [id number] Tomato Grader: Elle Silveira MD, Phone: [phone] IGP, APTIMA HPV, RFX 16/18,45 Note . [facility] Comment on above: TESTS RESULT FLAG UN ITS REF RANGE LAB DIAGNOSIS: 02 NEGATIVE FOR INTRAEPITHELIAL LESION OR MALIGNANCY. Specimen adequacy: 02 Satisfactory for evaluation. Performed by: 02 Estela Anderson Procurement Consultant ([facility]) . 02 Note: Note 02 The Pap smear is a screening test designed to aid in the detection of premalignant and malignant conditions of the uterine cervix. It is not a diagnostic procedure and should not be used as the sole means of detecting cervical cancer. Both false-positive and false-negative reports do occur. Test Methodology: Note 02 This liquid based ThinPrep(R) pap test was screened with the use of an image guided system. HPV Genotype Reflex Note 02 Criteria not met, HPV Genotype not performed. FLAG LEGEND: L-Low Normal,H-High Normal,LL-Alert Low,HH-Alert High <-Panic Low,>-Panic High,A-Abnormal,AA-Critical Abnormal Performed at: 02 WB [facility] [address] [address] Elle Silveira MD, SP[facility] Urinalysis macro (dipstick) panel (U)on 09-30-2024 Bilirubin, UA Positive Negative - 4(70) +++ mg/dL [facility] Comment on above: small Blood, UA Positive Negative - 50 Yair/mcL [facility] Comment on above: trace Clarity, UA Clear [facility] Color, UA Brenda [facility] Glucose, UA Negative Negative - 2000(110) ++++ mg/dL [facility] Interpretation and review of laboratory results Abnormal [facility] Ketones, UA Negative Negative - 160(16) ++++ mg/dL [facility] Leukocytes, UA Negative Negative - 500+++ William/mcL [facility] Nitrite, UA Negative Negative - Positive [facility] pH, UA 5.5 5 - 9 [facility] Protein, UA Positive Negative - 1999(20) ++++ mg/dL [facility] Comment on above: 30 Spec Grav, UA 1.03 1 - 1.03 [facility] Urobilinogen, UA 0.2 0.2 - 12 mg/dL [facility] CMP (CMP) (FOR REMOTE FH C USE)on 08-16-2024 Albumin [Mass/Vol] 4 g/dL 3.4 - 5.0 g/dL NO [facility] ALBUMIN GLOBULIN RATIO 1.3 [facility] ALP [Catalytic activity/Vol] 101 U/L 46 - 116 U/L [facility] ALT [Catalytic activity/Vol] 20 U/L 14 - 59 U/L [facility] Anion gap [Moles/Vol] 13.2 mmol/L [facility] AST [Catalytic activity/Vol] 18 U/L 15 - 37 U/L [facility] Bilirubin [Mass/Vol] 0.9 mg/dL 0.2 - 1 .0 mg/dL [facility] Calcium [Mass/Vol] 9 mg/dL 8.5 - 10. 1 mg/dL [facility] Chloride [Moles/Vol] 106 mmol/L 98 - 10 7 mmol/L [facility] CO2 [Moles/Vol] 25.4 mmol/L 21.0 - 32.0 mmol/L [facility] Creatinine [Mass/Vol] 0.83 mg/dL 0.55 - 1.02 mg/dL [facility] GFR/1.73 sq M.predicted CKD-EPI (S/P/Bld) [Vol rate/Area] >60 >=60 mL/min/1.73m 2 [facility] Globulin (S) [Mass/Vol] 3.1 g/dL [facility] Glucose [Mass/Vol] 97 mg/dL 74 - 106 mg/dL NO [facility] Potassium [Moles/Vol] 3.6 mmol/L 3.5 - 5.1 mmol/L [facility] Protein [Mass/Vol] 7.1 g/dL 6.4 - 8.2 g/dL NO [facility] Sodium [Moles/Vol] 141 mmol/L 136 - 145 mmol/L [facility] TBH EGFR-NON AF EGYPTIAN >60 >=60 mL/min/1.73m 2 [facility] Urea nitrogen [Mass/Vol] 12 mg/dL 7.0 - 18.0 mg/dL [facility] Urea nitrogen/Creatinine [Mass ratio] 14.5 mg/mg [facility] MLR HEMOGLOBIN A1Con 025 Glucose [Mass/Vol] 117 mg/dL [facility] HbA1c (Bld) [Mass fraction] 5.7 % 4.5 - 6.2 % [facility] Comment on above: ADA RECOMMENDED LIMI T 4.0 - 6.0 ADA THERAPEUTIC TARGET < 7.0 ACTION SUGGESTED > 7.0 [facility] Cytology Cervical or vaginal smear or scraping studyon 09-18-2023 [facility] XR DEXA BONE DENSITYon 10-28 XR [...] by: FILIPE MORAES Date: 2022-10-28 06:58 Normal [facility] MAMM SCREEN 3D FADIA CADon 10-27-2022 MG MAMM SCREEN 3D FADIA CAD Patient: KIKA KUMAR Exam Date: 10/27/2022 : 1970 Gender:F Ordering : DR LYLE VASQUEZ . Admission #: [id number] Family : Order #: [id number] CLICK HERE TO VIEW EXAM RADIOLOGY REPORT [...] colon cancer at age 61. LOCATION: [facility] BREAST COMPOSITION: Heterogeneously dense,which may obscure [...] Almazan MD on 10/28/2022 at 07:42 Normal [facility] PAP ACOG PANEL 2: 30 to 65on 09-22-2022 . . Normal [facility] Comment on above: Result Comment: Perf ormed at: WB Performed By: #### [id number] #### [facility] [address] [address] [address] Jihan Bryant Age Gdln ACOG Testing 30-65 Normal [facility] Comment on above: Performed By: #### [id number] #### [facility] [address] [place] [address] Dr. Jihan Bryant DIAGNOSIS: Comment Normal [facility] Comment on above: Result Comment: NEGA TIVE FOR INTRAEPITHELIAL LESION OR MALIGNANCY. THIS SPECIMEN WAS RESCREENED PART OF OUR PLANT PRODUCTION WORKER PROGRAM. Performed at: WB Performed By: #### [id number] #### [facility] [address] [address] [address] Jihan Bryant HPV Aptima Negative Normal Negative [facility] Comment on above: Result Comment: This nucleic acid amplification test detects fourteen high-risk HPV types (16,18,31,33,35,39,45,51,52,56,58,59,66,68) without differentiation. Performed at: =G Performed By: #### [id number] #### [facility] [address] [address] [address] Jihan Bryant HPV Genotype Reflex Comment Normal [facility] Comment on above: Result Comment: Crit eria not met, HPV Genotype not performed. Performed at: WB Performed By: #### [id number] #### [facility] [address] [address] [address] Jihan Bryant Methodology: Comment Normal [facility] Comment on above: Result Comment: This liquid based ThinPrep(R) pap test was screened with the use of an image guided system. Performed at: WB Performed By: #### [id number] #### [facility] [address] [address] [address] Jihan Bryant Note: Comment Normal [facility] Comment on above: Result Comment: The Pap smear is a screening test designed to aid in the detection of premalignant and malignant conditions of the uterine cervix. It is not a diagnostic procedure and should not be used as the sole means of detecting cervical cancer. Both false-positive and false-negative reports do occur. . Performed at: WB Performed By: #### [id number] #### [facility] [address] [address] [address] Jihan Bryant Performed by: Comment Normal [facility] Comment on above: Result Comment: Hakan Anderson, Procurement Consultant (ASCP) Performed at: WB Performed By: #### [id number] #### [facility] [address] [place] [address] Dr. Jihan Bryant QC reviewed by: Comment Normal [facility] Comment on above: Result Comment: Catracho Liang, Supervisory Procurement Consultant (ASCP) Performed at: WB Performed By: #### [id number] #### [facility] [address] [address] [address] Jihan Bryant Specimen adequacy: Comment Normal [facility] Comment on above: Result Comment: Sati sfactory for evaluation. Areas of partially obscuring inflammatory exudate are present. Performed at: WB Performed By: #### 4 [id number] #### [facility] [address] [place] [address] Dr. Jihan Bryant MRI IACS WO W [...] LESLI ALMAZAN Date: 2022-04-28 19:05 Normal [facility] CBC AUTO DIFFon 02-25-2022 BASO # 0.1 103/ul Normal 0.0-0.1 [facility] Comment on above: Performed By: #### C BC #### [facility] [address] [place] [address] Dr. Jihan Bryant Basophils/100 WBC (Bld) 0.6 % Normal 0.2-2.0 [facility] Comment on above: Performed By: #### C BC #### [facility] [address] [place] [address] Dr. Jihan Bryant EO # 0.1 103/ul Normal 0.0-0.7 [facility] Comment on above: Performed By: #### C BC #### [facility] [address] [place] [address] Dr. Jihan Bryant Eosinophils/100 WBC (Bld) 1.5 % Normal 0.9-7.0 [facility] Comment on above: Performed By: #### C BC #### [facility] [address] [place] [address] Dr. Jihan Bryant Erythrocyte distribution width (RBC) [Ratio] 13.4 % Normal 11.0-15.0 [facility] Comment on above: Performed By: #### C BC #### [facility] [address] [place] [address] Dr. Jihan Bryant Hematocrit (Bld) [Volume fraction] 46.9 % Normal 36.0-48.0 [facility] Comment on above: Performed By: #### C BC #### [facility] [address] [place] [address] Dr. Jihan Bryant Hemoglobin (Bld) [Mass/Vol] 15.5 g/dL Normal 12.0-16.0 [facility] Comment on above: Performed By: #### C BC #### [facility] [address] [place] [address] Dr. Jihan Bryant IG # 0.04 10e3/ul Critically high 0.00-0.03 [facility] Comment on above: Performed By: #### C BC #### [facility] [address] [place] [address] Dr. Jihan Bryant IG % 0.5 % Normal 0.0-0.5 [facility] Comment on above: Performed By: #### C BC #### [facility] [address] [place] [address] Dr. Jihan Bryant LYMPH # 2.4 103/ul Normal 1.2-3.8 [facility] Comment on above: Performed By: #### C BC #### [facility] [address] [place] [address] Dr. Jihan Bryant Lymphocytes/100 WBC (Bld) 29.5 % Normal 20.5-60.0 [facility] Comment on above: Performed By: #### C BC #### [facility] [address] [place] [address] Dr. Jihan Bryant MANUAL DIFF REQ NO Normal [facility] Comment on above: Performed By: #### C BC #### [facility] [address] [place] [address] Dr. Jihan Bryant MCH (RBC) [Entitic mass] 31.3 pg Normal 26.7-34.0 [facility] Comment on above: Performed By: #### C BC #### [facility] [address] [place] [address] Dr. Jihan Bryant MCHC (RBC) [Mass/Vol] 33.0 g/dL Normal 29.9-35.2 [facility] Comment on above: Performed By: #### C BC #### [facility] [address] [address] [address] Jihan Bryant MCV (RBC) [Entitic vol] 94.7 fL Normal 81.0-99.0 [facility] Comment on above: Performed By: #### C BC #### [facility] [address] [address] [address] Jihan Bryant MONO # 0.6 103/ul Normal 0.3-0.8 [facility] Comment on above: Performed By: #### C BC #### [facility] [address] [address] [address] Jihan Bryant Monocytes/100 WBC (Bld) 7.7 % Normal 1.7-12.0 [facility] Comment on above: Performed By: #### C BC #### [facility] [address] [place] [address] Dr. Jihan Bryant NEUT # 5.0 103/ul Normal 1.4-6.5 [facility] Comment on above: Performed By: #### C BC #### [facility] [address] [place] [address] Dr. Jihan Bryant Neutrophils/100 WBC (Bld) 60.2 % Normal 43.0-75.0 [facility] Comment on above: Performed By: #### C BC #### [facility] [address] [place] [address] Dr. Jihan Bryant Platelet mean volume (Bld) [Entitic vol] 8.9 fL Critically low 9.5-13.5 [facility] Comment on above: Performed By: #### C BC #### [facility] [address] [place] [address] Dr. Jihan Bryant PLT 284 103/ul Normal 150-450 [facility] Comment on above: Performed By: #### C BC #### [facility] [address] [address] [address] Jihan Bryant RBC 4.95 106/ul Normal 4.20-5.40 [facility] Comment on above: Performed By: #### C BC #### [facility] [address] [address] [address] Jihan Bryant WBC 8.3 103/ul Normal 4.0-11.0 [facility] Comment on above: Performed By: #### C BC #### [facility] [address] [address] [address] Jihan Bryant GLYCOHEMOGLOBIN A1Con 2021 ADA RECOMMENDATION SEE BELOW Normal [facility] Comment on above: Result Comment: ADA RECOMMENDED LIMIT 4.0 - 6.0 ADA THERAPEUTIC TARGET < 7.0 ACTION SUGGESTED > 7.0 Performed By: #### A 1C #### [facility] [address] [address] [address] Jihan Bryant Glucose [Mass/Vol] 111 mg/dL Normal [facility] Comment on above: Performed By: #### A 1C #### [facility] [address] [place] [address] Dr. Jihan Bryant HbA1c (Bld) [Mass fraction] 5.5 % Normal 4.5-6.2 [facility] Comment on above: Performed By: #### A 1C #### [facility] [address] [address] [address] Jihan Bryant LIPID PROFILEon 02-25-2022 CHOL-HDL RATIO NORM SEE BELOW Normal [facility] Comment on above: Result Comment: 3.3 - 4.4 LOW RISK 4.4 - 7.1 AVERAGE RISK 7.1 - 11.0 MODERATE RISK >11.0 HIGH RISK Performed By: #### C MP, LIPID, TSH #### [facility] [address] [place] [address] Dr. Jihan Bryant Cholesterol [Mass/Vol] 229 mg/dL Critically high <=200 [facility] Comment on above: Performed By: #### C MP, LIPID, TSH #### [facility] [address] [address] [address] Jihan Bryant Cholesterol in HDL [Mass/Vol] 59 mg/dL Normal 40-60 [facility] Comment on above: Performed By: #### C MP, LIPID, TSH #### [facility] [address] [address] [address] Jihan Bryant Cholesterol in LDL [Mass/Vol] 149.4 mg/dL Normal [facility] Comment on above: Performed By: #### C MP, LIPID, TSH #### [facility] [address] [place] [address] Dr. Jihan Bryant Cholesterol.total/Ch olesterol in HDL [Mass ratio] 3.9 {ratio} Normal [facility] Comment on above: Performed By: #### C MP, LIPID, TSH #### [facility] [address] [address] [address] Jihan Bryant HDL NORMAL > or = 60 mg/dl - LO W CARDIOVASCULAR RISK <40 mg/dl - HIGH CARDIOVASCULAR RISK Normal [facility] Comment on above: Performed By: #### C MP, LIPID, TSH #### [facility] [address] [place] [address] Dr. Jihan Bryant LDL CALC NORMAL SEE BELOW Normal [facility] Comment on above: Result Comment: <100 mg/dl OPTIMAL 100 - 129 mg/dl NEAR OR ABOVE OPTIMAL 130 - 159 mg/dl BORDERLINE HIGH 160 - 189 mg/dl HIGH >190 mg/dl VERY HIGH Performed By: #### C MP, LIPID, TSH #### [facility] [address] [address] [address] Jihan Bryant Triglyceride [Mass/Vol] 103 mg/dL Normal <=150 [facility] Comment on above: Performed By: #### C MP, LIPID, TSH #### [facility] [address] [address] [address] Jihan Bryant VLDL CALC 20.6 mg/dL Normal [facility] Comment on above: Performed By: #### C MP, LIPID, TSH #### [facility] [address] [place] [address] Dr. Jihan Bryant PROF 14(COMP METB)on 022 Albumin [Mass/Vol] 3.9 g/dL Normal 3.4-5.0 [facility] Comment on above: Performed By: #### C MP, LIPID, TSH #### [facility] [address] [place] [address] Dr. Jihan Bryant Albumin/Globulin [Mass ratio] 1.2 {ratio} Normal [facility] Comment on above: Performed By: #### C MP, LIPID, TSH #### [facility] [address] [address] [address] Jihan Bryant ALP [Catalytic activity/Vol] 93 U/L Normal 46-116 [facility] Comment on above: Performed By: #### C MP, LIPID, TSH #### [facility] [address] [address] [address] Jihan Bryant ALT [Catalytic activity/Vol] 22 U/L Normal 14-59 [facility] Comment on above: Performed By: #### C MP, LIPID, TSH #### [facility] [address] [address] [address] Jihan Bryant Anion gap [Moles/Vol] 9.9 mmol/L Normal [facility] Comment on above: Performed By: #### C MP, LIPID, TSH #### [facility] [address] [place] [address] Dr. Jihan Bryant AST [Catalytic activity/Vol] 12 U/L Critically low 15-37 [facility] Comment on above: Performed By: #### C MP, LIPID, TSH #### [facility] [address] [address] [address] Jihan Bryant Bilirubin [Mass/Vol] 0.9 mg/dL Normal 0.2-1.0 [facility] Comment on above: Performed By: #### C MP, LIPID, TSH #### [facility] [address] [place] [address] Dr. Jihan Bryant Calcium [Mass/Vol] 9.1 mg/dL Normal 8.5-10.1 [facility] Comment on above: Performed By: #### C MP, LIPID, TSH #### [facility] [address] [place] [address] Dr. Jihan Bryant Chloride [Moles/Vol] 104 mmol/L Normal 98-107 [facility] Comment on above: Performed By: #### C MP, LIPID, TSH #### [facility] [address] [address] [address] Jihan Bryant CO2 [Moles/Vol] 30.4 mmol/L Normal 21.0-32.0 [facility] Comment on above: Performed By: #### C MP, LIPID, TSH #### [facility] [address] [address] [address] Jihan Bryant Creatinine [Mass/Vol] 0.71 mg/dL Normal 0.55-1.02 [facility] Comment on above: Performed By: #### C MP, LIPID, TSH #### [facility] [address] [address] [address] Jihan Bryant EGFR-AF EGYPTIAN >60 Normal >=60 [facility] Comment on above: Performed By: #### C MP, LIPID, TSH #### [facility] [address] [address] [address] Jihan Bryant EGFR-NON AF EGYPTIAN >60 Normal >=60 [facility] Comment on above: Performed By: #### C MP, LIPID, TSH #### [facility] [address] [address] [address] Jihan Bryant Globulin (S) [Mass/Vol] 3.2 g/dL Normal [facility] Comment on above: Performed By: #### C MP, LIPID, TSH #### [facility] [address] [address] [address] Jihan Bryant Glucose [Mass/Vol] 104 mg/dL Normal 74-106 [facility] Comment on above: Performed By: #### C MP, LIPID, TSH #### [facility] [address] [address] [address] Jihan Bryant Potassium [Moles/Vol] 4.3 mmol/L Normal 3.5-5.1 [facility] Comment on above: Performed By: #### C MP, LIPID, TSH #### [facility] [address] [address] [address] Jihan Bryant Protein [Mass/Vol] 7.1 g/dL Normal 6.4-8.2 [facility] Comment on above: Performed By: #### C MP, LIPID, TSH #### [facility] [address] [address] [address] Jihan Bryant Sodium [Moles/Vol] 140 mmol/L Normal 136-145 [facility] Comment on above: Performed By: #### C MP, LIPID, TSH #### [facility] [address] [address] [address] Jihan Bryant Urea nitrogen [Mass/Vol] 18.0 mg/dL Normal 7.0-18.0 [facility] Comment on above: Performed By: #### C MP, LIPID, TSH #### [facility] [address] [address] [address] Jihan Bryant Urea nitrogen/Creatinine [Mass ratio] 25.4 mg/mg Normal [facility] Comment on above: Performed By: #### C MP, LIPID, TSH #### [facility] [address] [address] [address] Jihan Bryant TSHon 02-25-2022 TSH 2.224 uIU/mL Normal 0.358-3.740 [facility] Comment on above: Performed By: #### C MP, LIPID, TSH #### [facility] [address] [address] [address] Jihan Bryant Ambulatory Clinical Summaryo n 08-19-2020 Ambulatory Clinical Summary {[id number]}CD:[id number] Normal [facility] General Surgery Office/Clini c Noteon 08-19-2020 General Surgery Office/Clinic Note HPI Staff 3 week post operative visit following umbilical hernia repair at [facility]. Denies pain or complications. History of [...] PIERRE, Dilshad Chavez Only if needed [address] [place] [address]- Additional Instructions: Problem List/Past Medical [...] type 2: Mother. Heart disease: Father. Normal [facility] Comment on above: Result Comment: Elec tronically Signed By: NIURKA PIERRE, Dilshad Dahl\Date and Time Signed: 08/19/20 13:26 EST Consultation Noteon 08-11-19 Consultation Note [id number]:127 Normal [facility] RAD - MRI Reporton RAD - MRI Report [id number]:127 Normal [facility] Ambulatory Clinical Summaryo n 08-05-2020 Ambulatory Clinical Summary {[id number]}CD:[id number] Normal [facility] General Surgery Office/Clini c Noteon 08-05-2020 [...] mellitus type 2: Mother. Heart disease: Father. [facility] Comment on above: Result Comment: Elec tronically Signed By: NIURKA PIERRE, Dilshad Chavez\hermes\Date and Time Signed: 08/05/20 17:23 EST Operative Reporton 1 Operative Report [id number] .[id number]:127 [facility] Operative Reporton 1 Operative Report [id number] .00CD:127 [facility] Ambulatory Clinical Summaryo n 07-21-2020 Ambulatory Clinical Summary {[id number]}CD:[id number] [facility] Patient Educationon 07-21-19 21 Patient [...] Document Reviewed: 07/27/2012 ExitCare? Patient Information ?2013 CoNarrative. [facility] Urology Office/Clinic Noteon 07-21-2020 Urology Office/Clinic Note Chief Complaint Pt is new and referred by Dr. Vasquez pt is having ureter stents put in on 07/29/2020. This patient is a 49-year-old female with a history of a left ovarian cyst and umbilical hernia. 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 A request has been [...] Urnls Dip Stick Auto w/o Microscopy POC [id number] I have reviewed the previous health record information and history for this pt. from Dr. Cummings. Follow-up With When Contact Information Emiliano Mcconnell MD, Tony Schaefer [address] [place] [address]- Additional Instructions: Patient Education Urinary Tract Infection [...] Protein Urine Dipstick: Trace (07/21/20 09:04:00) Specific [place] Urine Dipstick: >=1.030 (07/21/20 09:04:00) Urine Appearance Urine Dipstick: Clear (07/21/20 09:04:00) Urine Color Urine Dipstick: Dark yellow (07/21/20 09:04:00) Urobilinogen Urine Dipstick: Normal 0.2-1 EU/dl (07/21/20 09:04:00) pH Urine Dipstick: 5 (07/21/20 09:04:00) Diagnostic Results Urinalysis was reviewed. No evidence of infection was noted. [facility] Comment on above: Result Comment: Elec tronically Signed By: Emiliano Mcconnell MD, Tony Schaefer\.br\Date and Time Signed: 07/21/20 09:57 EST\.br\Electronically Co-Signed By: Deanna Lee MA\.br\Date and Time Co-Signed: 07/21/20 09:49 EST Consent for Procedure/Surger yon 07-08-2020 Consent for Procedure/Surgery [id number] .[id number]:127 Normal [facility] Ambulatory Clinical Summaryo n 06-24-2020 Ambulatory Clinical Summary {[id number]}CD:[id number] [facility] Facesheeton 06-24-2020 Facesheet [id number]:127 Normal [facility] Provider Letter FTon 06-24 Provider Letter [facility], [facility] [place] [address] Re: KIKA KUMAR Date of : 1970 Thank you for your referral of Kika Kumar who was seen on consultation on June 23, 2020, for umbilical hernia. A possible combined surgery is planned. I have enclosed my consultation notes for your review. I will be happy to follow Kika should her symptoms persist. Sincerely, Dilshad Martell MD General Surgery Normal [facility] General Surgery Office/Clini c Noteon 06-23-2020 [...] available Patient Education Exercise to Lose Weight, Fjja-yn-Mbiq Problem List/Past Medical History Ongoing Allergic rhinitis, [...] Primary malignant neoplasm of colon: Father. Normal [facility] Comment on above: Result Comment: Mamie alvarezally Signed By: Dilshad MARTELL MD\Date and Time Signed: 06/23/20 16:50 EST Patient [...] Document Reviewed: 07/22/2011 ExitCare? Patient Information ?2013 [facility] Physician Referralon 020 Physician Referral [id number]:127 Normal [facility] Vital Signs Date Time Vital Sign Value Performing Clinician Rdaames delgado 09-30-2024 13:11-0400 Body mass index (BMI) [Ratio] 27.6 kg/m2 Angelina ARNOLD Work Phone: [facility] 09-30-2024 13:11-0400 Body weight 77.56 kg Angelina Salcedo PA Work Phone: [facility] 09-30-2024 13:11-0400 Diastolic blood pressure 68 mm[Hg] Angelina Salcedo PA Work Phone: [facility] 09-30-2024 13:11-0400 Systolic blood pressure 118 mm[Hg] Angelina ARNOLD Work Phone: [facility] 05-23-2024 08:37-0500 Body mass index (BMI) [Ratio] 29.99 kg/m2 Angelina ARNOLD Work Phone: [facility] 05-23-2024 08:37-0500 Body weight 84.28 kg Angelina Salcedo PA Work Phone: [facility] 05-23-2024 08:37-0500 Diastolic blood pressure 76 mm[Hg] Angelina ARNOLD Work Phone: [facility] 05-23-2024 08:37-0500 Systolic blood pressure 114 mm[Hg] Angelina ARNOLD Work Phone: [facility] Encounters Encounter Date Encounter Type Care Provider Facility Start: 09-30-2024 End: 09-30-2024 Bamboo flowsheet Angelina ARNOLD Work Phone: [facility] Start: 09-30-2024 End: 10-04-2024 Bamboo flowsheet Angelina ARNOLD Work Phone: [facility] Start: 09-30-2024 End: 10-04-2024 Clinisync Result Encounter Angelina ARNOLD Work Phone: [facility] External Department Unsolicited Start: 09-30-2024 End: 09-30-2024 Patient encounter procedure Angelina ARNOLD Work Phone: [facility] Start: 09-30-2024 End: 09-30-2024 Periodic preventive med est patient 40-64yrs Angelina ARNOLD Work Phone: [facility] Comment on above: Well woman exam with routine gynecological exam; Encounter for screening for osteoporosis; Breast cancer screening by mammogram Start: 09-30-2024 End: 09-30-2024 ambulatory ANGELINA SALCEDO Not Available Start: 08-16-2024 End: 08-16-2024 Clinisync Result Encounter [...] Not Available Start: 11-24-2023 End: 11-24-2023 ambulatory [facility] Work Phone: Start: 11-24-2023 End: 11-24-2023 Patient encounter procedure [facility] Work Phone: Start: 11-29-2022 End: 11-29-2022 ambulatory Michelle Cardoza Other [employer] Other Start: 11-29-2022 Nursing evaluation o f patient and report Michelle Cardoza [facility] Start: 10-27-2022 End: 10-28-[address] LYLE VASQUEZ . Facility:[facility] Start: 10-24-2022 End: 10-24-2022 ambulatory Michelle Cardoza Other [employer] Other Start: 10-24-2022 Nursing evaluation o f patient and report Michelle Cardoza [facility] Start: 09-13-2022 End: 09-13-[address] MICHELLE CARDOZA Facility:[facility] Start: 04-28-2022 End: 04-29-[address] MICHELLE CARDOZA Facility:[facility] Start: 02-28-2022 Encounter for genera l adult medical examination without abnormal findings DR MICHELLE CARDOZA [facility] Start: 02-25-2022 End: 02-26-[address] MICHELLE CARDOZA Facility:[facility] Start: 02-25-2022 End: 02-26-2022 Encounter for general adult medical examination without abnormal findings DR MICHELLE CARDOZA Facility:[facility] Procedures Date Procedure Procedure Detail Performing Clinician Start: 09-30-2024 Urnls dip stick/tabl et rgnt non-auto w/o micrscp Angelina ARNOLD Work Phone: Start: 09-30-2024 IGP,APTIMA HPV,AGE GDLN Angelina ARNOLD Work Phone: Start: 08-16-2024 [facility] CMP (CMP) (FOR R [facility] USE) Angelina ARNOLD Work Phone: Start: 07-08-2024 MLR HEMOGLOBIN A1C Angelina ARNOLD Work Phone: Start: 11-29-2023 Mammography Angelina ARNOLD Work Phone: Start: 09-18-2023 Microscopic observat ion [Identifier] in Cervix by Cyto stain Angelina ARNOLD Work Phone: Start: 09-18-2023 Cytp cerv/vag auto t hin layer prep mnl screen Kyaw Cruz DO Work Phone: Start: 09-13-2022 Microscopic observat ion [Identifier] in Cervix by Cyto stain Angelina ARNOLD Work Phone: Plan of Treatment Date Care Activity Detail Author Start: 09-17-2028 Screening for malign ant neoplasm of cervix [facility] Start: 09-09-2026 Screening for malign ant neoplasm of cervix [facility] Start: 10-06-2025 End: 10-06-2025 Patient encounter procedure 10/06/2025 2:00 PM EDT Office Visit [facility] [address] [address] Angelina Salcedo PA [address] [place] [address] [facility] Start: 09-13-2025 Screening for malign ant neoplasm of cervix Pap Smear [facility] Start: 03-03-2025 Influenza vaccination Influenz a Vaccine (Season Ended) [facility] Start: 11-28-2024 Screening for malign ant neoplasm of breast Mammogram [facility] Start: 09-30-2024 End: 09-30-2025 DXA Skeletal system Views for bone density DEXA bone density Imaging Routine Encounter for screening for osteoporosis Expected: 09/30/2024 (Approximate), Expires: 09/30/2025 [facility] Comment on above: Expected: 09/30/2024 (Approximate), Expires: 09/30/2025 Start: 09-30-2024 End: 11-30-2025 MG Breast - bilateral Screening Bilateral screening mammogram Imaging Routine Breast cancer screening by mammogram Expected: 09/30/2024 (Approximate), Expires: 11/30/2025 [facility] Work Phone: Comment on above: Expected: 09/30/2024 (Approximate), Expires: 11/30/2025 Start: 09-30-2024 End: 09-30-2024 Patient encounter procedure [facility] Comment on above: Arrived Start: 09-23-2024 End: 09-23-2024 Patient encounter procedure 09/23/2024 1:00 PM EDT Office Visit [facility] [address] [place] [address] Kyaw Cruz DO [address] [place] [address] [facility] Start: 05-23-2024 End: 05-23-2025 C-peptide C-peptide Lab Routine Hormone disorder Expected: 05/23/2024, Expires: 05/23/2025 [facility] Comment on above: Expected: 05/23/2024 , Expires: 05/23/2025 Start: 05-23-2024 End: 05-23-2025 Cortisol free Cortisol, free Lab Routine Hormone disorder Expected: 05/23/2024, Expires: 05/23/2025 [facility] Comment on above: Expected: 05/23/2024 , Expires: 05/23/2025 Start: 05-23-2024 End: 05-23-2025 DHEA-sulfate DHEA-sulfate Lab Routine Hormone disorder Expected: 05/23/2024 (Approximate), Expires: 05/23/2025 [facility] Comment on above: Expected: 05/23/2024 (Approximate), Expires: 05/23/2025 Start: 05-23-2024 End: 05-23-2025 Estradiol Estradiol Lab Routine Hormone disorder Expected: 05/23/2024 (Approximate), Expires: 05/23/2025 [facility] Work Phone: Comment on above: Expected: 05/23/2024 (Approximate), Expires: 05/23/2025 Start: 05-23-2024 End: 05-23-2025 Estrone Estrone Lab Routine Hormone disorder Expected: 05/23/2024 (Approximate), Expires: 05/23/2025 [facility] Comment on above: Expected: 05/23/2024 (Approximate), Expires: 05/23/2025 Start: 05-23-2024 End: 05-23-2025 Ferritin [Mass/volume] in Serum or Plasma Ferritin Lab Routine Hormone disorder Expected: 05/23/2024 (Approximate), Expires: 05/23/2025 [facility] Comment on above: Expected: 05/23/2024 (Approximate), Expires: 05/23/2025 Start: 05-23-2024 End: 05-23-2025 Glucose [Mass/volume] in Serum or Plasma Glucose, random Lab Routine Hormone disorder Expected: 05/23/2024, Expires: 05/23/2025 [facility] Comment on above: Expected: 05/23/2024 , Expires: 05/23/2025 Start: 05-23-2024 End: 05-23-2025 Hemoglobin A1c/Hemoglobin.total in Blood Hemoglobin A1c Lab Routine Hormone disorder Expected: 05/23/2024 (Approximate), Expires: 05/23/2025 [facility] Comment on above: Expected: 05/23/2024 (Approximate), Expires: 05/23/2025 Start: 05-23-2024 End: 05-23-2025 Insulin, total Insulin, total Lab Routine Hormone disorder Expected: 05/23/2024, Expires: 05/23/2025 [facility] Comment on above: Expected: 05/23/2024 , Expires: 05/23/2025 Start: 05-23-2024 End: 05-23-2025 Progesterone Progesterone Lab Routine Hormone disorder Expected: 05/23/2024 (Approximate), Expires: 05/23/2025 [facility] Comment on above: Expected: 05/23/2024 (Approximate), Expires: 05/23/2025 Start: 05-23-2024 End: 05-23-2025 Serotonin serum Serotonin serum Lab Routine Hormone disorder Expected: 05/23/2024, Expires: 05/23/2025 [facility] Comment on above: Expected: 05/23/2024 , Expires: 05/23/2025 Start: 05-23-2024 End: 05-23-2025 Sex hormone binding globulin Sex hormone binding globulin Lab Routine Hormone disorder Expected: 05/23/2024 (Approximate), Expires: 05/23/2025 [facility] Comment on above: Expected: 05/23/2024 (Approximate), Expires: 05/23/2025 Start: 05-23-2024 End: 05-23-2025 T3, reverse T3, reverse Lab Routine Hormone disorder Expected: 05/23/2024 (Approximate), Expires: 05/23/2025 [facility] Comment on above: Expected: 05/23/2024 (Approximate), [...] Routine Hormone disorder Expected: 05/23/2024, Expires: 05/23/2025 [facility] Comment on above: Expected: 05/23/2024 , Expires: 05/23/2025 Start: 05-23-2024 End: 05-23-2025 Thyroglobulin Antibody Thyroglobulin Antibody Lab Routine Hormone disorder Expected: 05/23/2024, Expires: 05/23/2025 [facility] Comment on above: Expected: 05/23/2024 , Expires: 05/23/2025 Start: 05-23-2024 End: 05-23-2025 Thyroid peroxidase antibody Thyroid peroxidase antibody Lab Routine Hormone disorder Expected: 05/23/2024 (Approximate), Expires: 05/23/2025 [facility] Comment on above: Expected: 05/23/2024 (Approximate), Expires: 05/23/2025 Start: 05-23-2024 End: 05-23-2025 Thyrotropin [Units/volume] in Serum or Plasma [facility] Comment on above: Expected: 05/23/2024 (Approximate), Expires: 05/23/2025 Expected: 05/23/2024 , Expires: 05/23/2025 Start: 05-23-2024 End: 05-23-2025 Thyroxine (T4) free [Mass/volume] in Serum or Plasma T4, free Lab Routine Hormone disorder Expected: 05/23/2024 (Approximate), Expires: 05/23/2025 [facility] Comment on above: Expected: 05/23/2024 (Approximate), Expires: 05/23/2025 Start: 05-23-2024 End: 05-23-2025 Triiodothyronine (T3) Free [Mass/volume] in Serum or Plasma T3, free Lab Routine Hormone disorder Expected: 05/23/2024 (Approximate), Expires: 05/23/2025 [facility] Comment on above: Expected: 05/23/2024 (Approximate), Expires: 05/23/2025 Start: 05-23-2024 End: 05-23-2025 Vitamin D 1,25 dihydroxy Vitamin D 1,25 dihydroxy Lab Routine Hormone disorder Expected: 05/23/2024 (Approximate), Expires: 05/23/2025 [facility] Comment on above: Expected: 05/23/2024 (Approximate), Expires: 05/23/2025 Start: 05-23-2024 End: 05-23-2024 Patient encounter procedure 05/23/2024 8:30 AM EST Office Visit [facility] [address] [id number] Angelina Salcedo PA [address] [place] [address] Arrived [facility] Comment on above: Arrived Start: 03-03-2024 Influenza vaccination Influenza Vacc ine (#1) [facility] Start: 1970 Screening for malign ant neoplasm of colon [facility] THIN PREP TIS PAP AN D HR HPV DNA THIN PREP TIS PAP AND HR HPV DNA Pathology and Cytology Routine Well woman exam with routine gynecological exam Ordered: 09/30/2024 [facility] Comment on above: Ordered: 09/30/2024 Immunizations Immunization Date Immunization Notes Care Provider Fa cility 04-04-2019 influenza virus vacc ine, unspecified formulation Angelina ARNOLD Work Phone: [facility] Payers Date Payer Category Payer Private Health Insurance [employer] [id number] 2023 Blue Cross Blue Shield BC Memb er Subscriber Plan / Payer (Effective 2023-Present) Name: Kika Vidales Member ID: [id number] Relation to Subscriber: Self Name: Kika Vidales Subscriber ID: [id number] Payer ID: Not on file Type: Not on file Address: [address] [place] [address] [id number] 2022 Blue Cross Blue Shield [id number] 2019 Unknown [id number] 1970 Unknown [id number] 1970 Unknown [id number] [id number] 1970 Unknown [id number] 1970 Unknown [id number] 1970 Unknown [id number] 1259 1970 Unknown [id number] 1259 1970 Unknown [id number] 1259 Social History Date Type Detail Facility Start: 08-29-2023 End: 01-18-2024 Sex Assigned At [facility] Other Start: 1970 Sex Assigned At Female [facility] Start: 08-29-2023 Tobacco smoking stat [facility] Never smoked tobacco [facility] Start: 01-18-2024 End: 09-30-2024 Alcoholic beverage intake Current drinker of alcohol (finding) [facility] Start: 08-29-2023 End: 01-18-2024 History of Social function [facility] Start: 1970 Sex assigned at Not on file N [facility] History of Present illness Narrative 09-30-2024 [...] nursing note reviewed. Exam conducted with a uniform attendant present. Vitals: Estimated body mass index is [...] [facility] History of Present illness Narrative 05-23-2024 [...] nursing note reviewed. Exam conducted with a uniform attendant present. Vitals: Estimated body mass index is [...] of: C[place] Case documented in this encounter [facility] Evaluation note 11-29-2022 Note Date & Type Note Facility 11-29-2022 Evaluation note Encounter Date Diagnosis Assessment Notes October, Seasonal allergic rhinitis, unspecified trigger (ICD-10 - J30.2) [facility] [employer] Other Evaluation note 10-24-2022 Note Date & Type Note Facility 10-24-2022 Evaluation note Encounter Date Diagnosis Assessment Notes Oct, Dysuria (ICD-10 - R30.0) [facility] [employer] Other Evaluation note Note Date & Type Note Facility Evaluation note No assessment information [facility] Work Phone: Evaluation note Note Date & [...] section and content) DATE CREATED AUTHOR 08/21/2020 [place] [facility] DATE CREATED AUTHOR AUTHOR'S ORGANIZ ATION 11/04/2022 [facility] DATE CREATED AUTHOR AUTHOR'S ORGANIZ ATION 10/01/2024 [facility] EPIC REASON FOR VISIT [...] November 24, 2023 End: November 24, 2023 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 Relationship Specialty Start Date End Date Michelle Cardoza MD [address] [place] [phone] PCP - General Family Medicine 09/18/23 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 Relationship Specialty Start Date End Date Michelle Cardoza MD [address] [place] [address] PCP - General Family Medicine 09/18/23 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 Relationship Specialty Start Date End Date Michelle Cardoza MD [address] [place] [address] PCP - General Family Medicine 09/18/23 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 Relationship Specialty Start Date End Date Michelle Cardoza MD [address] [place] [address] PCP - General Family Medicine 09/18/23 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 Relationship Specialty Start Date End Date Michelle Cardoza MD [address] [place] [address] PCP - General Family Medicine 09/18/23 [...] BE BASED ON THE PRIMARY CLINICAL RECORDS. [facility]. provides no warranty or guarantee of the accuracy or completeness of information in this document.
[2025-01-16 07:33] LABS: Alanine Aminotransferase 29 U/L (14-59); Albumin Globulin Ratio 1.3; Albumin Level 4.0 g/dL (3.4-5.0); Alkaline Phosphatase 102 U/L (46-116); Anion Gap 12.6; Aspartate Amino Transferase 19 U/L (15-37); Blood Urea Nitrogen 16.0 mg/dL (7.0-18.0); Calcium 9.5 mg/dL (8.5-10.1); Carbon Dioxide 29.7 mmol/L (21.0-32.0); Chloride 108 mmol/L (98-107); Estimated GFR (African America >60 (>=60 mL/min/1.73m^2); Estimated GFR (Non-African Ame >60 (>=60 mL/min/1.73m^2); Globulin 3.2 g/dL; Glucose 108 mg/dL (74-106); Potassium 4.3 mmol/L (3.5-5.1); Sodium 146 mmol/L (136-145); Total Protein 7.2 g/dL (6.4-8.2)
== END 2025-01-16 06:48 | disposition home or self-care (01) ==
LOC: LAB 06:50
PROVIDERS: PCP Family Medicine; Visit Provider Obstetrics & Gynecology
DX: Z76.89 Persons encountering health services in other specified circumstances (principal)
CPT/HCPCS: 36415; 80053